=== PATIENT | female | born 1995 | race Caucasian/White ===

== ENCOUNTER 2016-12-03 14:02 | Outpatient (CLI) | payer OTHER, MEDICAID ==
[2016-12-03 15:20] LABS: APPEARANCE,URINE CLEAR; BILIRUBIN,URINE NEGATIVE (NEGATIVE); GLUCOSE, URINE NEGATIVE (NEGATIVE); KETONES,URINE NEGATIVE (NEGATIVE); LEUKOCYTE ESTERASE,URINE NEGATIVE (NEGATIVE); NITRITE,URINE NEGATIVE (NEGATIVE); PROTEIN,URINE NEGATIVE (NEGATIVE); URINE SPECIFIC GRAVITY 1.001; UROBILINOGEN,URINE NEGATIVE mg/dL (<2.0)
[2016-12-03 15:35] LABS: URINE BARBITURATES SCREEN NEGATIVE; URINE METHADONE SCREEN NEGATIVE; URINE PHENCYCLIDINE SCREEN NEGATIVE
--- NOTE | 2016-12-03 16:01 | L&D Flow Sheet ---
LD Flowsheet Datetime Report Generated by CPN: 12/03/2016 16:00 Datetime: 12/03/2016 15:00 Uterine Activity Frequency (min): Irritability (Kendy Cordero, RNC) Quality: Mild (Kendy Cordero, RNC) Resting Tone (Palpate): Relaxed (Kendy Cordero, RNC) Assessment A Monitor Mode: External US (Kendy Gil, RNC) FHR Baseline Rate : 140 (Kendy Gil, RNC) Variability: Moderate 6-25 bpm (Kendy Gil, RNC) Accelerations: 15X15 (Kendy Gil, RNC) Decelerations: None (Kendy Gil, RNC) Datetime: 12/03/2016 14:55 Vital Signs NBP Sys/Jimena/Mean (mmHg): 108 (QS system process) : 61 (QS system process) : 79 (QS system process) Pulse: 94 (QS system process) Communication LaborFlag: Antepartum (QS system process) Datetime: 12/03/2016 14:30 Uterine Activity Frequency (min): Irritability (Kendyjoe Cordero, RNC) Duration (sec): 20-40 (Kendyjoe Cordero, RNC) Assessment A Monitor Mode: External US (Kendy Gil, RNC) FHR Baseline Rate : 145 (Kendy Gil, RNC) Variability: Moderate 6-25 bpm (Kendy Gil, RNC) Accelerations: None (Kendy Gil, RNC) Decelerations: None (Kendy Gil, RNC) Datetime: 12/03/2016 14:24 Pulse: 147 (QS system process) SpO2 (%): 100 (QS system process) Communication LaborFlag: Antepartum (QS system process) Datetime: 12/03/2016 14:21 Vital Signs NBP Sys/Jimena/Mean (mmHg): 103 (QS system process) : 59 (QS system process) : 76 (QS system process) Pulse: 126 (QS system process) Communication LaborFlag: Antepartum (QS system process)
--- NOTE | 2016-12-08 10:02 | L&D Current Admission ---
Current Admit Datetime Report Generated by CPN: 12/08/2016 10:02 ADMISSION INFORMATION Chief Complaint: Pt arrived to L_D with complaints of SOB for weeks, vaginal pressure, her hips hurting, and cramping. (12/03/2016 14:55:ANGELES Mcnamara)
--- NOTE | 2016-12-08 10:02 | Antepartum Discharge Summary ---
Antepartum DC Datetime Report Generated by CPN: 12/08/2016 10:02 DIET/ACTIVITY/RESTRICTIONS Diet: Regular (12/03/2016 16:29:ANGELES Mcnamara) Activity: Normal Activity (12/03/2016 16:29:Kendy Cordero RNC) TEACHING/INSTRUCTIONS/REFERRALS Instructions Given To: patient (12/03/2016 16:29:ANGELES Mcnamara) Instructions Understood: Patient Verbalized Understanding; Support Person Verbalized Understanding (12/03/2016 16:29:ANGELES Mcnamara) Referrals: None (12/03/2016 16:29:ANGELES Mcnamara) Educational Materials- Other: Term (12/03/2016 16:29:ANGELES Mcnamara) DISCHARGE INFORMATION Discharged AMA: No (12/03/2016 16:29:ANGELES Mcnamara) Discharge Date/Time: 12/03/2016 15:45 (12/03/2016 16:29:ANGELES Mcnamara) Discharged To: Home (12/03/2016 16:29:ANGELES Mcnamara) Discharge Provider Name: Dr. Bella (12/03/2016 16:29:ANGELES Mcnamara) Accompanied By: (12/03/2016 16:29:ANGELES Mcnamara) Discharge Method: Ambulatory (12/03/2016 16:29:ANGELES Mcnamara) Condition: Stable (12/03/2016 16:29:ANGELES Mcnamara) FOLLOW UP INFORMATION Follow Up With: [facility] (12/03/2016 16:29:ANGELES Mcnamara) Follow Up On: As Scheduled (12/03/2016 16:29:ANGELES Mcnamara) Follow Up Phone Number: [facility] - (12/03/2016 16:29:ANGELES Mcnamara) Comments: Pt physically left L_D ambulatory in stable condition with at side. (12/03/2016 16:29:ANGELES Mcnamara)
--- NOTE | 2016-12-08 10:03 | L&D Flow Sheet ---
LD Flowsheet Datetime Report Generated by CPN: 12/08/2016 10:03 Datetime: 12/03/2016 15:39 Comments: Monitors removed from abdomen for d/c home. (Kendy Gil, RNC) Datetime: 12/03/2016 15:00 Uterine Activity Frequency (min): Irritability (Kendy Gil, RNC) Quality: Mild (Kendy Gil, RNC) Resting Tone (Palpate): Relaxed (Kendy Gil, RNC) Assessment A Monitor Mode: External US (Kendy Gil, RNC) FHR Baseline Rate : 140 (Kendy Gil, RNC) Variability: Moderate 6-25 bpm (Kendy Gil, RNC) Accelerations: 15X15 (Kendy Gil, RNC) Decelerations: None (Kendy Gil, RNC) Datetime: 12/03/2016 14:55 Vital Signs NBP Sys/Jimena/Mean (mmHg): 108 (QS system process) : 61 (QS system process) : 79 (QS system process) Pulse: 94 (QS system process) Pain Pain Scale: 1 (Kendy Cordero [facility]) Maternal Assessment Level of Consciousness: Fully Conscious (Kendy Cordero [facility]) DTR's/Clonus: DTRs 2+; No Clonus (Kendy Cordero [facility]) Headache: Denies (Kendy Cordero [facility]) Breath Sounds, Left: Clear and Equal (Kendy Cordero [facility]) Breath Sounds, Right: Clear and Equal (ANGELES Mcnamara) Nausea/Vomiting: Denies (ANGELES Mcnamara) RUQ Epigastric Pain: Denies (ANGELES Mcnamara) Teaching Instructional Method: Verbal; Patient Instructed; Family/Support Person Instructed (ANGELES Mcnamara) Plan of Care: Plan of Care Discussed; Vaginal Delivery; Labor (ANGELES Mcnamara) Unit Routine: [place] to Room; Call Porter; Bed; Monitoring; Bathroom Privileges; Routine Time Outs (ANGELES Mcnamara) Labor/Induction: Labor Stages (ANGELES Mcnamara) Related: Common Discomforts of ; Maternal Physical Changes; Hydration; Activity and Rest (ANGELES Mcnamara) Communication LaborFlag: Antepartum (QS system process) Datetime: 12/03/2016 14:30 Uterine Activity Frequency (min): Irritability (Kendy Gil, RNC) Duration (sec): 20-40 (Kendy Gil, RNC) Assessment A Monitor Mode: External US (Kendy Gil, RNC) FHR Baseline Rate : 145 (Kendy Gil, RNC) Variability: Moderate 6-25 bpm (Kendy Gil, RNC) Accelerations: None (Kendy Gil, RNC) Decelerations: None (Kendy Gil, RNC) Datetime: 12/03/2016 14:24 Pulse: 147 (QS system process) SpO2 (%): 100 (QS system process) Communication LaborFlag: Antepartum (QS system process) Datetime: 12/03/2016 14:21 Vital Signs NBP Sys/Jimena/Mean (mmHg): 103 (QS system process) : 59 (QS system process) : 76 (QS system process) Pulse: 126 (QS system process) Communication LaborFlag: Antepartum (QS system process) Datetime: 11/08/2016 09:30 Communication LaborFlag: Antepartum (QS system process) Datetime: 11/08/2016 09:14 Temperature (C): 37.0 (QS system process) Communication LaborFlag: Antepartum (QS system process) Datetime: 11/08/2016 08:51 Communication LaborFlag: Antepartum (QS system process) Datetime: 11/08/2016 08:43 Temperature (C): 37.1 (QS system process) Communication LaborFlag: Antepartum (QS system process)
--- NOTE | 2016-12-08 10:03 | L&D General Admission ---
General Admit Datetime Report Generated by CPN: 12/08/2016 10:03 INFORMATION Patient Age: 21 (11/08/2016 08:25:QS system process) EDC: 01/05/2017 00:00 (11/08/2016 08:28:Mallory Grimaldo RN) : 2 (11/08/2016 08:28:Mallory Grimaldo RN) Para: 0 (12/03/2016 16:29:ANGELES Mcnamara) Para: 0 (11/08/2016 08:28:Mallory Grimaldo RN) Term: 0 (11/08/2016 08:28:Mallory Grimaldo RN) : 0 (11/08/2016 08:28:Mallory Grimaldo RN) Spontaneous Abortions: 1 (11/08/2016 08:28:Mallory Grimaldo RN) Induced Abortions: 0 (11/08/2016 08:28:Mallory Grimaldo RN) Livin (11/08/2016 08:28:Mallory Grimaldo RN) Cesareans: 0 (11/08/2016 08:28:Mallory Grimaldo RN) VBACs: 0 (11/08/2016 08:28:Mallory Grimaldo RN) Ectopic: 0 (11/08/2016 08:28:Mallory Grimaldo RN) Multiple Births: 0 (11/08/2016 08:28:Mallory Grimaldo RN) Baby, Number in Womb: 1 (12/03/2016 16:29:ANGELES Mcnamara) Baby, Number in Womb: 1 (11/08/2016 08:28:Mallory Grimaldo RN) CARE Primary Machinist Mate: [facility] (11/08/2016 08:28:Mallory Grimaldo RN) Month of 1st Visit: April (11/08/2016 08:28:Mallory Grimaldo RN) Adequate Care: Yes (11/08/2016 08:28:Mallory Grimaldo RN) Height (in): 67 (12/03/2016 14:33:QS system process) Height (in): 67 (11/08/2016 09:13:QS system process) Height (in): 67 (11/08/2016 08:44:QS system process) Height (in): 67 (11/08/2016 08:39:QS system process) Height (in): 67 (11/08/2016 08:38:QS system process) ALLERGIES Medication Allergy: No (11/08/2016 08:28:Mallory Grimaldo RN) Medication Allergies: No Known Allergies (12/03/2016) (12/03/2016 14:33:QS system process) Medication Allergies: None (11/08/2016 08:28:Mallory Grimaldo RN) Latex Allergy: No Latex Allergies (11/08/2016 08:28:Mallory Grimaldo RN) Food Allergies: None (11/08/2016 08:28:Mallory Grimaldo RN) Environmental Allergies: None (11/08/2016 08:28:Mallory Grimaldo RN) COMMUNICATION Primary Language: Yakut (11/08/2016 08:28:Mallory Grimaldo RN) Communication Barrier(s): None (11/08/2016 08:28:Mallory Grimaldo RN) DEMOGRAPHICS Address: [address] [place] [address], [place] [address] (11/08/2016 08:25:QS system process) Zipcode: [address] (11/08/2016 08:25:QS system process) Home (11/08/2016 08:25:QS system process) SSN: [id number] (11/08/2016 08:25:QS system process) Next of Kin Name: MANUEL OLIVAREZ (11/08/2016 08:25:QS system process) Next of Kin (11/08/2016 08:25:QS system process) Next of Kin Relationship: OR (11/08/2016 08:25:QS system process) Date of : 1995 (11/08/2016 08:25:QS system process) Marital Status: Single (11/08/2016 08:25:QS system process) Sex: Female (11/08/2016 08:25:QS system process) Race: (11/08/2016 08:25:QS system process) Ethnicity: Non- or (11/08/2016 08:25:QS system process) Amish: None (11/08/2016 08:25:QS system process) DRUG AND ALCOHOL USE Alcohol: No (11/08/2016 08:28:Mallory Grimaldo RN) Cigarettes: Never Smoker. [id number] (11/08/2016 08:28:Mallory Grimaldo RN) Marijuana: No (11/08/2016 08:28:Mallory Grimaldo RN) Cocaine: No (11/08/2016 08:28:Mallory Grimaldo RN) Other Illicit Drugs: Yes (11/08/2016 08:28:Mallory Grimaldo RN) VACCINE HISTORY Influenza Vaccine: No (11/08/2016 08:28:Mallory Grimaldo RN) Pneumococcal Vaccine: No (11/08/2016 08:28:Mallory Grimaldo RN) Tetanus Vaccine: Yes (11/08/2016 08:28:Mallory Grimaldo RN) Tetanus Date: 11/02/2016 (11/08/2016 08:28:Mallory Grimaldo RN) Tdap Vaccine: Yes (11/08/2016 08:28:Mallory Grimaldo RN) Tdap Date: 11/02/2016 (11/08/2016 08:28:Mallory Grimaldo RN) Hepatitis B Vaccine: No (11/08/2016 08:28:Mallory Grimaldo RN) Computer Numerical Control Grinder: [facility] (11/08/2016 08:28:Mallory Grimaldo RN) Feeding Preference: Breast (11/08/2016 08:28:Mallory Grimaldo RN) Benefit of Breast Feed Discussed: Yes (11/08/2016 08:28:Mallory Grimaldo RN) Circumcision: N/A (11/08/2016 08:28:Mallory Grimaldo RN) Classes Attended: Mariya (11/08/2016 08:28:Mallory Grimaldo RN) Tubal Ligation: No (11/08/2016 08:28:Mallory Grimaldo RN) Tubal Authorization Signed: N/A (11/08/2016 08:28:Mallory Grimaldo RN) Consent: N/A (11/08/2016 08:28:Mallory Grimaldo RN) Consent Signed: N/A (11/08/2016 08:28:Mallory Grimaldo RN) Pain Management Plans: Natural; Medications (11/08/2016 08:28:Mallory Grimaldo RN) Plans for Labor and Delivery: None (11/08/2016 08:28:Mallory Grimaldo RN) Support Person: Manuel Olivarez (11/08/2016 08:28:Mallory Grimaldo RN) Support Person Relationship: (11/08/2016 08:28:Mallory Grimaldo RN) Cultural/Spritual Practice: Mariya (11/08/2016 08:28:Mallory Grimaldo RN) Spir/Cult Dietary Needs: No (11/08/2016 08:28:Mallory Grimaldo RN) LIVING SITUATION/DISCHARGE PLAN Living Arrangements: House (11/08/2016 08:28:Mallory Grimaldo RN) Adequate Access to:: Electric; Heat; Refrigeration; Plumbing/Running water; Phone; Transportation (11/08/2016 08:28:Mallory Grimaldo RN) WIC Program: Mariya (11/08/2016 08:28:Mallory Grimaldo RN) Discharge Outpatient Program Coordinator Person: Manuel Olivarez (11/08/2016 08:28:Mallory Grimaldo RN) Person to Help after Discharge: Manuel Olivarez (11/08/2016 08:28:Mallory Grimaldo RN) Currently Using Commun Resources: No (11/08/2016 08:28:Mallory Grimaldo RN) Outside Agency/Project Associate: No (11/08/2016 08:28:Mallory Grimaldo RN) Car Seat for Discharge: Yes (11/08/2016 08:28:Mallory Grimaldo RN) Adoption Requested: No (11/08/2016 08:28:Mallory Grimaldo RN) Pt Contact w/ Post : N/A (11/08/2016 08:28:Mallory Grimaldo RN) LABS Blood Type: O Positive (11/08/2016 08:28:Mallory Grimaldo RN) RPR/VDRL: Nonreactive (11/08/2016 08:28:Mallory Grimaldo RN) HIV Exposure Test: Negative (11/08/2016 08:28:Mallory Grimaldo RN) OB/PREVIOUS HISTORY Previous Procedures: None (11/08/2016 08:28:Mallory Grimaldo RN) Current Procedures: Ultrasound; NST (11/08/2016 08:28:Mallory Grimaldo RN) History of Previous : No (11/08/2016 08:28:Mallory Grimaldo RN) History of Gestational Diabetes: No (11/08/2016 08:28:Mallory Grimaldo RN) History of PIH: No (11/08/2016 08:28:Mallory Grimaldo RN) History of Incompetent Cervix: No (11/08/2016 08:28:Mallory Grimaldo RN) History of Placenta Previa/Abrup: No (11/08/2016 08:28:Mallory Grimaldo RN) History of Macrosomia: No (11/08/2016 08:28:Mallory Grimaldo RN) History of IUGR: No (11/08/2016 08:28:Mallory Grimaldo RN) History of Hemorrhage: No (11/08/2016 08:28:Mallory Grimaldo RN) History of Loss/Stillborn: No (11/08/2016 08:28:Mallory Grimaldo RN) History of : No (11/08/2016 08:28:Mallory Grimaldo RN) History of D (Rh) Sensitization: No (11/08/2016 08:28:Mallory Grimaldo RN) History Recurrent Loss/Stillborn: No (11/08/2016 08:28:Mallory Grimaldo RN) History Depression/PP Depression: No (11/08/2016 08:28:Mallory Grimaldo RN) History of Uterine Anomaly/VALENTIN: No (11/08/2016 08:28:Mallory Grimaldo RN) History of Infertility: No (11/08/2016 08:28:Mallory Grimaldo RN) History of ART Treatment: No (11/08/2016 08:28:Mallory Grimaldo RN) History of VALENTIN: No (11/08/2016 08:28:Mallory Grimaldo RN) Comments Obstetrical History: G1 - SAB with D_C in 2013 (8 weeks) (11/08/2016 08:28:Mallory Grimaldo RN) MEDICAL HISTORY Med Hx Diabetes: No (11/08/2016 08:28:Mallory Grimaldo RN) Med Hx Hypertension: No (11/08/2016 08:28:Mallory Grimaldo RN) Med Hx Heart Disease: No (11/08/2016 08:28:Mallory Grimaldo RN) Med Hx Autoimmune Disorder: No (11/08/2016 08:28:Mallory Grimaldo RN) Med Hx Kidney Disease/UTI: No (11/08/2016 08:28:Mallory Grimaldo RN) Med Hx Neurologic/Epilepsy: No (11/08/2016 08:28:Mallory Grimaldo RN) Med Hx Psychiatric Disorders: No (11/08/2016 08:28:Mallory Grimaldo RN) Med Hx Hepatitis/Liver Disease: No (11/08/2016 08:28:Mallory Grimaldo RN) Med Hx Varicosities/Phlebitis: No (11/08/2016 08:28:Mallory Grimaldo RN) Med Hx Thyroid Dysfunction: No (11/08/2016 08:28:Mallory Grimaldo RN) Med Hx Trauma/Violence: No (11/08/2016 08:28:Mallory Grimaldo RN) Med Hx Blood Transfusion: No (11/08/2016 08:28:Mallory Grimaldo RN) Med Hx Pulmonary (Asthma,TB): No (11/08/2016 08:28:Mallory Grimaldo RN) Med Hx Breast: No (11/08/2016 08:28:Mallory Grimaldo RN) Med Hx MOLD PULLER Surgery: No (11/08/2016 08:28:Mallory Grimaldo RN) Med Hx Hospitalization/Surgery: No (11/08/2016 08:28:Mallory Grimaldo RN) Med Hx Anesthetic Complications: No (11/08/2016 08:28:Mallory Grimaldo RN) Med Hx Abnormal Pap Smear: Yes (11/08/2016 08:28:Mallory Grimaldo RN) Other Medical Diseases: No (11/08/2016 08:28:Mallory Grimaldo RN) Med Hx Significant Family Hx: No (11/08/2016 08:28:Mallory Grimaldo RN) Details of Med/Surg Hx: LGSIL - colpo 6 weeks pp (11/08/2016 08:28:Mallory Grimaldo RN) INFECTIOUS HISTORY Inf Hx Gonorrhea: No (11/08/2016 08:28:Mallory Grimaldo RN) Inf Hx Chlamydia: Yes (11/08/2016 08:28:Mallory Grimaldo RN) Inf Hx Syphilis: No (11/08/2016 08:28:Mallory Grimaldo RN) Inf Hx HIV/AIDS: No (11/08/2016 08:28:Mallory Grimaldo RN) Inf Hx Human Papilloma Virus: Yes (11/08/2016 08:28:Mallory Grimaldo RN) Inf Hx Pt/Partner Genital Herpes: No (11/08/2016 08:28:Mallory Grimaldo RN) Inf Hx Tuberculosis/Exposure: No (11/08/2016 08:28:Mallory Grimaldo RN) Inf Hx Hepatitis B,C: No (11/08/2016 08:28:Mallory Grimaldo RN) Inf Hx Rash or Viral Illness: No (11/08/2016 08:28:Mallory Grimaldo RN) Details of Infectious Hx: Hx of Chlamydia. MEHDI on 07/13/2016 (11/08/2016 08:28:Mallory Grimaldo RN) GENETIC HISTORY Gen Hx Age >=35 at SHAMIR: No (11/08/2016 08:28:Mallory Grimaldo RN) Gen Hx Thalassemia: No (11/08/2016 08:28:Mallory Grimaldo RN) Gen Hx Congenital Heart Defect: No (11/08/2016 08:28:Mallory Grimaldo RN) Gen Hx Neural Tube Defect: No (11/08/2016 08:28:Mallory Grimaldo RN) Gen Hx Down's Syndrome: No (11/08/2016 08:28:Mallory Grimaldo RN) Gen Hx Chinmay-Sachs: No (11/08/2016 08:28:Mallory Grimaldo RN) Gen Hx Jalil: No (11/08/2016 08:28:Mallory Grimaldo RN) Gen Hx Familial Dysautonomia: No (11/08/2016 08:28:Mallory Grimaldo RN) Gen Hx Sickle Cell Disease/Trait: No (11/08/2016 08:28:Mallory Grimaldo RN) Gen Hx Hemophilia/Blood Disorder: No (11/08/2016 08:28:Mallory Grimaldo RN) Gen Hx Muscular Dystrophy: No (11/08/2016 08:28:Mallory Grimaldo RN) Gen Hx Cystic Fibrosis: No (11/08/2016 08:28:Mallory Grimaldo RN) Gen Hx Huntingtons Chorea: No (11/08/2016 08:28:Mallory Grimaldo RN) Gen Hx Mental Retardation/Autism: No (11/08/2016 08:28:Mallory Grimaldo RN) Gen Hx Tested for Fragile X: No (11/08/2016 08:28:Mallory Grimaldo RN) Gen Hx Other Inher/Chromosomal: No (11/08/2016 08:28:Mallory Grimaldo RN) Gen Hx Maternal Metabolic DO: No (11/08/2016 08:28:Mallory Grimaldo RN) Gen Hx Pt Father or FOB Defect: No (11/08/2016 08:28:Mallory Grimaldo RN) Gen Hx Other Genetic History: No (11/08/2016 08:28:Mallory Grimaldo RN) Gen Hx Drugs/Meds since LMP: No (11/08/2016 08:28:Mallory Grimaldo RN)
--- NOTE | 2016-12-08 10:04 | L&D Discharge Summary ---
OB Discharge Summary Datetime Report Generated by CPN: 12/08/2016 10:04 DISCHARGE DIAGNOSIS Diagnosis/Symptoms: Round Ligament Syndrome Diagnoses/Symptoms Other: IUP at 35.2 weeks with common discomforts of Gestation: 35.2 Number of Babies in Womb: 1 Parity: 0 DIET/ACTIVITY/RESTRICTIONS Diet: Regular Activity: Normal Activity TEACHING/INSTRUCTIONS/REFERRALS Instructions Given To: patient Instructions Understood: Patient Verbalized Understanding; Support Person Verbalized Understanding Referrals: None Educational Materials- Other: Term DISCHARGE INFORMATION Discharged AMA: No Physician Notified of Disch AMA: DrSteffanie Menesess Discharge Date/Time: 12/03/2016 15:45 Discharged To: Home Discharge Provider Name: Bella Accompanied By: Discharge Method: Ambulatory Condition: Stable FOLLOW UP INFORMATION Follow Up With: [facility] Follow Up On: As Scheduled Follow Up Phone Number: [facility] - Comments: Pt physically left L_D ambulatory in stable condition with at side.
--- NOTE | 2016-12-08 10:04 | Non Stress Test Report ---
Non Stress Test Datetime Report Generated by CPN: 12/08/2016 10:03 DEMOGRAPHIC EGA NST: 35.2 INDICATION Indication for Study: Other Indication for Study (NST) Other: LC MONITORING Monitor Explained: Monitor Explained; Test Explained; Patient Verbalized Understanding Time on Monitor: 12/03/2016 14:55 Time off Monitor: 12/03/2016 15:39 NST Duration: 44 NST INTERVENTIONS NST Interventions: PO Hydration; Reposition Patient Physician Notified NST: Dr. Bella BABY A: [id number] Movement : Present Contraction Frequency : Irr FHR Baseline : 135 Accelerations : 15X15 Decelerations : None Variability : Moderate 6-25bpm NST Review: Meets Criteria for Reactive NST NST Results: Reactive
== END 2016-12-03 15:45 | disposition home or self-care (01) ==
LOC: LC 14:02
PROVIDERS: ATTEND Specialist
PROC: 4A1HXCZ Monitoring of Products of Conception, Cardiac Rate, External Approach (ICD-10-PCS; principal; 2016-12-03)
DX: Z34.93 Encounter for supervision of normal pregnancy, unspecified, third trimester (principal); Z3A.35 35 weeks gestation of pregnancy
CPT/HCPCS: 59025; 80307; 81001

== ENCOUNTER 2016-12-19 21:37 | Outpatient (CLI) | payer OTHER, MEDICAID ==
--- NOTE | 2016-12-19 22:01 | L&D Flow Sheet ---
LD Flowsheet Datetime Report Generated by CPN: 12/19/2016 22:00 Datetime: 12/19/2016 21:53 Vital Signs NBP Sys/Jimena/Mean (mmHg): 129 (QS system process) : 82 (QS system process) : 100 (QS system process) Pulse: 104 (QS system process) Communication LaborFlag: Antepartum (QS system process) Datetime: 12/19/2016 21:50 Uterine Activity Frequency (min): every 2 minutes per pt (Yessi Ring, RN) Vaginal Exam Membrane Status: Intact (Yessi Ring, RN) Vaginal Bleeding: None (Yessi Ring, RN) Maternal Assessment Level of Consciousness: Fully Conscious (Yessi Ring, RN) DTR's/Clonus: DTRs 2+; No Clonus (Yessi Ring, RN) Headache: Denies (Yessi Ring, RN) Breath Sounds, Left: Clear and Equal (Yessi Ring, RN) Breath Sounds, Right: Clear and Equal (Yessi Ring, RN) Nausea/Vomiting: Present (Annotations: Nauseated) (Yessi Ring, RN) RUQ Epigastric Pain: Denies (Yessi Ring, RN)
[2016-12-19 22:07] LABS: APPEARANCE,URINE CLEAR; BILIRUBIN,URINE NEGATIVE (NEGATIVE); GLUCOSE, URINE NEGATIVE (NEGATIVE); KETONES,URINE NEGATIVE (NEGATIVE); LEUKOCYTE ESTERASE,URINE NEGATIVE (NEGATIVE); NITRITE,URINE NEGATIVE (NEGATIVE); PROTEIN,URINE NEGATIVE (NEGATIVE); URINE SPECIFIC GRAVITY 1.006; UROBILINOGEN,URINE NEGATIVE mg/dL (<2.0)
[2016-12-19 22:22] LABS: URINE BARBITURATES SCREEN NEGATIVE; URINE METHADONE SCREEN NEGATIVE; URINE OPIATES LOW NEGATIVE; URINE PHENCYCLIDINE SCREEN NEGATIVE
[2016-12-19] MEDS ORDERED: ZOLPIDEM TARTRATE 5 MG TABLET PO ONE (23:13)
[2016-12-19] MEDS ORDERED: ZOLPIDEM TARTRATE 5 MG TABLET ONE (23:25)
--- NOTE | 2017-01-03 23:50 | Non Stress Test Report ---
Non Stress Test Datetime Report Generated by CPN: 01/03/2017 23:49 DEMOGRAPHIC EGA NST: 37.4 EGA NST: 35.2 INDICATION Indication for Study: Ordered by Provider Indication for Study: Other Indication for Study (NST) Other: labor check Indication for Study (NST) Other: LC URINE RESULTS Urine Protein, NST: Negative Urine Ketones - NST: Negative Urine Glucose - NST: Negative Urine Blood - NST: Negative MONITORING Monitor Explained: Monitor Explained; Test Explained; Patient Verbalized Understanding Monitor Explained: Monitor Explained; Test Explained; Patient Verbalized Understanding Time on Monitor: 12/19/2016 21:55 Time on Monitor: 12/03/2016 14:55 Time off Monitor: 12/19/2016 23:19 Time off Monitor: 12/03/2016 15:39 NST Duration: 84 NST Duration: 44 NST INTERVENTIONS NST Interventions: PO Hydration NST Interventions: PO Hydration; Reposition Patient Physician Notified NST: Dr. Gauthier Physician Notified NST: Dr. Bella BABY A: [id number] BABY A Movement : Present Movement : Present Contraction Frequency : 1-2.5 Contraction Frequency : Irr FHR Baseline : 145 FHR Baseline : 135 Accelerations : 15X15 Accelerations : 15X15 Decelerations : None Decelerations : None Variability : Moderate 6-25bpm Variability : Moderate 6-25bpm NST Review: Meets Criteria for Reactive NST NST Review: Meets Criteria for Reactive NST NST Review and Verified By : Steph Hargrove RN NST Results: Reactive NST Results: Reactive NST REPORT Report Trigger: Send Report
== END 2016-12-19 23:27 | disposition home or self-care (01) ==
LOC: LC 21:37
PROVIDERS: ATTEND Specialist
PROC: 4A1HXCZ Monitoring of Products of Conception, Cardiac Rate, External Approach (ICD-10-PCS; principal; 2016-12-19)
DX: O47.1 False labor at or after 37 completed weeks of gestation (principal); Z3A.37 37 weeks gestation of pregnancy
CPT/HCPCS: 59025; 80307; 81005

== ENCOUNTER 2017-01-03 23:51 | Outpatient (CLI) | payer OTHER, MEDICAID ==
[2017-01-04 00:44] LABS: BILIRUBIN,URINE NEGATIVE (NEGATIVE); GLUCOSE, URINE NEGATIVE (NEGATIVE); KETONES,URINE NEGATIVE (NEGATIVE); LEUKOCYTE ESTERASE,URINE NEGATIVE (NEGATIVE); NITRITE,URINE NEGATIVE (NEGATIVE); PROTEIN,URINE NEGATIVE (NEGATIVE); UROBILINOGEN,URINE NEGATIVE mg/dL (<2.0)
[2017-01-04 00:45] LABS: APPEARANCE,URINE CLEAR; URINE SPECIFIC GRAVITY 1.005
[2017-01-04 00:46] LABS: URINE BARBITURATES SCREEN NEGATIVE; URINE METHADONE SCREEN NEGATIVE; URINE OPIATES LOW NEGATIVE; URINE PHENCYCLIDINE SCREEN NEGATIVE
[2017-01-04] MEDS ORDERED: HYDROXYZINE PAMOATE 50 MG CAPSULE PO ONE (02:07)
[2017-01-04] MEDS ORDERED: HYDROXYZINE PAMOATE 50 MG CAPSULE ONE (02:16)
--- NOTE | 2017-01-04 04:45 | L&D Discharge Summary ---
OB Discharge Summary Datetime Report Generated by CPN: 01/04/2017 04:45 DISCHARGE DIAGNOSIS Diagnosis/Symptoms: False Labor Diagnoses/Symptoms Other: IUP at 35.2 weeks with common discomforts of Treatment/Procedures Other: PO Hydration Gestation: 39.5 Number of Babies in Womb: 1 Parity: 0 DIET/ACTIVITY/RESTRICTIONS Diet: Regular Activity: Normal Activity TEACHING/INSTRUCTIONS/REFERRALS Instructions Given To: pt, Instructions Understood: Patient Verbalized Understanding; Support Person Verbalized Understanding Referrals: None Educational Materials- Other: Term DISCHARGE INFORMATION Discharged AMA: No Physician Notified of Disch AMA: Dr. Bella Discharge Date/Time: 01/04/2017 02:21 Discharged To: Home Discharge Provider Name: Morris Accompanied By: Discharge Method: Ambulatory Condition: Stable FOLLOW UP INFORMATION Follow Up With: [facility] Follow Up On: As Scheduled Follow Up Phone Number: [facility] - Comments: Pt to LD c/o UC's q5 min. Pt placed on monitor, SVE 1.5/60/-2. Pt ambulated around unit x1 hour, SVE recheck unchanged. Vistiril 50mg PO administered. Pt educated on term and when to return to hospital. Pt/ verbalized understanding and demonstrated understanding. Pt to f/u with [facility] as scheduled. Pt d/c to home in stable condition.
--- NOTE | 2017-01-04 04:45 | L&D Current Admission ---
Current Admit Datetime Report Generated by CPN: 01/04/2017 04:45 ADMISSION INFORMATION Chief Complaint: Contractions (Annotations: Pt c/o contractions starting at 1900, approx every 5 min apart rating a 3 out of 5 in pain. ) (01/04/2017 00:15:Shweta Rogers RN) Chief Complaint: Contractions (12/19/2016 21:50:Yessi Hargrove RN) Chief Complaint: Pt arrived to L_D with complaints of SOB for weeks, vaginal pressure, her hips hurting, and cramping. (12/03/2016 14:55:ANGELES Mcnamara) Chief Complaint: Uterine Cramping; Back Pain (11/08/2016 08:51:Mallory Grimaldo RN)
--- NOTE | 2017-01-04 04:45 | Antepartum Discharge Summary ---
Antepartum DC Datetime Report Generated by CPN: 01/04/2017 04:45 DIET/ACTIVITY/RESTRICTIONS Diet: Regular (01/04/2017 02:21:Shweta Errichiello, RN) Activity: Normal Activity (01/04/2017 02:21:Shweta Errichiello, RN) TEACHING/INSTRUCTIONS/REFERRALS Instructions Given To: pt, (01/04/2017 02:21:Shweta Sheilaichiello, RN) Instructions Understood: Patient Verbalized Understanding; Support Person Verbalized Understanding (01/04/2017 02:21:Shweta Rogers RN) Referrals: None (01/04/2017 02:21:Shweta Rogers RN) Educational Materials- Other: Term (01/04/2017 02:21:Shweta Rogers RN) DISCHARGE INFORMATION Discharged AMA: No (01/04/2017 02:21:Shweta Rogers RN) Discharge Date/Time: 01/04/2017 02:21 (01/04/2017 02:21:Shweta Rogers RN) Discharged To: Home (01/04/2017 02:21:Shweta Rogers RN) Discharge Provider Name: Dr Caceres (01/04/2017 02:21:Shweta Rogers RN) Accompanied By: (01/04/2017 02:21:Shweta Rogers RN) Discharge Method: Ambulatory (01/04/2017 02:21:Shweta Rogers RN) Condition: Stable (01/04/2017 02:21:Shweta Rogers RN) FOLLOW UP INFORMATION Follow Up With: [facility] (01/04/2017 02:21:Shweta Rogers RN) Follow Up On: As Scheduled (01/04/2017 02:21:Shweta Rogers RN) Follow Up Phone Number: [facility] - (01/04/2017 02:21:Shweta Rogers RN) Comments: Pt to LD c/o UC's q5 min. Pt placed on monitor, SVE 1.5/60/-2. Pt ambulated around unit x1 hour, SVE recheck unchanged. Vistiril 50mg PO administered. Pt educated on term and when to return to hospital. Pt/ verbalized understanding and demonstrated understanding. Pt to f/u with [facility] as scheduled. Pt d/c to home in stable condition. (01/04/2017 02:21:Shweta Rogers RN)
--- NOTE | 2017-01-04 04:45 | L&D Flow Sheet ---
LD Flowsheet Datetime Report Generated by CPN: 01/04/2017 04:45 Datetime: 01/04/2017 02:21 Communication Comments: Pt d/c off unit via ambulation in stable condition. (Shweta Errichiello, RN) Datetime: 01/04/2017 02:20 Medications Medication Comments: Visitiril 50mg PO (Shweta Errichiello, RN) Datetime: 01/04/2017 02:09 Maternal Comments: Monitors removed and turned off to prepare for pt discharge. (Shweta Errichiello, RN) Datetime: 01/04/2017 02:06 Communication Comments: Call placed to Dr Morris MD made aware of pt condition, complaints and SVE. Orders received for Visitiril 50mg PO NOW, d/c to home and f/u with [facility] as scheduled. Orders carried out. (Shweta Errichiello, RN) Datetime: 01/04/2017 02:04 Vaginal Exam Dilatation (cm): 1.5 (Shweta Errichiello, RN) Effacement (%): 60 (Shweta Errichiello, RN) Station: -2 (Shweta Errichiello, RN) Exam by: C Fore RN (Shweta Errichiello, RN) Datetime: 01/04/2017 00:59 Vital Signs Stage of : Antepartum (Shweta Sheilaichiello, RN) Uterine Activity Monitor Mode: External (Shweta Sheilaichiello, RN) Frequency (min): 1.5-3 (Shweta Ken, RN) Quality: Mild/Moderate (Shweta Sheilaichiello, RN) Duration (sec): 50-90 (Shweta Ken, RN) Resting Tone (Palpate): Relaxed (Shweta Sheilaichiello, RN) Assessment A Monitor Mode: External US (Shweta Rogers, RN) FHR Baseline Rate : 135 (Shweta Rogers, RN) FHR Baseline Changes: No Baseline Change (Shweta Ken, RN) Variability: Moderate 6-25 bpm (Shweta Errichiello, RN) Accelerations: 15X15 (Shweta Errichiello, RN) Decelerations: None (Shweta Sheilaichibryant, RN) Maternal Comments: Monitors removed and turned off for pt to ambulate around 2nd floor. (Shweta Errichiello, RN) Patient Care Patient Position/Activity: Left Tilt; Semi-Fowlers (Shweta Errichiello, RN) Communication Communication: RN at Bedside; RN Reviewed Strip (Shweta Errichiello, RN) Datetime: 01/04/2017 00:40 NBP Sys/Jimena/Mean (mmHg): 123 (QS system process) : 74 (QS system process) : 91 (QS system process) Pulse: 88 (QS system process) LaborFlag: Antepartum (QS system process) Datetime: 01/04/2017 00:30 Vital Signs Stage of : Antepartum (Shweta Errichiello, RN) Uterine Activity Monitor Mode: External (Shweta Errichiello, RN) Frequency (min): 2-3 (Shweta Rogers, RN) Quality: Mild/Moderate (Shweta Ken, RN) Duration (sec): 60-120 (Shweta Rogers, RN) Resting Tone (Palpate): Relaxed (Shweta Ken, RN) Assessment A Monitor Mode: External US (Shweta Rogers, RN) FHR Baseline Rate : 135 (Shweta Rogers, RN) FHR Baseline Changes: No Baseline Change (Shweta Melaniaello, RN) Variability: Moderate 6-25 bpm (Shweta Melaniaello, RN) Accelerations: 15X15 (Shweta Ken, RN) Decelerations: None (Shweta Melaniaello, RN) Communication Communication: RN at Bedside; RN Reviewed Strip (Shweta Rogers, RN) Datetime: 01/04/2017 00:27 I/O Interventions: Popsicle (Shweta Errichiello, RN) Datetime: 01/04/2017 00:15 Vital Signs Stage of : Antepartum (Shweta Errichiello, RN) Uterine Activity Monitor Mode: External (Shweta Errichiello, RN) Frequency (min): 2.5-3 (Shweta Errichiello, RN) Quality: Mild/Moderate (Shweta Errichiello, RN) Duration (sec): 70-80 (Shweta Errichiello, RN) Resting Tone (Palpate): Relaxed (Shweta Errichiello, RN) Assessment A Monitor Mode: External US (Shweta Errichiello, RN) FHR Baseline Rate : 145 (Shweta Errichiello, RN) FHR Baseline Changes: No Baseline Change (Shweta Errichiello, RN) Variability: Moderate 6-25 bpm (Shweta Errichiello, RN) Accelerations: 10X10 (Shweta Errichiello, RN) Decelerations: None (Shweta Errichiello, RN) Pain Pain Scale: 3 (Shweta Errichiello, RN) Pain Presence: None/Denies (Shweta Errichiello, RN) Pain Presence: Intermittent (Shweta Rogers RN) Pain Type: Contraction (Shweta Rogers RN) Pain Location: Abdomen (Shweta Rogers RN) Pain Goal: 1 (Shweta Rogers RN) Pain Relief Measures: Comfort Measures (Shweta Rogers RN) Pain Coping: Talking Through Contractions (Shweta Rogers RN) Maternal Assessment Level of Consciousness: Fully Conscious (Shweta Rogers RN) Maternal Assessment Level of Consciousness: Fully Conscious (Shweta Rogers RN) DTR's/Clonus: DTRs 2+; No Clonus (Shweta Rogers RN) DTR's/Clonus: DTRs 2+; No Clonus (Shweta Rogers RN) Headache: Denies (Shweta Rogers RN) Headache: Denies (Shweta Rogers RN) Breath Sounds, Left: Clear and Equal (Shweta Rogers RN) Breath Sounds, Left: Clear and Equal (Shweta Rogers RN) Breath Sounds, Right: Clear and Equal (Shweta Rogers RN) Breath Sounds, Right: Clear and Equal (Shweta Rogers RN) Nausea/Vomiting: Denies (Shweta Rogers RN) Nausea/Vomiting: Denies (Shweta Rogers RN) RUQ Epigastric Pain: Denies (Shweta Rogers RN) RUQ Epigastric Pain: Denies (Shweta Rogers RN) Patient Care Patient Position/Activity: Left Tilt; Semi-Fowlers (Shweta Rogers RN) Comfort Measures: Breathing/Relaxation; Coaching; Family Support (Shweta Rogers RN) I/O Interventions: Clear Liquids Given (Shweta Rogers RN) Communication Communication: RN at Bedside; RN Reviewed Strip (Shweta Rogers RN) LaborFlag: Antepartum (QS system process) Datetime: 01/04/2017 00:13 NBP Sys/Jimena/Mean (mmHg): 134 (QS system process) : 77 (QS system process) : 99 (QS system process) Pulse: 83 (QS system process) LaborFlag: Antepartum (QS system process) Datetime: 01/04/2017 00:10 NBP Sys/Jimena/Mean (mmHg): 116 (QS system process) : 65 (QS system process) : 84 (QS system process) Pulse: 88 (QS system process) LaborFlag: Antepartum (QS system process) Datetime: 01/04/2017 00:07 Vaginal Exam Dilatation (cm): 1.5 (Shweta Rogers RN) Effacement (%): 60 (Shweta Rogers RN) Station: -2 (Shweta Rogers RN) Exam by: Nico Hallman RN (Shweta Rogers RN) Vaginal Bleeding: None (Shweta Rogers RN) Cervix, Consistency: Moderate (Shweta Rogers RN)
--- NOTE | 2017-01-04 04:45 | L&D General Admission ---
General Admit Datetime Report Generated by CPN: 01/04/2017 04:45 INFORMATION Patient Age: 21 (11/08/2016 08:25:QS system process) EDC: 01/05/2017 00:00 (11/08/2016 08:28:Mallory Grimaldo RN) : 2 (11/08/2016 08:28:Mallory Grimaldo RN) Para: 0 (12/19/2016 23:14:Yessi Hargrove RN) Para: 0 (12/03/2016 16:29:ANGELES Mcnamara) Para: 0 (11/08/2016 08:28:Mallory Grimaldo RN) Term: 0 (11/08/2016 08:28:Mallory Grimaldo RN) : 0 (11/08/2016 08:28:Mallory Grimaldo RN) Spontaneous Abortions: 1 (11/08/2016 08:28:Mallory Grimaldo RN) Induced Abortions: 0 (11/08/2016 08:28:Mallory Grimaldo RN) Livin (11/08/2016 08:28:Mallory Grimaldo RN) Cesareans: 0 (11/08/2016 08:28:Mallory Grimaldo RN) VBACs: 0 (11/08/2016 08:28:Mallory Grimaldo RN) Ectopic: 0 (11/08/2016 08:28:Mallory Grimaldo RN) Multiple Births: 0 (11/08/2016 08:28:Mallory Grimaldo RN) Baby, Number in Womb: 1 (12/19/2016 23:14:Yessi Hargrove RN) Baby, Number in Womb: 1 (12/03/2016 16:29:ANGELES Mcnamara) Baby, Number in Womb: 1 (11/08/2016 08:28:Mallory Grimaldo RN) CARE Primary Wildlife Protector: [facility] (11/08/2016 08:28:Mallory Grimaldo RN) Month of 1st Visit: April (11/08/2016 08:28:Mallory Grimaldo RN) Adequate Care: Yes (11/08/2016 08:28:Mallory Grimaldo RN) Height (in): 67 (01/04/2017 01:31:QS system process) Height (in): 67 (12/19/2016 21:52:QS system process) Height (in): 67 (12/03/2016 14:33:QS system process) Height (in): 67 (11/08/2016 09:13:QS system process) Height (in): 67 (11/08/2016 08:44:QS system process) Height (in): 67 (11/08/2016 08:39:QS system process) Height (in): 67 (11/08/2016 08:38:QS system process) ALLERGIES Medication Allergy: No (11/08/2016 08:28:Mallory Grimaldo RN) Medication Allergies: No Known Allergies (01/04/2017) (01/04/2017 01:30:QS system process) Medication Allergies: No Known Allergies (12/19/2016) (12/19/2016 21:51:QS system process) Medication Allergies: No Known Allergies (12/03/2016) (12/03/2016 14:33:QS system process) Medication Allergies: None (11/08/2016 08:28:Mallory Grimaldo RN) Latex Allergy: No Latex Allergies (11/08/2016 08:28:Mallory Grimaldo RN) Food Allergies: None (11/08/2016 08:28:Mallory Grimaldo RN) Environmental Allergies: None (11/08/2016 08:28:Mallory Grimaldo RN) COMMUNICATION Primary Language: Bahraini (11/08/2016 08:28:Mallory Grimaldo RN) Medical Tx Preferred Language: Bahraini (Annotations: Data stored by N on behalf of user) (11/08/2016 08:28:Rosemarie Vega RN) Communication Barrier(s): None (11/08/2016 08:28:Mallory Grimaldo RN) DEMOGRAPHICS Address: [address] [place] [id number] (11/08/2016 08:25:QS system process) Zipcode: [address] (11/08/2016 08:25:QS system process) Home (11/08/2016 08:25:QS system process) SSN: [id number] (11/08/2016 08:25:QS system process) Next of Kin Name: MANUEL OLIVAREZ (11/08/2016 08:25:QS system process) Next of Kin (11/08/2016 08:25:QS system process) Next of Kin Relationship: OR (11/08/2016 08:25:QS system process) Date of : 1995 (11/08/2016 08:25:QS system process) Marital Status: Single (11/08/2016 08:25:QS system process) Sex: Female (11/08/2016 08:25:QS system process) Race: (11/08/2016 08:25:QS system process) Ethnicity: Non- or (11/08/2016 08:25:QS system process) Restorationist: None (11/08/2016 08:25:QS system process) DRUG AND ALCOHOL USE Alcohol: No (11/08/2016 08:28:Mallory Grimaldo RN) Cigarettes: Never Smoker. [id number] (11/08/2016 08:28:Mallory Grimaldo RN) Marijuana: No (11/08/2016 08:28:Mallory Grimaldo RN) Cocaine: No (11/08/2016 08:28:Mallory Grimaldo RN) Other Illicit Drugs: No (11/08/2016 08:28:Shweta Rogers RN) VACCINE HISTORY Influenza Vaccine: No (11/08/2016 08:28:Mallory Grimaldo RN) Pneumococcal Vaccine: No (11/08/2016 08:28:Mallory Grimaldo RN) Tetanus Vaccine: Yes (11/08/2016 08:28:Mallory Grimaldo RN) Tetanus Date: 11/02/2016 (11/08/2016 08:28:Mallory Grimaldo RN) Tdap Vaccine: Yes (11/08/2016 08:28:Mallory Grimaldo RN) Tdap Date: 11/02/2016 (11/08/2016 08:28:Mallory Grimaldo RN) Hepatitis B Vaccine: No (11/08/2016 08:28:Mallory Grimaldo RN) Brine Tank Separator Operator: [facility] (11/08/2016 08:28:Mallory Grimaldo RN) Feeding Preference: Breast (11/08/2016 08:28:Mallory Grimaldo RN) Benefit of Breast Feed Discussed: Yes (11/08/2016 08:28:Mallory Grimaldo RN) Circumcision: N/A (11/08/2016 08:28:Mallory Grimaldo RN) Classes Attended: No (11/08/2016 08:28:Mallory Grimaldo RN) Tubal Ligation: No (11/08/2016 08:28:Mallory Grimaldo RN) Tubal Authorization Signed: N/A (11/08/2016 08:28:Mallory Grimaldo RN) Consent: N/A (11/08/2016 08:28:Mallory Grimaldo RN) Consent Signed: N/A (11/08/2016 08:28:Mallory Grimaldo RN) Pain Management Plans: Natural; Medications (11/08/2016 08:28:Mallory Grimaldo RN) Plans for Labor and Delivery: None (11/08/2016 08:28:Mallory Grimaldo RN) Support Person: Manuel Olivarez (11/08/2016 08:28:Mallory Grimaldo RN) Support Person Relationship: (11/08/2016 08:28:Mallory Grimaldo RN) Cultural/Spritual Practice: No (11/08/2016 08:28:Mallory Grimaldo RN) Spir/Cult Dietary Needs: No (11/08/2016 08:28:Mallory Grimaldo RN) LIVING SITUATION/DISCHARGE PLAN Living Arrangements: House (11/08/2016 08:28:Mallory Grimaldo RN) Adequate Access to:: Electric; Heat; Refrigeration; Plumbing/Running water; Phone; Transportation (11/08/2016 08:28:Mallory Grimaldo RN) WIC Program: No (11/08/2016 08:28:Mallory Grimaldo RN) Discharge Family Services Worker Person: Manuel Olivarez (11/08/2016 08:28:Mallory Grimaldo RN) Person to Help after Discharge: Manuel Olivarez (11/08/2016 08:28:Mallory Grimaldo RN) Currently Using Commun Resources: No (11/08/2016 08:28:Mallory Grimaldo RN) Outside Agency/Utility Bill Collector: No (11/08/2016 08:28:Mallory Grimaldo RN) Car Seat for Discharge: Yes (11/08/2016 08:28:Mallory Grimaldo RN) Adoption Requested: No (11/08/2016 08:28:Mallory Grimaldo RN) Pt Contact w/ Post : N/A (11/08/2016 08:28:Mallory Grimaldo RN) LABS Blood Type: O Positive (11/08/2016 08:28:Mallory Grimaldo RN) Antibody Screen: negative (11/08/2016 08:28:Radha Resendiz RN) Group Beta Strep: negative (11/08/2016 08:28:Radha Resendiz RN) Gonorrhea: Negative (11/08/2016 08:28:Radha Resendiz RN) Chlamydia: Negative (11/08/2016 08:28:Radha Resendiz RN) RPR/VDRL: Nonreactive (11/08/2016 08:28:Mallory Grimaldo RN) HIV Exposure Test: Negative (11/08/2016 08:28:Mallory Grimaldo RN) Hepatitis B: Negative (11/08/2016 08:28:Radha Resendiz RN) Rubella: Immune (11/08/2016 08:28:Radha Resendiz RN) Varicella: Susceptible (11/08/2016 08:28:Radha Resendiz RN) OB/PREVIOUS HISTORY Previous Procedures: None (11/08/2016 08:28:Mallory Grimaldo RN) Current Procedures: Ultrasound; NST (11/08/2016 08:28:Mallory Grimaldo RN) History of Previous : No (11/08/2016 08:28:Mallory Grimaldo RN) History of Gestational Diabetes: No (11/08/2016 08:28:Mallory Grimaldo RN) History of PIH: No (11/08/2016 08:28:Mallory Grimaldo RN) History of Incompetent Cervix: No (11/08/2016 08:28:Mallory Grimaldo RN) History of Placenta Previa/Abrup: No (11/08/2016 08:28:Mallory Grimaldo RN) History of Macrosomia: No (11/08/2016 08:28:Mallory Grimaldo RN) History of IUGR: No (11/08/2016 08:28:Mallory Grimaldo RN) History of Hemorrhage: No (11/08/2016 08:28:Mallory Grimaldo RN) History of Loss/Stillborn: No (11/08/2016 08:28:Mallory Grimaldo RN) History of : No (11/08/2016 08:28:Mallory Girmaldo RN) History of D (Rh) Sensitization: No (11/08/2016 08:28:Mallory Grimaldo RN) History Recurrent Loss/Stillborn: No (11/08/2016 08:28:Mallory Grimaldo RN) History Depression/PP Depression: No (11/08/2016 08:28:Mallory Grimaldo RN) History of Uterine Anomaly/VALENTIN: No (11/08/2016 08:28:Mallory Grimaldo RN) History of Infertility: No (11/08/2016 08:28:Mallory Grimaldo RN) History of ART Treatment: No (11/08/2016 08:28:Mallory Grimaldo RN) History of VALENTIN: No (11/08/2016 08:28:Mallory Grimaldo RN) Comments Obstetrical History: G1 - SAB with D_C in 2013 (8 weeks) G2: current (11/08/2016 08:28:Yessi Hargrove RN) MEDICAL HISTORY Med Hx Diabetes: No (11/08/2016 08:28:Mallory Grimaldo RN) Med Hx Hypertension: No (11/08/2016 08:28:Mallory Grimaldo RN) Med Hx Heart Disease: No (11/08/2016 08:28:Mallory Grimaldo RN) Med Hx Autoimmune Disorder: No (11/08/2016 08:28:Mallory Grimaldo RN) Med Hx Kidney Disease/UTI: No (11/08/2016 08:28:Mallory Grimaldo RN) Med Hx Neurologic/Epilepsy: No (11/08/2016 08:28:Mallory Grimaldo RN) Med Hx Psychiatric Disorders: No (11/08/2016 08:28:Mallory Grimaldo RN) Med Hx Hepatitis/Liver Disease: No (11/08/2016 08:28:Mallory Grimaldo RN) Med Hx Varicosities/Phlebitis: No (11/08/2016 08:28:Mallory Grimaldo RN) Med Hx Thyroid Dysfunction: No (11/08/2016 08:28:Mallory Grimaldo RN) Med Hx Trauma/Violence: No (11/08/2016 08:28:Mallory Grimaldo RN) Med Hx Blood Transfusion: No (11/08/2016 08:28:Mallory Grimaldo RN) Med Hx Pulmonary (Asthma,TB): No (11/08/2016 08:28:Mallory Grimaldo RN) Med Hx Breast: No (11/08/2016 08:28:Mallory rGimaldo RN) Med Hx ASSEMBLY MACHINE OFFBEARER Surgery: No (11/08/2016 08:28:Mallory Grimaldo RN) Med Hx Hospitalization/Surgery: No (11/08/2016 08:28:Mallory Grimaldo RN) Med Hx Anesthetic Complications: No (11/08/2016 08:28:Mallory Grimaldo RN) Med Hx Abnormal Pap Smear: Yes (11/08/2016 08:28:Mallory Grimaldo RN) Other Medical Diseases: No (11/08/2016 08:28:Mallory Grimaldo RN) Med Hx Significant Family Hx: No (11/08/2016 08:28:Mallory Grimaldo RN) Details of Med/Surg Hx: LGSIL - colpo 6 weeks pp (11/08/2016 08:28:Mallory Grimaldo RN) INFECTIOUS HISTORY Inf Hx Gonorrhea: No (11/08/2016 08:28:Mallory Grimaldo RN) Inf Hx Chlamydia: Yes (11/08/2016 08:28:Mallory Grimaldo RN) Inf Hx Syphilis: No (11/08/2016 08:28:Mallory Grimaldo RN) Inf Hx HIV/AIDS: No (11/08/2016 08:28:Mallory Grimaldo RN) Inf Hx Human Papilloma Virus: Yes (11/08/2016 08:28:Mallory Grimaldo RN) Inf Hx Pt/Partner Genital Herpes: No (11/08/2016 08:28:Mallory Grimaldo RN) Inf Hx Tuberculosis/Exposure: No (11/08/2016 08:28:Mallory Grimaldo RN) Inf Hx Hepatitis B,C: No (11/08/2016 08:28:Mallory Grimaldo RN) Inf Hx Rash or Viral Illness: No (11/08/2016 08:28:Mallory Grimaldo RN) Details of Infectious Hx: Hx of Chlamydia. MEHDI on 07/13/2016 (11/08/2016 08:28:Mallory Grimaldo RN) GENETIC HISTORY Gen Hx Age >=35 at SHAMIR: No (11/08/2016 08:28:Mallory Grimaldo RN) Gen Hx Thalassemia: No (11/08/2016 08:28:Mallory Grimaldo RN) Gen Hx Congenital Heart Defect: No (11/08/2016 08:28:Mallory Grimaldo RN) Gen Hx Neural Tube Defect: No (11/08/2016 08:28:Mallory Grimaldo RN) Gen Hx Down's Syndrome: No (11/08/2016 08:28:Mallory Grimaldo RN) Gen Hx Chinmay-Sachs: No (11/08/2016 08:28:Mallory Grimaldo RN) Gen Hx Jalil: No (11/08/2016 08:28:Mallory Grimaldo RN) Gen Hx Familial Dysautonomia: No (11/08/2016 08:28:Mallory Grimaldo RN) Gen Hx Sickle Cell Disease/Trait: No (11/08/2016 08:28:Mallory Grimaldo RN) Gen Hx Hemophilia/Blood Disorder: No (11/08/2016 08:28:Mallory Grimaldo RN) Gen Hx Muscular Dystrophy: No (11/08/2016 08:28:Mallory Grimaldo RN) Gen Hx Cystic Fibrosis: No (11/08/2016 08:28:Mallory Grimaldo RN) Gen Hx Huntingtons Chorea: No (11/08/2016 08:28:Mallory Grimaldo RN) Gen Hx Mental Retardation/Autism: No (11/08/2016 08:28:Mallory Grimaldo RN) Gen Hx Tested for Fragile X: No (11/08/2016 08:28:Mallory Grimaldo RN) Gen Hx Other Inher/Chromosomal: No (11/08/2016 08:28:Mallory Grimaldo RN) Gen Hx Maternal Metabolic DO: No (11/08/2016 08:28:Mallory Grimaldo RN) Gen Hx Pt Father or FOB Defect: No (11/08/2016 08:28:Mallory Grimaldo RN) Gen Hx Other Genetic History: No (11/08/2016 08:28:Mallory Grimaldo RN) Gen Hx Drugs/Meds since LMP: Yes (11/08/2016 08:28:Yessi Hargrove RN) Gen Hx Medications: PNV, tylenol (11/08/2016 08:28:Yessi Hargrove RN)
--- NOTE | 2017-01-04 04:45 | L&D Admission Assessment ---
LD ADM ASMT Datetime Report Generated by CPN: 01/04/2017 04:45 PATIENT ASSESSMENT Assessment Type: Admission Assessment (01/04/2017 00:15:Shweta Errichiello, RN) WEIGHT Weight (lb): 167 (01/04/2017 01:31:QS system process) Weight (kg): 75.9 (01/04/2017 01:31:QS system process) BMI: 26.2 (01/04/2017 01:31:QS system process) PAIN Pain Scale: 3 (01/04/2017 00:15:Shweta Rogers RN) Pain Presence: None/Denies (01/04/2017 00:15:Shweta Rogers RN) Pain Presence: Intermittent (01/04/2017 00:15:Shweta Rogers RN) Pain Type: Contraction (01/04/2017 00:15:Shweta Rogers RN) Pain Location: Abdomen (01/04/2017 00:15:Shweta Rogers RN) Pain Goal: 1 (01/04/2017 00:15:Shwtea Rogers RN) Pain Related to Contraction: Yes (01/04/2017 00:15:Shweta Rogers RN) CONTRACTIONS Frequency (min): 1.5-3 (01/04/2017 00:59:Shweta Rogers RN) Frequency (min): 2-3 (01/04/2017 00:30:Shweta Rogers RN) Frequency (min): 2.5-3 (01/04/2017 00:15:Shweta Rogers RN) Duration (sec): 50-90 (01/04/2017 00:59:Shweta Rogers RN) Duration (sec): 60-120 (01/04/2017 00:30:Shweta Rogers RN) Duration (sec): 70-80 (01/04/2017 00:15:Shweta Rogers RN) Quality: Mild/Moderate (01/04/2017 00:59:Shweta Rogers RN) Quality: Mild/Moderate (01/04/2017 00:30:Shweta Rogers RN) Quality: Mild/Moderate (01/04/2017 00:15:Shweta Rogers RN) Resting Tone [place]: Relaxed (01/04/2017 00:59:Shweta Rogers RN) Resting Tone [place]: Relaxed (01/04/2017 00:30:Shweta Rogers RN) Resting Tone [place]: Relaxed (01/04/2017 00:15:Shweta Rogers RN) VAGINAL EXAM Dilatation (cm): 1.5 (01/04/2017 02:04:Shweta Rogers RN) Dilatation (cm): 1.5 (01/04/2017 00:07:Shweta Rogers RN) Effacement (%): 60 (01/04/2017 02:04:Shweta Rogers RN) Effacement (%): 60 (01/04/2017 00:07:Shweta Rogers RN) Station: -2 (01/04/2017 02:04:Shweta Rogers RN) Station: -2 (01/04/2017 00:07:Shweta Rogers RN) NEURO Level of Consciousness: Fully Conscious (01/04/2017 00:15:Shweta Rogers RN) Level of Consciousness: Fully Conscious (01/04/2017 00:15:Shweta Rogers RN) DTR's/Clonus: DTRs 2+; No Clonus (01/04/2017 00:15:Shweta Rogers RN) DTR's/Clonus: DTRs 2+; No Clonus (01/04/2017 00:15:Shweta Rogers RN) Headache: Denies (01/04/2017 00:15:Shweta Rogers RN) Headache: Denies (01/04/2017 00:15:Shweta Rogers RN) Dizziness: No (01/04/2017 00:15:Shweta Rogers RN) Blurred Vision: No (01/04/2017 00:15:Shweta Rogers RN) Extremity Numbness/Tingling : None (01/04/2017 00:15:Shweta Rogers RN) Extremity Movement: Full Range of Motion (01/04/2017 00:15:Shweta Rogers RN) CARDIOVASCULAR Nailbeds: [place] (01/04/2017 00:15:Shweta Rogers RN) Capillary Refill: Less than 3 Seconds (01/04/2017 00:15:Shweta Rogers RN) Facial Edema: None (01/04/2017 00:15:Shweta Rogers RN) Rosa's Sign Left Leg: Negative (01/04/2017 00:15:Shweta Rogers RN) Rosa's Sign Right Leg: Negative (01/04/2017 00:15:Shweta Rogers RN) RESPIRATORY Respiratory Effort: Unlabored; Regular Rhythm; Equal Expansion (01/04/2017 00:15:Shweta Rogers, RN) Breath Sounds, Left: Clear and Equal (01/04/2017 00:15:Shweta Rogers, RN) Breath Sounds, Left: Clear and Equal (01/04/2017 00:15:Shweta Ken, RN) Breath Sounds, Right: Clear and Equal (01/04/2017 00:15:Shweta Rogers, RN) Breath Sounds, Right: Clear and Equal (01/04/2017 00:15:Shweta Rogers, RN) Cough Productivity: None (01/04/2017 00:15:Shweta Rogers, RN) GASTROINTESTINAL Nausea/Vomiting: Denies (01/04/2017 00:15:Shweta Rogers RN) Nausea/Vomiting: Denies (01/04/2017 00:15:Shweta Rogers RN) Bowel Sounds: Normoactive; All Quadrants (01/04/2017 00:15:Shweta Rogers RN) RUQ Epigastric Pain: Denies (01/04/2017 00:15:Shweta Rogers RN) RUQ Epigastric Pain: Denies (01/04/2017 00:15:Shweta Rogers RN) GENITOURINARY Bladder: Nondistended (01/04/2017 00:15:Shweta Rogers RN) Frequency of Urination: No (01/04/2017 00:15:Shweta Rogers RN) Urination Burning: No (01/04/2017 00:15:Shweta Rogers RN) CVA Tenderness: No (01/04/2017 00:15:Shweta Rogers RN) Vaginal Bleeding: None (01/04/2017 00:15:Shweta Rogers RN) Vaginal Discharge Color: N/A (01/04/2017 00:15:Shweta Rogers RN) INTEGUMENTARY Skin Color: Normal for Race (01/04/2017 00:15:Shweta Rogers RN) Skin Temperature: Warm (01/04/2017 00:15:Shweta Rogers RN) Skin Moisture: Dry (01/04/2017 00:15:Shweta Rogers RN) JAYSHREE SKIN ASSESSMENT Jayshree Scale Sensory Perception: No Impairment- Responds to verbal commands. Has no sensory deficit which would limit ability to feel or voice pain or discomfort (01/04/2017 00:15:Shweta Rogers RN) Jayshree Scale Moisture: Rarely Moist- Skin is usually dry. Linen only requires changing at routine intervals (01/04/2017 00:15:Shweta Rogers RN) Jayshree Scale Activity: Walks Frequently- Walks outside the room at least twice a day and inside room at least every 2 hours during the day. (01/04/2017 00:15:Shwtea Rogers RN) Jayshree Scale Mobility: No Limitations- Makes major and frequent changes in position without assistance (01/04/2017 00:15:Shweta Rogers RN) Jayshree Scale Nutrition: Excellent- Eats most of every meal. Never refuses a meal. Usually eats a total of 4 or more servings of meat and dairy products. Occasionally eats between meals. Does not require supplementation (01/04/2017 00:15:Shweta Rogers RN) Jayshree Scale Friction and Shear: No Apparent Problem- Moves in bed and in chair independently and has sufficient muscle strength to lift up completely during move. Maintains good position in bed or chair at all times (01/04/2017 00:15:Shweta Rogers RN) Jayshree Scale Total: 23 (01/04/2017 00:15:QS system process) Jayshree Scale Risk: No Risk of Pressure Ulcer Noted at this Time (01/04/2017 00:15:QS system process) SUPPORT Family Support: Significant Other supportive, at bedside frequently (01/04/2017 00:15:Shweta Rogers RN) SAFETY Call Porter Within Reach: Yes (01/04/2017 00:15:Shweta Rogers RN) Side Rails Up: Yes (01/04/2017 00:15:Shweta Rogers RN) Bed Wheels Locked: Yes (01/04/2017 00:15:Shweta Rogers RN) Arm Bands Present: Yes (01/04/2017 00:15:Shweta Rogers RN) FALL SCREEN Fall Risk History of Falling: (0) No (01/04/2017 00:15:Shweta Rogers RN) Fall Risk Secondary Diagnosis: (0) No (01/04/2017 00:15:Shweta Rogers RN) Fall Risk Ambulatory Aid: (0) None/Bedrest/Wheelchair/Nurse Assist (01/04/2017 00:15:Shweta Rogers RN) Fall Risk IV Therapy: (0) No (01/04/2017 00:15:Shweta Rogers RN) Fall Risk Gait: (0) Normal/Bedrest/Immobile (01/04/2017 00:15:Shweta Rogers RN) Fall Risk Mental Status: (0) Oriented to Own Ability (01/04/2017 00:15:Shweta Rogers RN) Fall Risk Score: 0 (01/04/2017 00:15:QS system process) Fall Risk Score Definition: No Risk: No action required (01/04/2017 00:15:QS system process) BABY A FHR Baseline Rate (bpm) Baby A: 135 (01/04/2017 00:59:Shweta Rogers RN) FHR Baseline Rate (bpm) Baby A: 135 (01/04/2017 00:30:Shweta Rogers RN) FHR Baseline Rate (bpm) Baby A: 145 (01/04/2017 00:15:Shweta Rogers RN) Variability Baby A: Moderate 6-25 bpm (01/04/2017 00:59:Shweta Rogers RN) Variability Baby A: Moderate 6-25 bpm (01/04/2017 00:30:Shweta Rogers RN) Variability Baby A: Moderate 6-25 bpm (01/04/2017 00:15:Shweta Rogers RN) Accelerations Baby A: 15X15 (01/04/2017 00:59:Shweta Rogers RN) Accelerations Baby A: 15X15 (01/04/2017 00:30:Shweta Rogers RN) Accelerations Baby A: 10X10 (01/04/2017 00:15:hSweta Rogers RN) Decelerations Baby A: None (01/04/2017 00:59:Shweta Rogers RN) Decelerations Baby A: None (01/04/2017 00:30:Shweta Rogers RN) Decelerations Baby A: None (01/04/2017 00:15:Shweta Rogers RN) ADDITIONAL COMMENTS Assessment Flag: Admission Assessment (01/04/2017 00:15:QS system process)
--- NOTE | 2017-01-07 10:22 | Non Stress Test Report ---
Non Stress Test Datetime Report Generated by CPN: 01/07/2017 10:22 DEMOGRAPHIC Test Number: 3 EGA NST: 39.6 INDICATION Indication for Study: Ordered by Provider URINE RESULTS Urine Protein, NST: Negative Urine Ketones - NST: Negative Urine Glucose - NST: Negative Urine Blood - NST: Negative MONITORING Monitor Explained: Monitor Explained; Test Explained; Patient Verbalized Understanding Time on Monitor: 01/04/2017 00:06 Time off Monitor: 01/04/2017 00:59 NST Duration: 53 NST INTERVENTIONS NST Interventions: PO Hydration; Other NST Interventions Other: Visitril 50mg PO Physician Notified NST: Dr Morris BABY A Movement : Present Contraction Frequency : 1.5-3 FHR Baseline : 135 Accelerations : 15X15 Decelerations : None Variability : Moderate 6-25bpm NST Review: Meets Criteria for Reactive NST NST Review and Verified By : Zeyad Vega RN NST Results: Reactive NST REPORT Report Trigger: Send Report
== END 2017-01-04 02:21 | disposition home or self-care (01) ==
LOC: LC 23:51
PROVIDERS: ATTEND Obstetrics & Gynecology
PROC: 4A1HXCZ Monitoring of Products of Conception, Cardiac Rate, External Approach (ICD-10-PCS; principal; 2017-01-03)
DX: O47.1 False labor at or after 37 completed weeks of gestation (principal); Z3A.39 39 weeks gestation of pregnancy
CPT/HCPCS: 80307; 81005

== ENCOUNTER 2017-01-07 10:21 | Outpatient (CLI) | payer OTHER, MEDICAID | END 2017-01-07 11:00 | disposition home or self-care (01) | LOC: LC 10:21 | PROVIDERS: ATTEND Obstetrics & Gynecology | PROC: 4A1HXCZ Monitoring of Products of Conception, Cardiac Rate, External Approach (ICD-10-PCS; principal; 2017-01-07) | DX: Z34.93 Encounter for supervision of normal pregnancy, unspecified, third trimester (principal); Z3A.40 40 weeks gestation of pregnancy | CPT/HCPCS: 59025 ==

== ENCOUNTER 2017-01-07 17:00 | Outpatient (CLI) | payer OTHER, MEDICAID ==
--- NOTE | 2017-01-07 18:01 | L&D Flow Sheet ---
LD Flowsheet Datetime Report Generated by CPN: 01/07/2017 18:00 Datetime: 01/07/2017 17:48 NBP Sys/Jimena/Mean (mmHg): 123 (QS system process) : 80 (QS system process) : 98 (QS system process) Pulse: 106 (QS system process) LaborFlag: Antepartum (QS system process) Datetime: 01/07/2017 17:30 Monitor Mode: External; Palpation (Carmina Omer RN) Frequency (min): 1.5-2.5 (Carmina Omer RN) Quality: Moderate (Carmina Omer RN) Duration (sec): 50-110 (Carmina Omer RN) Resting Tone (Palpate): Relaxed (Carmina Omer RN) Monitor Mode: External US (Carmina Omer RN) FHR Baseline Rate : 140 (Carmina Omer RN) Variability: Moderate 6-25 bpm (Carmina Omer RN) Accelerations: 15X15 (Carmina Omer RN) Decelerations: None (Carmina Omer RN) Datetime: 01/07/2017 17:26 Provider Reviewed Strip: Yes (Carmina Omer RN) Communication: Provider Orders Received; Call/Page Placed to Provider (Carmina Omer RN) Provider Notified (Name): Dr. Bella (Carmina Omer RN) Notification Reason: Status Update; Status; Membrane Status; Uterine Activity; Pain; Maternal Vital Sign Change (Carmina Omer RN) Communication Comments: Notified provider of FHTs, CTXs, SVE, pain, and Vs. received order to observe her for an hour and recheck her cervix (Carmina Omer RN) Datetime: 01/07/2017 17:16 NBP Sys/[place]/Mean (mmHg): 129 (QS system process) : 71 (QS system process) : 94 (QS system process) Pulse: 100 (QS system process) LaborFlag: Antepartum (QS system process) Datetime: 01/07/2017 17:15 Frequency (min): patient isn't sure (Carmina Omer RN) Pain Scale: 4 (Carmina Omer RN) Pain Presence: Intermittent (Carmina Omer RN) Pain Type: Cramping; Contraction (Carmina Omer RN) Pain Location: Abdomen (Carmina Omer RN) Pain Goal: 2 (Carmina Omer RN) Pain Coping: Breathing Through Contractions (Carmina Omer RN) Membrane Status: Intact (Carmina Omer RN) Vaginal Bleeding: None (Carmina Omer RN) Level of Consciousness: Fully Conscious (Carmina Omer RN) DTR's/Clonus: DTRs 2+; No Clonus (Carmina Omer RN) Headache: Denies (Carmina Omer RN) Breath Sounds, Left: Clear and Equal (Carmina Omer RN) Breath Sounds, Right: Clear and Equal (Carmina Omer RN) Nausea/Vomiting: Denies (Carmina Omer RN) RUQ Epigastric Pain: Denies (Carmina Omer RN) Instructional Method: Demo; Verbal; Patient Instructed; Family/Support Person Instructed; Verbalized Understanding (Carmina Omer RN) Plan of Care: Plan of Care Discussed (Carmina Omer RN) Unit Routine: [place] to Room; Call Porter; Bed; Monitoring (Carmina Omer RN) Labor/Induction: Labor Stages (Carmina Omer RN) Pain Management: Pain Scale/Goals; Comfort Measures (Carmina Omer RN) LaborFlag: Antepartum (QS system process) Datetime: 01/07/2017 17:14 Dilatation (cm): 2.5 (Carmina Oemr RN) Effacement (%): 90 (Carmina Omer RN) Station: -2 (Carmina Omer RN) Exam by: Erika Omer RN (Carmina Omer RN) Vaginal Bleeding: None (Carmina Omer RN) Cervix, Position: Anterior (Carmina Omer RN) Vaginal Exam Comments: head is blottable (Carmina Omer RN) Datetime: 01/07/2017 10:53 Comments: EFM off for discharge to home. See Discharge summary ([facility], [facility]) Instructional Method: Written; Patient Instructed; Family/Support Person Instructed; Verbalized Understanding ([facility]) Related: Common Discomforts of ; Nutrition; Hydration; Activity and Rest (Renee Edgeley [facility]) Teaching Comments: Reviewed kick counts from previous labor checks and term precautions. See discharge summary ([facility], [facility]) Datetime: 01/07/2017 10:45 Provider Reviewed Strip: Yes ([facility]) Communication: Provider Orders Received ([facility]) Communication Comments: Dr Bella on unit strip reviewed and noted as reactive. Discharge orders received ([facility]) Datetime: 01/07/2017 10:32 NBP Sys/[place]/Mean (mmHg): 126 (QS system process) : 78 (QS system process) : 97 (QS system process) Pulse: 93 (QS system process) LaborFlag: Antepartum (QS system process) Datetime: 01/07/2017 10:31 Instructional Method: Demo; Verbal; Patient Instructed; Family/Support Person Instructed; Verbalized Understanding (ANGELES Palacios) Plan of Care: Plan of Care Discussed (ANGELES Palacios) Unit Routine: [place] to Room; Call Porter; Monitoring (ANGELES Palacios) Teaching Comments: POC for labor check process , NST and expected outcomes (ANGELES Palacios)
[2017-01-07] MEDS ORDERED: MORPHINE SULFATE 10 MG/ML INJ ONE (18:18)
[2017-01-07 19:21] LABS: APPEARANCE,URINE CLEAR; BILIRUBIN,URINE NEGATIVE (NEGATIVE); GLUCOSE, URINE NEGATIVE (NEGATIVE); KETONES,URINE NEGATIVE (NEGATIVE); LEUKOCYTE ESTERASE,URINE NEGATIVE (NEGATIVE); NITRITE,URINE NEGATIVE (NEGATIVE); PROTEIN,URINE NEGATIVE (NEGATIVE); URINE SPECIFIC GRAVITY 1.003; UROBILINOGEN,URINE NEGATIVE mg/dL (<2.0)
[2017-01-07 19:36] LABS: URINE BARBITURATES SCREEN NEGATIVE; URINE METHADONE SCREEN NEGATIVE; URINE PHENCYCLIDINE SCREEN NEGATIVE
--- NOTE | 2017-01-07 19:40 | Non Stress Test Report ---
Non Stress Test Datetime Report Generated by CPN: 01/07/2017 19:39 DEMOGRAPHIC EGA NST: 40.2 INDICATION Indication for Study: Other Indication for Study (NST) Other: LC MONITORING Monitor Explained: Monitor Explained; Test Explained; Patient Verbalized Understanding Time on Monitor: 01/07/2017 17:15 Time off Monitor: 01/07/2017 19:22 NST Duration: 127 NST INTERVENTIONS NST Interventions: None Physician Notified NST: Dr. Bella BABY A Movement : Present Contraction Frequency : 1.5-3 FHR Baseline : 130 Accelerations : 15X15 Decelerations : None Variability : Moderate 6-25bpm NST Review: Meets Criteria for Reactive NST NST Review and Verified By : Valentino Medina RN NST REPORT Report Trigger: Send Report
[2017-01-07 19:41] LABS: URINE OPIATES LOW UNCONFIRMED POSITIVE
== END 2017-01-07 19:30 | disposition home or self-care (01) ==
LOC: LC 17:00
PROVIDERS: ATTEND Obstetrics & Gynecology
PROC: 4A1HXCZ Monitoring of Products of Conception, Cardiac Rate, External Approach (ICD-10-PCS; principal; 2017-01-07)
DX: Z34.93 Encounter for supervision of normal pregnancy, unspecified, third trimester (principal); Z3A.40 40 weeks gestation of pregnancy
CPT/HCPCS: 59025; 81005; 80307; J2270

== ENCOUNTER 2017-01-07 22:49 | Inpatient (IN) | payer OTHER, MEDICAID ==
[2017-01-07] MEDS ORDERED: OXYTOCIN/NORMAL SALINE 20 UNIT/1,000 ML RTUINJ ONE (23:09)
[2017-01-07] MEDS ORDERED: MISOPROSTOL 0.2 MG TABLET ONE (23:09)
[2017-01-07] MEDS ORDERED: LIDOCAINE 1% INJ-PF (10 MG/ML) 30 ML SDV ONE (23:09)
[2017-01-07 23:35] LABS: ABSOLUTE LYMPHOCYTES (AUTO) 0.9 10^3/uL (0.5-4.7); ABSOLUTE MONOCYTES (AUTO) 0.8 10^3/uL (0.1-1.4); ABSOLUTE NEUT (AUTO) 11.7 10^3/uL (1.7-8.2); BASOPHILS % (AUTO) 0.3 % (0-2); EOSINOPHILS % (AUTO) 0.3 % (0-6); HEMATOCRIT 29.6 % (36.0-47.0); HEMOGLOBIN 9.4 g/dL (12.0-15.5); HGB HCT DIFFERENCE -1.4; LYMPHOCYTES % (AUTO) 6.4 % (13-45); MEAN CORPUSCULAR HEMOGLOBIN 22.3 pg (27.0-33.4); MEAN CORPUSCULAR HGB CONC 31.7 g/dL (32.0-36.0); MEAN CORPUSCULAR VOLUME 70 fl (80-97); MONOCYTES % (AUTO) 5.6 % (3-13); RED BLOOD COUNT 4.21 10^6/uL (3.72-5.28); RED CELL DISTRIBUTION WIDTH 17.5 % (11.5-14.0); SEGMENTED NEUTROPHILS % (AUTO) 87.4 % (42-78); WHITE BLOOD COUNT 13.4 10^3/uL (4.0-10.5)
[2017-01-08] MEDS ORDERED: BUPIVACAINE HCL 0.25 % INJ/PF (2.5 MG/1 ML) 30 ML VIAL ONE (03:25)
[2017-01-08] MEDS ORDERED: EPHEDRINE SULFATE INJ 50 MG/1 ML AMPULE ONE (03:25)
[2017-01-08] MEDS ORDERED: FENTANYL/BUPIVACAINE/NS/PF 200 MCG/100 ML RTUINJ EPI ONE (03:25)
[2017-01-08] MEDS ORDERED: OXYTOCIN/NORMAL SALINE 20 UNIT/1,000 ML RTUINJ ONE (04:42)
[2017-01-08] MEDS ORDERED: BENZOIN/ALOE VERA/STORAX/TOLU TINCTURE 60 ML TP PRN (04:45)
[2017-01-08] MEDS ORDERED: BUPIVACAINE HCL 0.25 % INJ/PF (2.5 MG/1 ML) 30 ML VIAL INFIL ONE (04:45)
[2017-01-08] MEDS: RINGERS SOLUTION,LACTATED 1,000 ML IV PRN ×2 (04:55→11:49)
[2017-01-08] MEDS: FENTANYL/BUPIVACAINE/NS/PF 100 ML EPI PRN ×2 (05:07→13:52)
--- NOTE | 2017-01-08 08:02 | L&D Flow Sheet ---
LD Flowsheet Datetime Report Generated by CPN: 01/08/2017 08:00 Datetime: 01/08/2017 07:33 NBP Sys/Jimena/Mean (mmHg): 111 (QS system process) : 64 (QS system process) : 82 (QS system process) Pulse: 104 (QS system process) Respirations: 14 (Danica Brown RN) Temperature (F): 99.2 (Danica Brown RN) Temperature (C): 37.3 (QS system process) Temperature Route: Oral (Danica Brown RN) Pain Scale: 0 (Danica Brown RN) Pain Presence: None/Denies (Danica Brown RN) Pain Type: N/A (Danica Brown RN) Pain Goal: 0 (Danica Brown RN) LaborFlag: Antepartum (QS system process) Datetime: 01/08/2017 07:21 Communication: Report Given to [facility] RN (Caty Law RN) Datetime: 01/08/2017 07:03 NBP Sys/Jimena/Mean (mmHg): 110 (QS system process) : 66 (QS system process) : 82 (QS system process) Pulse: 105 (QS system process) LaborFlag: Antepartum (QS system process) Datetime: 01/08/2017 07:00 Monitor Mode: External; Palpation (Caty Law, RN) Frequency (min): 1.5-3.5 (Caty Law RN) Quality: Strong (Caty Ledgerwood, RN) Duration (sec): 60-100 (Caty Ledgerwood, RN) Duration Criteria: Less than Two 120 Second Contractions (Caty Ledgerwood, RN) Pattern: Normal: <= 5 Contractions in 10 Minutes (Caty Ledgerwood, RN) Resting Tone (Palpate): Relaxed (Caty Ledgerwood, RN) Monitor Mode: External US (Caty Ledgerwood, RN) FHR Baseline Rate : 130 (Caty Ledgerwood, RN) FHR Baseline Changes: No Baseline Change (Caty Ledgerwood, RN) Variability: Minimal - Undetectable to <=5 bpm (Caty Ledgerwood, RN) Accelerations: None (Caty Ledgerwood, RN) Decelerations: None (Caty Ledgerwood, RN) Pitocin (milliunit): Pitocin Remains (milliunits) @ (Annotations: 2) (Caty Ledgerwood, RN) Datetime: 01/08/2017 06:34 NBP Sys/Jimena/Mean (mmHg): 110 (QS system process) : 62 (QS system process) : 82 (QS system process) Pulse: 90 (QS system process) Respirations: 15 (Caty Ledgerwood, RN) LaborFlag: Antepartum (QS system process) Datetime: 01/08/2017 06:30 Monitor Mode: External; Palpation (Caty Ledgerwood, RN) Frequency (min): 1.5-2.5 (Caty Ledgerwood, RN) Quality: Strong (Caty Ledgerwood, RN) Duration (sec): 60-80 (Caty Ledgerwood, RN) Duration Criteria: Less than Two 120 Second Contractions (Caty Ledgerwood, RN) Pattern: Normal: <= 5 Contractions in 10 Minutes (Caty Ledgerwood, RN) Resting Tone (Palpate): Relaxed (Caty Ledgerwood, RN) Monitor Mode: External US (Caty Ledgerwood, RN) FHR Baseline Rate : 130 (Caty Ledgerwood, RN) FHR Baseline Changes: No Baseline Change (Caty Ledgerwood, RN) Variability: Moderate 6-25 bpm (Caty Ledgerwood, RN) Accelerations: 10X10 (Caty Ledgerwood, RN) Decelerations: None (Caty Ledgerwood, RN) Pitocin (milliunit): Pitocin Remains (milliunits) @ (Annotations: 2) (Caty Ledgerwood, RN) Datetime: 01/08/2017 06:15 Monitor Mode: External; Palpation (Caty Ledgerwood, RN) Frequency (min): 1.5-2.5 (Caty Ledgerwood, RN) Quality: Strong (Caty Ledgerwood, RN) Duration (sec): 70-80 (Caty Ledgerwood, RN) Duration Criteria: Less than Two 120 Second Contractions (Caty Ledgerwood, RN) Pattern: Normal: <= 5 Contractions in 10 Minutes (Caty Ledgerwood, RN) Resting Tone (Palpate): Relaxed (Caty Ledgerwood, RN) Monitor Mode: External US (Caty Ledgerwood, RN) FHR Baseline Rate : 135 (Caty Ledgerwood, RN) FHR Baseline Changes: No Baseline Change (Caty Ledgerwood, RN) Variability: Moderate 6-25 bpm (Caty Ledgerwood, RN) Accelerations: 15X15 (Caty Ledgerwood, RN) Decelerations: None (Caty Ledgerwood, RN) Pitocin (milliunit): Pitocin Remains (milliunits) @ 2 (Caty Ledgerwood, RN) Datetime: 01/08/2017 06:04 NBP Sys/Jimena/Mean (mmHg): 109 (QS system process) : 65 (QS system process) : 83 (QS system process) Pulse: 99 (QS system process) LaborFlag: Antepartum (QS system process) Datetime: 01/08/2017 06:00 Monitor Mode: External; Palpation (Caty Ledgerwood, RN) Frequency (min): 1.5-2.5 (Caty Ledgerwood, RN) Quality: Strong (Caty Ledgerwood, RN) Duration (sec): 60-80 (Caty Ledgerwood, RN) Duration Criteria: Less than Two 120 Second Contractions (Caty Ledgerwood, RN) Pattern: Normal: <= 5 Contractions in 10 Minutes (Caty Ledgerwood, RN) Resting Tone (Palpate): Relaxed (Caty Ledgerwood, RN) Monitor Mode: External US (Caty Ledgerwood, RN) FHR Baseline Rate : 130 (Caty Ledgerwood, RN) FHR Baseline Changes: No Baseline Change (Caty Ledgerwood, RN) Variability: Moderate 6-25 bpm (Caty Ledgerwood, RN) Accelerations: 15X15 (Caty Ledgerwood, RN) Decelerations: None (Caty Ledgerwood, RN) Pitocin (milliunit): Pitocin Remains (milliunits) @ 2 (Caty Ledgerwood, RN) Datetime: 01/08/2017 05:59 Pitocin (milliunit): Pitocin Decreased to (milliunits) @ 2 (Caty Ledgerwood, RN) Medication Comments: per Dr Bella order (Caty Ledgerwood, RN) Datetime: 01/08/2017 05:45 Monitor Mode: External; Palpation (Caty Ledgerwood, RN) Frequency (min): 1.5-3 (Caty Ledgerwood, RN) Quality: Strong (Caty Ledgerwood, RN) Duration (sec): 50-90 (Caty Ledgerwood, RN) Duration Criteria: Less than Two 120 Second Contractions (Caty Ledgerwood, RN) Pattern: Normal: <= 5 Contractions in 10 Minutes (Caty Ledgerwood, RN) Resting Tone (Palpate): Relaxed (Caty Ledgerwood, RN) Monitor Mode: External US (Caty Ledgerwood, RN) FHR Baseline Rate : 125 (Caty Ledgerwood, RN) FHR Baseline Changes: No Baseline Change (Caty Ledgerwood, RN) Variability: Minimal - Undetectable to <=5 bpm (Caty Ledgerwood, RN) Accelerations: None (Caty Ledgerwood, RN) Decelerations: None (Caty Ledgerwood, RN) Pitocin (milliunit): Pitocin Remains (milliunits) @ 4 (Caty Ledgerwood, RN) Datetime: 01/08/2017 05:35 NBP Sys/Jimena/Mean (mmHg): 127 (QS system process) : 58 (QS system process) : 82 (QS system process) Pulse: 134 (QS system process) Respirations: 16 (Caty Ledgerwood, RN) LaborFlag: Antepartum (QS system process) Datetime: 01/08/2017 05:33 Dilatation (cm): 8.0 (Caty Ledgerwood, RN) Effacement (%): 90 (Caty Ledgerwood, RN) Station: 0 (Caty Ledgerwood, RN) Exam by: Dr Bella (Caty Ledgerwood, RN) Datetime: 01/08/2017 05:30 Monitor Mode: External; Palpation (Caty Ledgerwood, RN) Frequency (min): 1.5-3.5 (Caty Ledgerwood, RN) Quality: Strong (Caty Ledgerwood, RN) Duration (sec): 60-90 (Caty Ledgerwood, RN) Duration Criteria: Less than Two 120 Second Contractions (Caty Ledgerwood, RN) Pattern: Normal: <= 5 Contractions in 10 Minutes (Caty Ledgerwood, RN) Resting Tone (Palpate): Relaxed (Caty Ledgerwood, RN) Monitor Mode: External US (Caty Shanthigerhung, RN) FHR Baseline Rate : 125 (Caty Shanthigerwood, RN) FHR Baseline Changes: No Baseline Change (Caty Ledgerwood, RN) Variability: Moderate 6-25 bpm (Caty Ledgerwood, RN) Accelerations: 10X10 (Caty Ledgerwood, RN) Decelerations: None (Caty Ledgerwood, RN) Pitocin (milliunit): Pitocin Increased to (milliunits) @ 4 (Caty Ledgerwood, RN) Datetime: 01/08/2017 05:16 Dilatation (cm): 8.0 (Caty Ledgerwood, RN) Effacement (%): 90 (Caty Ledgerwood, RN) Station: 0 (Caty Ledgerwood, RN) Exam by: Adrianne Law RN (Caty Ledgerwood, RN) Datetime: 01/08/2017 05:15 Monitor Mode: External; Palpation (Caty Ledgerwood, RN) Frequency (min): 1.5-2.5 (Caty Ledgerwood, RN) Quality: Strong (Caty Ledgerwood, RN) Duration (sec): 70-90 (Caty Ledgerwood, RN) Duration Criteria: Less than Two 120 Second Contractions (Caty Ledgerwood, RN) Pattern: Normal: <= 5 Contractions in 10 Minutes (Caty Ledgerwood, RN) Resting Tone (Palpate): Relaxed (Caty Ledgerwood, RN) Monitor Mode: External US (Caty Ledgerwood, RN) FHR Baseline Rate : 135 (Caty Ledgerwood, RN) FHR Baseline Changes: No Baseline Change (Caty Ledgerwood, RN) Variability: Moderate 6-25 bpm (Caty Ledgerwood, RN) Accelerations: 15X15 (Caty Ledgerwood, RN) Decelerations: None (Caty Ledgerwood, RN) Datetime: 01/08/2017 05:03 NBP Sys/Jimena/Mean (mmHg): 114 (QS system process) : 67 (QS system process) : 84 (QS system process) Pulse: 102 (QS system process) LaborFlag: Antepartum (QS system process) Datetime: 01/08/2017 05:00 Monitor Mode: External; Palpation (Caty Ledgerwood, RN) Frequency (min): 1.5-4 (Caty Ledgerwood, RN) Quality: Strong (Caty Ledgerwood, RN) Duration (sec): 60-80 (Caty Ledgerwood, RN) Duration Criteria: Less than Two 120 Second Contractions (Caty Ledgerwood, RN) Pattern: Normal: <= 5 Contractions in 10 Minutes (Caty Ledgerwood, RN) Resting Tone (Palpate): Relaxed (Caty Ledgerwood, RN) Monitor Mode: External US (Caty Ledgerwood, RN) FHR Baseline Rate : 125 (Caty Ledgerwood, RN) FHR Baseline Changes: No Baseline Change (Caty Ledgerwood, RN) Variability: Moderate 6-25 bpm (Caty Ledgerwood, RN) Accelerations: 10X10 (Caty Ledgerwood, RN) Decelerations: None (Caty Ledgerwood, RN) Pitocin (milliunit): Pitocin Started (milliunits) @ 2 (Caty Ledgerwood, RN) Datetime: 01/08/2017 04:45 Monitor Mode: External; Palpation (Caty Ledgerwood, RN) Frequency (min): 1.5-3 (Caty Ledgerwood, RN) Quality: Strong (Caty Ledgerwood, RN) Duration (sec): 60-70 (Caty Ledgerwood, RN) Duration Criteria: Less than Two 120 Second Contractions (Caty Ledgerwood, RN) Pattern: Normal: <= 5 Contractions in 10 Minutes (Caty Ledgerwood, RN) Resting Tone (Palpate): Relaxed (Caty Ledgerwood, RN) Monitor Mode: External US (Caty Ledgerwood, RN) FHR Baseline Rate : 120 (Caty Ledgerwood, RN) FHR Baseline Changes: No Baseline Change (Cayt Ledgerwood, RN) Variability: Marked >25 bpm (Caty Ledgerwood, RN) Accelerations: None (Caty Ledgerwood, RN) Decelerations: None (Caty Ledgerwood, RN) Datetime: 01/08/2017 04:34 NBP Sys/Jimena/Mean (mmHg): 117 (QS system process) : 68 (QS system process) : 86 (QS system process) Pulse: 94 (QS system process) Respirations: 15 (Caty Ledgerwood, RN) LaborFlag: Antepartum (QS system process) Datetime: 01/08/2017 04:30 Monitor Mode: External; Palpation (Caty Ledgerwood, RN) Frequency (min): 2.5-4 (Caty Ledgerwood, RN) Quality: Strong (Caty Ledgerwood, RN) Duration Criteria: Less than Two 120 Second Contractions (Caty Ledgerwood, RN) Pattern: Normal: <= 5 Contractions in 10 Minutes (Caty Ledgerwood, RN) Resting Tone (Palpate): Relaxed (Caty Ledgerwood, RN) Monitor Mode: External US (Caty Ledgerwood, RN) Monitor Interventions for FHR: Ultrasound Adjusted (Caty Ledgerwood, RN) FHR Baseline Rate : 135 (Caty Ledgerwood, RN) FHR Baseline Changes: No Baseline Change (Caty Ledgerwood, RN) Variability: Moderate 6-25 bpm (Caty Ledgerwood, RN) Accelerations: 15X15 (Caty Ledgerwood, RN) Decelerations: None (Caty Ledgerwood, RN) Datetime: 01/08/2017 04:15 Monitor Mode: External; Palpation (Caty Ledgerwood, RN) Frequency (min): 2.5-3.5 (Caty Ledgerwood, RN) Quality: Strong (Caty Ledgerwood, RN) Duration (sec): 80-90 (Caty Ledgerwood, RN) Duration Criteria: Less than Two 120 Second Contractions (Caty Ledgerwood, RN) Pattern: Normal: <= 5 Contractions in 10 Minutes (Caty Ledgerwood, RN) Resting Tone (Palpate): Relaxed (Caty Ledgerwood, RN) Monitor Mode: External US (Caty Ledgerwood, RN) FHR Baseline Rate : 125 (Caty Ledgerwood, RN) FHR Baseline Changes: No Baseline Change (Caty Ledgerwood, RN) Variability: Moderate 6-25 bpm (Caty Ledgerwood, RN) Accelerations: 15X15 (Caty Ledgerwood, RN) Decelerations: None (Caty Ledgerwood, RN) Datetime: 01/08/2017 04:03 NBP Sys/Jimena/Mean (mmHg): 113 (QS system process) : 59 (QS system process) : 79 (QS system process) Pulse: 91 (QS system process) LaborFlag: Antepartum (QS system process) Datetime: 01/08/2017 04:00 NBP Sys/Jimena/Mean (mmHg): 105 (QS system process) : 56 (QS system process) : 76 (QS system process) Pulse: 86 (QS system process) Monitor Mode: External; Palpation (Caty Law, RN) Frequency (min): 2.5 (Caty Law, RN) Quality: Strong (Caty Law, RN) Duration (sec): 60-70 (Caty Law, RN) Duration Criteria: Less than Two 120 Second Contractions (Caty Law, RN) Pattern: Normal: <= 5 Contractions in 10 Minutes (Caty Law, RN) Resting Tone (Palpate): Relaxed (Caty Law, RN) Monitor Mode: External US (Caty Law, RN) FHR Baseline Rate : 135 (Caty Law, RN) FHR Baseline Changes: No Baseline Change (Caty Law, RN) Variability: Moderate 6-25 bpm (Caty Makigerhung, RN) Accelerations: None (Caty Makigerhung, RN) Decelerations: None (Caty Makigerhung, RN) LaborFlag: Antepartum (QS system process) Datetime: 01/08/2017 03:58 Dilatation (cm): 8.0 (Caty Law, RN) Effacement (%): 90 (Caty Law, RN) Station: 0 (Caty Law, RN) Exam by: Adrianne law RN (Caty Law, RN) Vaginal Exam Comments: forebag (Caty Law, RN) Datetime: 01/08/2017 03:55 NBP Sys/Jimena/Mean (mmHg): 102 (QS system process) : 55 (QS system process) : 70 (QS system process) Pulse: 94 (QS system process) LaborFlag: Antepartum (QS system process) Datetime: 01/08/2017 03:54 NBP Sys/Jimena/Mean (mmHg): 99 (QS system process) : 51 (QS system process) : 72 (QS system process) Pulse: 104 (QS system process) LaborFlag: Antepartum (QS system process) Datetime: 01/08/2017 03:53 NBP Sys/Jimena/Mean (mmHg): 120 (QS system process) : 58 (QS system process) : 83 (QS system process) Pulse: 96 (QS system process) LaborFlag: Antepartum (QS system process) Datetime: 01/08/2017 03:52 NBP Sys/Jimena/Mean (mmHg): 99 (QS system process) : 51 (QS system process) : 71 (QS system process) Pulse: 97 (QS system process) LaborFlag: Antepartum (QS system process) Datetime: 01/08/2017 03:51 NBP Sys/Jimena/Mean (mmHg): 103 (QS system process) NBP Sys/Jimena/Mean (mmHg): 92 (QS system process) : 58 (QS system process) : 50 (QS system process) : 77 (QS system process) : 68 (QS system process) Pulse: 93 (QS system process) Pulse: 101 (QS system process) LaborFlag: Antepartum (QS system process) Datetime: 01/08/2017 03:50 NBP Sys/Jimena/Mean (mmHg): 87 (QS system process) : 43 (QS system process) : 62 (QS system process) Pulse: 116 (QS system process) LaborFlag: Antepartum (QS system process) Datetime: 01/08/2017 03:49 NBP Sys/Jimena/Mean (mmHg): 114 (QS system process) : 55 (QS system process) : 78 (QS system process) Pulse: 93 (QS system process) LaborFlag: Antepartum (QS system process) Datetime: 01/08/2017 03:48 NBP Sys/Jimena/Mean (mmHg): 108 (QS system process) : 52 (QS system process) : 75 (QS system process) Pulse: 108 (QS system process) LaborFlag: Antepartum (QS system process) Datetime: 01/08/2017 03:47 NBP Sys/Jimena/Mean (mmHg): 107 (QS system process) : 51 (QS system process) : 73 (QS system process) Pulse: 112 (QS system process) I/O Interventions: Piper Cath Inserted (Caty Law RN) Patient Care Comments: 14 F by O ani RN (Caty Law RN) LaborFlag: Antepartum (QS system process) Datetime: 01/08/2017 03:46 NBP Sys/Jimena/Mean (mmHg): 113 (QS system process) : 55 (QS system process) : 79 (QS system process) Pulse: 96 (QS system process) LaborFlag: Antepartum (QS system process) Datetime: 01/08/2017 03:45 NBP Sys/Jimena/Mean (mmHg): 106 (QS system process) : 55 (QS system process) : 79 (QS system process) Pulse: 115 (QS system process) LaborFlag: Antepartum (QS system process) Datetime: 01/08/2017 03:44 NBP Sys/Jimena/Mean (mmHg): 106 (QS system process) : 53 (QS system process) : 76 (QS system process) Pulse: 111 (QS system process) LaborFlag: Antepartum (QS system process) Datetime: 01/08/2017 03:43 NBP Sys/Jimena/Mean (mmHg): 104 (QS system process) : 51 (QS system process) : 73 (QS system process) Pulse: 115 (QS system process) LaborFlag: Antepartum (QS system process) Datetime: 01/08/2017 03:42 NBP Sys/Jimena/Mean (mmHg): 112 (QS system process) : 55 (QS system process) : 79 (QS system process) Pulse: 121 (QS system process) LaborFlag: Antepartum (QS system process) Datetime: 01/08/2017 03:40 NBP Sys/Jimena/Mean (mmHg): 119 (QS system process) : 56 (QS system process) : 80 (QS system process) Pulse: 115 (QS system process) LaborFlag: Antepartum (QS system process) Datetime: 01/08/2017 03:39 Epidural Procedure Other: Pump Started (Caty Ledgerwood, RN) Datetime: 01/08/2017 03:38 NBP Sys/Jimena/Mean (mmHg): 121 (QS system process) : 56 (QS system process) : 80 (QS system process) Pulse: 110 (QS system process) LaborFlag: Antepartum (QS system process) Datetime: 01/08/2017 03:37 NBP Sys/Jimena/Mean (mmHg): 119 (QS system process) : 66 (QS system process) : 87 (QS system process) Pulse: 103 (QS system process) LaborFlag: Antepartum (QS system process) Datetime: 01/08/2017 03:36 NBP Sys/Jimena/Mean (mmHg): 121 (QS system process) : 70 (QS system process) : 90 (QS system process) Pulse: 102 (QS system process) LaborFlag: Antepartum (QS system process) Datetime: 01/08/2017 03:35 NBP Sys/Jimena/Mean (mmHg): 123 (QS system process) : 70 (QS system process) : 90 (QS system process) Pulse: 95 (QS system process) LaborFlag: Antepartum (QS system process) Datetime: 01/08/2017 03:34 Epidural Procedure: Cath Placed (Caty Law RN) Epidural Procedure: Test Dose (Caty Law, JOSE) Datetime: 01/08/2017 03:30 Monitor Mode: External; Palpation (Caty Law RN) Monitor Interventions for UA: [place] Adjusted (Caty Law RN) Frequency (min): UTD (Caty Ledgerwood, RN) Quality: Strong (Caty Ledgerwood, RN) Duration Criteria: Less than Two 120 Second Contractions (Caty Ledgerwood, RN) Pattern: Normal: <= 5 Contractions in 10 Minutes (Caty Ledgerwood, RN) Resting Tone (Palpate): Relaxed (Caty Ledgerwood, RN) Contraction Comments: due to pt's position (Caty Makigerhung, RN) Monitor Mode: External US (Caty Law, RN) FHR Baseline Rate : 135 (Caty Shanthigerwood, RN) FHR Baseline Changes: No Baseline Change (Caty Ledgerwood, RN) Variability: Moderate 6-25 bpm (Caty Ledgerwood, RN) Accelerations: 10X10 (Caty Ledgerwood, RN) Decelerations: None (Caty Ledgerwood, RN) Datetime: 01/08/2017 03:28 Communication: Provider at Bedside (Caty Law, RN) Communication Comments: Dr Morton at bedside (Caty Law, RN) Datetime: 01/08/2017 03:27 Procedure Verify: Correct Patient Identity; Correct Side and Site are Marked; Accurate Procedure Consent Form; Correct Patient Position (Caty Perdomowood, RN) Datetime: 01/08/2017 03:26 NBP Sys/Jimena/Mean (mmHg): 143 (QS system process) : 67 (QS system process) : 97 (QS system process) Pulse: 111 (QS system process) LaborFlag: Antepartum (QS system process) Datetime: 01/08/2017 03:25 Procedure Verify: Correct Patient Identity; Correct Side and Site are Marked; Accurate Procedure Consent Form; Correct Patient Position (Caty Perdomowood, RN) Datetime: 01/08/2017 03:23 Procedure Verify: Correct Patient Identity; Correct Side and Site are Marked; Accurate Procedure Consent Form; Correct Patient Position (Caty Ledgerwood, RN) Datetime: 01/08/2017 03:21 Patient Care Comments: pt requests an Epidural (Caty Ledgerwood, RN) Datetime: 01/08/2017 03:15 Monitor Mode: External; Palpation (Caty Law, RN) Frequency (min): 1.5-3 (Caty Shanthigerhung, RN) Quality: Strong (Caty Ledgerwood, RN) Duration (sec): 60-80 (Caty Ledgerwood, RN) Duration Criteria: Less than Two 120 Second Contractions (Caty Ledgerwood, RN) Pattern: Normal: <= 5 Contractions in 10 Minutes (Caty Ledgerwood, RN) Resting Tone (Palpate): Relaxed (Caty Shanthigerhung, RN) Monitor Mode: External US (Caty Law, RN) FHR Baseline Rate : 140 (Caty Law, RN) FHR Baseline Changes: No Baseline Change (Caty Ledgerwood, RN) Variability: Moderate 6-25 bpm (Caty Ledgerwood, RN) Accelerations: 10X10 (Caty Ledgerwood, RN) Decelerations: None (Caty Ledgerwood, RN) Datetime: 01/08/2017 03:00 Monitor Mode: External; Palpation (Caty Ledgerwood, RN) Frequency (min): 1.5-2.5 (Caty Ledgerwood, RN) Quality: Strong (Caty Ledgerwood, RN) Duration (sec): 50-70 (Caty Ledgerwood, RN) Duration Criteria: Less than Two 120 Second Contractions (Caty Ledgerwood, RN) Pattern: Normal: <= 5 Contractions in 10 Minutes (Caty Ledgerwood, RN) Resting Tone (Palpate): Relaxed (Caty Ledgerwood, RN) Monitor Mode: External US (Caty Ledgerwood, RN) FHR Baseline Rate : 130 (Caty Ledgerwood, RN) FHR Baseline Changes: No Baseline Change (Caty Ledgerwood, RN) Variability: Moderate 6-25 bpm (Caty Ledgerwood, RN) Accelerations: None (Caty Ledgerwood, RN) Decelerations: None (Caty Ledgerwood, RN) Datetime: 01/08/2017 02:57 NBP Sys/Jimena/Mean (mmHg): 96 (QS system process) : 55 (QS system process) : 73 (QS system process) Pulse: 76 (QS system process) LaborFlag: Antepartum (QS system process) Datetime: 01/08/2017 02:49 Patient Position/Activity: Trendelenburg (Caty Ledgerwood, RN) Datetime: 01/08/2017 02:45 Monitor Mode: External; Palpation (Caty Ledgerwood, RN) Frequency (min): 1.5-2.5 (Caty Ledgerwood, RN) Quality: Moderate to Strong (Caty Ledgerwood, RN) Duration (sec): 60-80 (Caty Ledgerwood, RN) Duration Criteria: Less than Two 120 Second Contractions (Caty Ledgerwood, RN) Pattern: Normal: <= 5 Contractions in 10 Minutes (Caty Ledgerwood, RN) Resting Tone (Palpate): Relaxed (Caty Ledgerwood, RN) Monitor Mode: External US (Caty Ledgerwood, RN) FHR Baseline Rate : 135 (Caty Ledgerwood, RN) FHR Baseline Changes: No Baseline Change (Caty Ledgerwood, RN) Variability: Moderate 6-25 bpm (Caty Ledgerwood, RN) Accelerations: 15X15 (Caty Ledgerwood, RN) Decelerations: None (Caty Ledgerwood, RN) Datetime: 01/08/2017 02:43 Dilatation (cm): 8.0 (Caty Ledgerwood, RN) Effacement (%): 90 (Caty Ledgerwood, RN) Station: 0 (Caty Ledgerwood, RN) Exam by: Adrianne Law RN (Caty Ledgerwood, RN) Datetime: 01/08/2017 02:42 Patient Position/Activity: Right Lateral (Caty Ledgerwood, RN) Datetime: 01/08/2017 02:30 Monitor Mode: External; Palpation (Caty Ledgerwood, RN) Frequency (min): 1.5-3 (Caty Ledgerwood, RN) Quality: Strong (Caty Ledgerwood, RN) Duration (sec): 60-90 (Caty Ledgerwood, RN) Duration Criteria: Less than Two 120 Second Contractions (Caty Ledgerwood, RN) Pattern: Normal: <= 5 Contractions in 10 Minutes (Caty Ledgerwood, RN) Resting Tone (Palpate): Relaxed (Caty Ledgerwood, RN) Monitor Mode: External US (Caty Ledgerwood, RN) FHR Baseline Rate : 145 (Caty Ledgerwood, RN) FHR Baseline Changes: No Baseline Change (Caty Ledgerwood, RN) Variability: Moderate 6-25 bpm (Caty Ledgerwood, RN) Accelerations: None (Caty Ledgerwood, RN) Decelerations: None (Caty Ledgerwood, RN) Datetime: 01/08/2017 02:27 NBP Sys/Jimena/Mean (mmHg): 117 (QS system process) : 71 (QS system process) : 87 (QS system process) Pulse: 109 (QS system process) LaborFlag: Antepartum (QS system process) Datetime: 01/08/2017 02:15 Monitor Mode: External; Palpation (Caty Ledgerwood, RN) Frequency (min): 1.5-2.5 (Caty Ledgerwood, RN) Quality: Strong (Caty Ledgerwood, RN) Duration (sec): 60-80 (Caty Ledgerwood, RN) Duration Criteria: Less than Two 120 Second Contractions (Caty Ledgerwood, RN) Pattern: Normal: <= 5 Contractions in 10 Minutes (Caty Ledgerwood, RN) Resting Tone (Palpate): Relaxed (Caty Ledgerwood, RN) Monitor Mode: External US (Caty Ledgerwood, RN) FHR Baseline Rate : 140 (Caty Ledgerwood, RN) FHR Baseline Changes: No Baseline Change (Caty Ledgerwood, RN) Variability: Moderate 6-25 bpm (Caty Ledgerwood, RN) Accelerations: 10X10 (Caty Ledgerwood, RN) Decelerations: Variable (Caty Ledgerwood, RN) Datetime: 01/08/2017 02:00 Monitor Mode: External; Palpation (Caty Ledgerwood, RN) Frequency (min): 1.5-3.5 (Caty Ledgerwood, RN) Quality: Strong (Caty Ledgerwood, RN) Duration (sec): 60-80 (Caty Ledgerwood, RN) Duration Criteria: Less than Two 120 Second Contractions (Caty Ledgerwood, RN) Pattern: Normal: <= 5 Contractions in 10 Minutes (Caty Ledgerwood, RN) Resting Tone (Palpate): Relaxed (Caty Ledgerwood, RN) Monitor Mode: External US (Caty Ledgerwood, RN) FHR Baseline Rate : 135 (Caty Ledgerwood, RN) FHR Baseline Changes: No Baseline Change (Caty Ledgerwood, RN) Variability: Moderate 6-25 bpm (Caty Ledgerwood, RN) Accelerations: None (Caty Ledgerwood, RN) Decelerations: Early (Caty Ledgerwood, RN) Datetime: 01/08/2017 01:57 NBP Sys/Jimena/Mean (mmHg): 119 (QS system process) : 71 (QS system process) : 90 (QS system process) Pulse: 102 (QS system process) LaborFlag: Antepartum (QS system process) Datetime: 01/08/2017 01:45 Monitor Mode: External; Palpation (Caty Ledgerwood, RN) Frequency (min): 1.5-2.5 (Caty Ledgerwood, RN) Quality: Strong (Caty Ledgerwood, RN) Duration (sec): 60-80 (Caty Ledgerwood, RN) Duration Criteria: Less than Two 120 Second Contractions (Caty Ledgerwood, RN) Pattern: Normal: <= 5 Contractions in 10 Minutes (Caty Ledgerwood, RN) Resting Tone (Palpate): Relaxed (Caty Ledgerwood, RN) Monitor Mode: External US (Caty Ledgerwood, RN) FHR Baseline Rate : 135 (Caty Ledgerwood, RN) FHR Baseline Changes: No Baseline Change (Caty Ledgerwood, RN) Variability: Moderate 6-25 bpm (Caty Ledgerwood, RN) Accelerations: 10X10 (Caty Ledgerwood, RN) Decelerations: None (Caty Ledgerwood, RN) Datetime: 01/08/2017 01:30 Monitor Mode: External; Palpation (Caty Ledgerwood, RN) Frequency (min): 1.5-2.5 (Caty Ledgerwood, RN) Quality: Strong (Caty Ledgerwood, RN) Duration (sec): 70-80 (Caty Ledgerwood, RN) Duration Criteria: Less than Two 120 Second Contractions (Caty Ledgerwood, RN) Pattern: Normal: <= 5 Contractions in 10 Minutes (Caty Ledgerwood, RN) Resting Tone (Palpate): Relaxed (Caty Ledgerwood, RN) Monitor Mode: External US (Caty Ledgerwood, RN) FHR Baseline Rate : 135 (Caty Ledgerwood, RN) FHR Baseline Changes: No Baseline Change (Caty Ledgerwood, RN) Variability: Moderate 6-25 bpm (Caty Ledgerwood, RN) Accelerations: None (Caty Ledgerwood, RN) Decelerations: None (Caty Ledgerwood, RN) Datetime: 01/08/2017 01:27 NBP Sys/Jimena/Mean (mmHg): 124 (QS system process) : 68 (QS system process) : 92 (QS system process) Pulse: 113 (QS system process) LaborFlag: Antepartum (QS system process) Datetime: 01/08/2017 01:26 Comfort Measures: Hot/Cold Pack (Caty Ledgerwood, RN) Datetime: 01/08/2017 01:23 Patient Position/Activity: Birthing Ball (Caty Ledgerwood, RN) Datetime: 01/08/2017 01:15 Monitor Mode: External; Palpation (Caty Ledgerwood, RN) Frequency (min): 1.5-2.5 (Caty Ledgerwood, RN) Quality: Strong (Caty Ledgerwood, RN) Duration (sec): 50-90 (Caty Ledgerwood, RN) Duration Criteria: Less than Two 120 Second Contractions (Caty Ledgerwood, RN) Pattern: Normal: <= 5 Contractions in 10 Minutes (Caty Ledgerwood, RN) Resting Tone (Palpate): Relaxed (Caty Ledgerwood, RN) Monitor Mode: External US (Caty Ledgerwood, RN) FHR Baseline Rate : 135 (Caty Ledgerwood, RN) FHR Baseline Changes: No Baseline Change (Caty Ledgerwood, RN) Variability: Moderate 6-25 bpm (Caty Ledgerwood, RN) Accelerations: 10X10 (Caty Ledgerwood, RN) Decelerations: None (Caty Ledgerwood, RN) Datetime: 01/08/2017 01:00 Monitor Mode: External; Palpation (Caty Ledgerwood, RN) Frequency (min): 1.5-2.5 (Caty Ledgerwood, RN) Quality: Strong (Caty Ledgerwood, RN) Duration (sec): 50-90 (Caty Ledgerwood, RN) Duration Criteria: Less than Two 120 Second Contractions (Cayt Ledgerwood, RN) Pattern: Normal: <= 5 Contractions in 10 Minutes (Caty Ledgerwood, RN) Resting Tone (Palpate): Relaxed (Caty Ledgerwood, RN) Monitor Mode: External US (Caty Ledgerwood, RN) FHR Baseline Rate : 135 (Caty Ledgerwood, RN) FHR Baseline Changes: No Baseline Change (Caty Ledgerwood, RN) Variability: Moderate 6-25 bpm (Caty Ledgerwood, RN) Accelerations: 10X10 (Caty Ledgerwood, RN) Decelerations: Early (Caty Ledgerwood, RN) Datetime: 01/08/2017 00:56 NBP Sys/Jimena/Mean (mmHg): 129 (QS system process) : 75 (QS system process) : 95 (QS system process) Pulse: 113 (QS system process) Respirations: 15 (Caty Ledgerwood, RN) Patient Position/Activity: High Fowlers (Caty Ledgerwood, RN) LaborFlag: Antepartum (QS system process) Datetime: 01/08/2017 00:47 Membrane Status: Ruptured (Caty Makigerwood, RN) Membranes Rupture Method: Spontaneous (Catyroney Makigerwood, RN) Amniotic Fluid Color: Clear (Caty Ledgerwood, RN) Amniotic Fluid Amount: Small (Caty Ledgerwood, RN) Amniotic Fluid Odor: Normal (Caty Ledgerwood, RN) Datetime: 01/08/2017 00:45 Monitor Mode: External; Palpation (Caty Makigerwood, RN) Frequency (min): 1.5-2.5 (Caty Ledgerwood, RN) Quality: Strong (Caty Ledgerwood, RN) Duration (sec): 60-70 (Caty Ledgerwood, RN) Duration Criteria: Less than Two 120 Second Contractions (Caty Ledgerwood, RN) Pattern: Normal: <= 5 Contractions in 10 Minutes (Caty Ledgerwood, RN) Resting Tone (Palpate): Relaxed (Caty Ledgerwood, RN) Monitor Mode: External US (Caty Ledgerwood, RN) FHR Baseline Rate : 135 (Caty Ledgerwood, RN) FHR Baseline Changes: No Baseline Change (Caty Ledgerwood, RN) Variability: Moderate 6-25 bpm (Caty Ledgerwood, RN) Accelerations: 15X15 (Caty Ledgerwood, RN) Decelerations: None (Caty Ledgerwood, RN) Datetime: 01/08/2017 00:30 Monitor Mode: External; Palpation (Caty Ledgerwood, RN) Frequency (min): 1.5-2.5 (Caty Ledgerwood, RN) Quality: Strong (Caty Ledgerwood, RN) Duration (sec): 60-90 (Caty Ledgerwood, RN) Duration Criteria: Less than Two 120 Second Contractions (Caty Ledgerwood, RN) Pattern: Normal: <= 5 Contractions in 10 Minutes (Caty Ledgerwood, RN) Resting Tone (Palpate): Relaxed (Caty Ledgerwood, RN) Monitor Mode: External US (Caty Ledgerwood, RN) FHR Baseline Rate : 125 (Caty Ledgerwood, RN) FHR Baseline Changes: No Baseline Change (Caty Ledgerwood, RN) Variability: Moderate 6-25 bpm (Caty Ledgerwood, RN) Accelerations: 10X10 (Caty Ledgerwood, RN) Decelerations: None (Caty Ledgerwood, RN) Datetime: 01/08/2017 00:27 NBP Sys/Jimena/Mean (mmHg): 118 (QS system process) : 57 (QS system process) : 81 (QS system process) Pulse: 115 (QS system process) LaborFlag: Antepartum (QS system process) Datetime: 01/08/2017 00:25 Pain Location: Back (Caty Law RN) Pain Coping: Crying (Caty Law RN) Comfort Measures: Back Rub Given (Caty Law RN) Communication: RN at Bedside (Caty Law RN) Communication Comments: pt has been asked again if she would like to have an Epidural, pt. denied Epidural. (Caty Law RN) LaborFlag: Antepartum (QS system process) Datetime: 01/08/2017 00:15 Monitor Mode: External; Palpation (Caty Ledgerwood, RN) Frequency (min): 1.5-2 (Caty Ledgerwood, RN) Quality: Strong (Caty Ledgerwood, RN) Duration (sec): 60-80 (Caty Ledgerwood, RN) Duration Criteria: Less than Two 120 Second Contractions (Caty Ledgerwood, RN) Pattern: Normal: <= 5 Contractions in 10 Minutes (Caty Ledgerwood, RN) Resting Tone (Palpate): Relaxed (Caty Ledgerwood, RN) Monitor Mode: External US (Caty Ledgerwood, RN) FHR Baseline Rate : 125 (Caty Ledgerwood, RN) FHR Baseline Changes: No Baseline Change (Caty Ledgerwood, RN) Variability: Moderate 6-25 bpm (Caty Ledgerwood, RN) Accelerations: None (Caty Ledgerwood, RN) Decelerations: None (Caty Ledgerwood, RN) Datetime: 01/08/2017 00:09 Patient Position/Activity: Left Tilt (Caty Ledgerwood, RN) Communication: RN at Bedside (Caty Ledgerwood, RN) Datetime: 01/08/2017 00:00 Monitor Mode: External; Palpation (Caty Ledgerwood, RN) Frequency (min): 1.5-3 (Caty Ledgerwood, RN) Quality: Strong (Caty Ledgerwood, RN) Duration (sec): 60-90 (Caty Ledgerwood, RN) Duration Criteria: Less than Two 120 Second Contractions (Caty Ledgerwood, RN) Pattern: Normal: <= 5 Contractions in 10 Minutes (Caty Ledgerwood, RN) Resting Tone (Palpate): Relaxed (Caty Ledgerwood, RN) Monitor Mode: External US (Caty Ledgerwood, RN) FHR Baseline Rate : 125 (Caty Ledgerwood, RN) FHR Baseline Changes: No Baseline Change (Caty Ledgerwood, RN) Variability: Moderate 6-25 bpm (Caty Ledgerwood, RN) Accelerations: None (Caty Ledgerwood, RN) Decelerations: None (Caty Ledgerwood, RN) Datetime: 01/07/2017 23:59 Dilatation (cm): 9.0 (Caty Ledgerwood, RN) Effacement (%): 90 (Caty Ledgerwood, RN) Station: -1 (Caty Ledgerwood, RN) Exam by: Adrianne law RN (Caty Ledgerwood, RN) Membrane Status: Bulging (Caty Ledgerwood, RN) Datetime: 01/07/2017 23:57 NBP Sys/Jimena/Mean (mmHg): 108 (QS system process) : 69 (QS system process) : 82 (QS system process) Pulse: 88 (QS system process) LaborFlag: Antepartum (QS system process) Datetime: 01/07/2017 23:45 Monitor Mode: External; Palpation (Caty Ledgerwood, RN) Frequency (min): 1.5-2.5 (Caty Ledgerwood, RN) Quality: Strong (Caty Ledgerwood, RN) Duration (sec): 60-90 (Caty Ledgerwood, RN) Duration Criteria: Less than Two 120 Second Contractions (Caty Ledgerwood, RN) Pattern: Normal: <= 5 Contractions in 10 Minutes (Caty Ledgerwood, RN) Resting Tone (Palpate): Relaxed (Caty Ledgerwood, RN) Monitor Mode: External US (Caty Ledgerwood, RN) FHR Baseline Rate : 135 (Caty Ledgerwood, RN) FHR Baseline Changes: No Baseline Change (Caty Ledgerwood, RN) Variability: Moderate 6-25 bpm (Caty Ledgerwood, RN) Accelerations: None (Caty Ledgerwood, RN) Decelerations: None (Caty Ledgerwood, RN) Datetime: 01/07/2017 23:30 Monitor Mode: External; Palpation (Caty Ledgerwood, RN) Frequency (min): 1.5-2 (Caty Ledgerwood, RN) Quality: Strong (Caty Ledgerwood, RN) Duration (sec): 60-70 (Caty Ledgerwood, RN) Duration Criteria: Less than Two 120 Second Contractions (Caty Ledgerwood, RN) Pattern: Normal: <= 5 Contractions in 10 Minutes (Caty Ledgerwood, RN) Resting Tone (Palpate): Relaxed (Caty Ledgerwood, RN) Monitor Mode: External US (Caty Ledgerwood, RN) FHR Baseline Rate : 140 (Caty Ledgerwood, RN) FHR Baseline Changes: No Baseline Change (Caty Ledgerwood, RN) Variability: Moderate 6-25 bpm (Caty Ledgerwood, RN) Accelerations: None (Caty Ledgerwood, RN) Decelerations: None (Caty Ledgerwood, RN) Datetime: 01/07/2017 23:26 NBP Sys/Jimena/Mean (mmHg): 124 (QS system process) : 81 (QS system process) : 97 (QS system process) Pulse: 120 (QS system process) Respirations: 15 (Caty Law, RN) LaborFlag: Antepartum (QS system process) Datetime: 01/07/2017 23:24 Procedures: Consents Signed (Caty Ledgerwood, RN) Datetime: 01/07/2017 23:22 Procedures: Labs Drawn (Caty Ledgerwood, RN) Datetime: 01/07/2017 23:15 Monitor Mode: External; Palpation (Caty Law, JOSE) Frequency (min): 1.5-3 (Caty Law, JOSE) Quality: Strong (Caty Law, RN) Duration (sec): 60-80 (Caty Law, RN) Duration Criteria: Less than Two 120 Second Contractions (Caty Law, RN) Pattern: Normal: <= 5 Contractions in 10 Minutes (Caty Law RN) Resting Tone (Palpate): Relaxed (Caty Law, RN) Monitor Mode: External US (Caty Law, RN) FHR Baseline Rate : 145 (Caty Law, RN) FHR Baseline Changes: No Baseline Change (Caty Law, JOSE) Variability: Moderate 6-25 bpm (Caty Law, RN) Accelerations: None (Caty Law, RN) Decelerations: None (Caty Law, RN) IV/Blood Work: IV Started; IV Bolus Started (Elli Medina RN) IV/Blood Work: IV Started; New IV Bag Hung (Caty Law, JOSE) Patient Care Comments: 18 G Left Hand (Caty Law, JOSE) Datetime: 01/07/2017 23:11 Pain Scale: 5 (Annotations: 5 out 5 during contractions) (Caty Law, JOSE) Pain Presence: Intermittent (Caty Law, JOSE) Pain Type: Contraction (Caty Law, JOSE) Pain Location: Abdomen (Caty Law, RN) Pain Coping: Breathing Through Contractions (Caty Law RN) Vaginal Bleeding: None (Caty Law, JOSE) Level of Consciousness: Fully Conscious (Caty Law RN) DTR's/Clonus: DTRs 2+; No Clonus (Caty Law RN) Headache: Denies (Caty Law RN) Breath Sounds, Left: Clear and Equal (Caty Law RN) Breath Sounds, Right: Clear and Equal (Caty Law RN) RUQ Epigastric Pain: Denies (Caty Law RN) Instructional Method: Demo; Verbal; Patient Instructed (Caty Law RN) Plan of Care: Plan of Care Discussed (Caty Law RN) Unit Routine: [place] to Room; Call Porter; Bed; Visiting Policy; Handwashing; Monitoring; Safety/Fall Risk Prevention (Caty Law RN) LaborFlag: Antepartum (QS system process) Datetime: 01/07/2017 23:04 Dilatation (cm): 8.0 (Caty Law RN) Effacement (%): 90 (Caty Law RN) Station: -1 (Caty Law RN) Exam by: Adrianne Law RN (Caty Law, JOSE) Membrane Status: Bulging (Caty Law RN) Patient Position/Activity: Right Tilt (Caty Law RN)
--- NOTE | 2017-01-08 08:31 | L&D Progress Notes ---
PROGRESS NOTES Datetime Report Generated by CPN: 01/08/2017 08:31 PROGRESS NOTE Impression: Normal Progression of Labor; Reassuring Heart Rate Plan: Continue Present Management; Augmentation Vital Signs : Reviewed; Within Normal Limits Comment: pt in knee chest, comfortable, not feeling uc's. UC's q 2-3, Cat 1 strip will continue to monitor, anticipate VAGINAL EXAM Dilatation: 8 Effacement: 90 Station: -1 MEMBRANES Membranes: Intact FETUS A : 40.2 SIGNATURE SIGNATURE: [id number] SIGNATURE: [id number] SIGNATURE: [id number] SIGNATURE: [id number] Assignment: Magalie Hector MD Signature: with User ID: [email or web address] : with User ID: [email or web address]
--- NOTE | 2017-01-08 10:01 | L&D Flow Sheet ---
LD Flowsheet Datetime Report Generated by CPN: 01/08/2017 10:00 Datetime: 01/08/2017 09:45 Monitor Mode: External (Danica Brown RN) Frequency (min): 1-3 (Danica Brown, RN) Quality: Moderate to Strong (Danica Brown, RN) Duration (sec): 60-100 (Danica Brown RN) Resting Tone (Palpate): Relaxed (Danica Brown, RN) Monitor Mode: External US (Danica Brown, RN) FHR Baseline Rate : 135 (Danica Brown, RN) FHR Baseline Changes: No Baseline Change (Danica Brown, RN) Variability: Moderate 6-25 bpm (Danica Brown, RN) Accelerations: 15X15 (Danica Dalalka, RN) Decelerations: None (Danica Brown, RN) Pitocin (milliunit): Pitocin Increased to (milliunits) @ (Annotations: 6) (Danica Marhefka, RN) Datetime: 01/08/2017 09:36 Patient Position/Activity: Right Lateral; Peanut Ball (Danica Marhefka, RN) Datetime: 01/08/2017 09:35 NBP Sys/Jimena/Mean (mmHg): 138 (QS system process) : 63 (QS system process) : 91 (QS system process) Pulse: 118 (QS system process) LaborFlag: Antepartum (QS system process) Datetime: 01/08/2017 09:30 Monitor Mode: External (Danica Marhefka, RN) Frequency (min): 1-4 (Danica Marhefka, RN) Quality: Moderate to Strong (Danica Marhefka, RN) Duration (sec): 60-100 (Danica Marhefka, RN) Resting Tone (Palpate): Relaxed (Danica Marhefka, RN) Monitor Mode: External US (Danica Marhefka, RN) FHR Baseline Rate : 145 (Danica Marhefka, RN) FHR Baseline Changes: No Baseline Change (Danica Marhefka, RN) Variability: Moderate 6-25 bpm (Danica Marhefka, RN) Accelerations: 15X15 (Danica Marhefka, RN) Decelerations: Early (Danica Marhefka, RN) Pitocin (milliunit): Pitocin Increased to (milliunits) @ (Annotations: 4) (Danica Marhefka, RN) Datetime: 01/08/2017 09:15 Monitor Mode: External; Palpation (Danica Marhefka, RN) Frequency (min): 1-4 (Danica Marhefka, RN) Quality: Moderate to Strong (Danica Marhefka, RN) Duration (sec): 60-100 (Danica Marhefka, RN) Resting Tone (Palpate): Relaxed (Danica Marhefka, RN) Monitor Mode: External US (Danica Marhefka, RN) FHR Baseline Rate : 150 (Danica Marhefka, RN) FHR Baseline Changes: No Baseline Change (Danica Marhefka, RN) Variability: Moderate 6-25 bpm (Danica Marhefka, RN) Accelerations: None (Danica Brown RN) Decelerations: Early (Danica Brown RN) Pitocin (milliunit): Pitocin Remains (milliunits) @ (Annotations: 2) (Danica Brown, JOSE) Datetime: 01/08/2017 09:03 NBP Sys/Jimena/Mean (mmHg): 130 (QS system process) : 75 (QS system process) : 96 (QS system process) Pulse: 115 (QS system process) LaborFlag: Antepartum (QS system process) Datetime: 01/08/2017 09:00 Monitor Mode: External (Danica Brown RN) Frequency (min): 2-3 (Danica Brown RN) Quality: Moderate to Strong (Danica Brown RN) Duration (sec): 60-90 (Danica Brown RN) Resting Tone (Palpate): Relaxed (Danica Brown RN) Monitor Mode: External US (Danica Brown RN) FHR Baseline Rate : 130 (Danica Brown RN) FHR Baseline Changes: No Baseline Change (Danica Brown RN) Variability: Moderate 6-25 bpm (Danica Brown RN) Accelerations: 15X15 (Danica Brown RN) Decelerations: None (Danica Brown RN) Pitocin (milliunit): Pitocin Remains (milliunits) @ (Annotations: 2) (Danica Brown RN) Patient Position/Activity: High Fowlers (Danica Brown RN) Patient Care Comments: Pt sitting in chair position in bed (Danica Brown RN) Datetime: 01/08/2017 08:58 Comments: RN @ bedside adjusting ultrasound (Danica Brown RN) Datetime: 01/08/2017 08:48 Dilatation (cm): 9.0 (Danica Brown RN) Effacement (%): 100 (Danica Brown RN) Station: 0 (Danica Brown RN) Exam by: Hilaria Brown RN (Danica Brown RN) Membrane Status: Ruptured (Danica Brown RN) Membranes Rupture Method: Spontaneous (Danica Brown RN) Amniotic Fluid Color: Light Meconium (Danica Brown RN) Amniotic Fluid Amount: Large (Danica Brown RN) Datetime: 01/08/2017 08:45 Monitor Mode: External (Danica Brown RN) Frequency (min): 2-4 (Danica Brown RN) Quality: Moderate to Strong (Danica Brown RN) Duration (sec): 60-90 (Danica Brown RN) Resting Tone (Palpate): Relaxed (Danica Brown RN) Monitor Mode: External US (Danica Brown RN) FHR Baseline Rate : 130 (Danica Brown RN) FHR Baseline Changes: No Baseline Change (Danica Brown RN) Variability: Moderate 6-25 bpm (Danica Brown RN) Accelerations: None (Danica Brown RN) Decelerations: Early (Danica Brown RN) Pitocin (milliunit): Pitocin Remains (milliunits) @ (Annotations: 2) (Danica Brown RN) Datetime: 01/08/2017 08:34 NBP Sys/Jimena/Mean (mmHg): 120 (QS system process) : 68 (QS system process) : 87 (QS system process) Pulse: 116 (QS system process) LaborFlag: Antepartum (QS system process) Datetime: 01/08/2017 08:30 Monitor Mode: External (Danica Brown, RN) Frequency (min): 2-3 (Danica Brown, RN) Quality: Moderate to Strong (Danica Brown, RN) Duration (sec): 60-100 (Danica Brown, RN) Resting Tone (Palpate): Relaxed (Danica Brown, RN) Monitor Mode: External US (Danica Brown, RN) FHR Baseline Rate : 130 (Danica Mulugetaka, RN) FHR Baseline Changes: No Baseline Change (Danica Nigelfka, RN) Variability: Moderate 6-25 bpm (Danica Nigelfka, RN) Accelerations: 15X15 (Danica Nigelfka, RN) Decelerations: None (Danica Brown, RN) Pitocin (milliunit): Pitocin Remains (milliunits) @ (Annotations: 2) (Danica Mulugetaka, RN) Datetime: 01/08/2017 08:15 Monitor Mode: External (Danica Marhefka, RN) Frequency (min): 1-3 (Danica Marhefka, RN) Quality: Moderate to Strong (Danica Marhefka, RN) Duration (sec): 60-100 (Danica Marhefka, RN) Resting Tone (Palpate): Relaxed (Danica Marhefka, RN) Monitor Mode: External US (Danica Marhefka, RN) FHR Baseline Rate : 145 (Danica Marhefka, RN) FHR Baseline Changes: No Baseline Change (Danica Marhefka, RN) Variability: Moderate 6-25 bpm (Danica Marhefka, RN) Accelerations: None (Danica Marhefka, RN) Decelerations: None (Danica Marhefka, RN) Pitocin (milliunit): Pitocin Remains (milliunits) @ (Annotations: 2) (Danica Marhefka, RN) Datetime: 01/08/2017 08:03 NBP Sys/Jimena/Mean (mmHg): 131 (QS system process) : 77 (QS system process) : 95 (QS system process) Pulse: 118 (QS system process) Respirations: 15 (Danica Marhefka, RN) LaborFlag: Antepartum (QS system process) Datetime: 01/08/2017 08:02 Level of Consciousness: Fully Conscious (Danica Marhefka, RN) DTR's/Clonus: DTRs 2+; No Clonus (Danica Marhefka, RN) Headache: Denies (Danica Marhefka, RN) Breath Sounds, Left: Clear and Equal (Danica Marhefka, RN) Breath Sounds, Right: Clear and Equal (Danica Marhefka, RN) Nausea/Vomiting: Present (Annotations: Pt states she has been nauseous ) (Danica Marhefka, RN) RUQ Epigastric Pain: Denies (Danica Marhefka, RN) Datetime: 01/08/2017 08:00 Monitor Mode: External (Danica Marhefka, RN) Frequency (min): 1-2 (Danica Marhefka, RN) Quality: Moderate to Strong (Danica Marhefka, RN) Duration (sec): 60-90 (Danica Brown RN) Resting Tone (Palpate): Relaxed (Danica Brown RN) Monitor Mode: External US (Danica Brown RN) FHR Baseline Rate : 145 (Danica Brown RN) FHR Baseline Changes: No Baseline Change (Danica Brown RN) Variability: Moderate 6-25 bpm (Danica Brown RN) Accelerations: None (Danica Brown RN) Decelerations: None (Danica Brown RN) Pitocin (milliunit): Pitocin Remains (milliunits) @ (Annotations: 2) (Danica Brown RN)
[2017-01-08 11:39] LABS: ARTERIAL BLOOD BASE EXCESS -6.4 mmol/L; ARTERIAL BLOOD O2 SATURATION 25.5 % (94-98)
[2017-01-08] MEDS ORDERED: METHYLERGONOVINE MALEATE INJ/PF 0.2 MG/1 ML AMPULE ONE (11:42)
--- NOTE | 2017-01-08 12:00 | L&D Flow Sheet ---
LD Flowsheet Datetime Report Generated by CPN: 01/08/2017 12:00 Datetime: 01/08/2017 11:50 Stage of : Recovery (Danica Brown RN) Pain Scale: 2 (Danica Brown RN) Pain Presence: Constant (Danica Brown RN) Pain Type: Burning (Danica Brown RN) Pain Location: Perineum (Danica Brown RN) Pain Goal: 0 (Danica Brown RN) Pain Relief Measures: Comfort Measures (Danica Brown RN) Datetime: 01/08/2017 11:45 NBP Sys/Jimena/Mean (mmHg): 118 (QS system process) : 53 (QS system process) : 77 (QS system process) Pulse: 139 (QS system process) Datetime: 01/08/2017 11:44 NBP Sys/Jimena/Mean (mmHg): 143 (QS system process) : 73 (QS system process) : 100 (QS system process) Pulse: 137 (QS system process) Datetime: 01/08/2017 11:35 Stage of : Recovery (Danica Marhefka, RN) Datetime: 01/08/2017 11:17 Comments: viable baby girl (Danica Marhefka, RN) Datetime: 01/08/2017 11:16 Pulse: 170 (QS system process) SpO2 (%): 94 (QS system process) LaborFlag: Antepartum (QS system process) Datetime: 01/08/2017 11:13 Pulse: 133 (QS system process) SpO2 (%): 97 (QS system process) LaborFlag: Antepartum (QS system process) Datetime: 01/08/2017 11:12 Pitocin (milliunit): Pitocin Decreased to (milliunits) @ 3 (Danica Brown, RN) Patient Position/Activity: Left Tilt (Danica Brown, RN) Datetime: 01/08/2017 11:09 Pulse: 147 (QS system process) SpO2 (%): 93 (QS system process) LaborFlag: Antepartum (QS system process) Datetime: 01/08/2017 11:08 Pulse: 139 (QS system process) SpO2 (%): 96 (QS system process) LaborFlag: Antepartum (QS system process) Datetime: 01/08/2017 11:03 Pulse: 137 (QS system process) SpO2 (%): 98 (QS system process) LaborFlag: Antepartum (QS system process) Datetime: 01/08/2017 10:59 Pulse: 158 (QS system process) SpO2 (%): 94 (QS system process) LaborFlag: Antepartum (QS system process) Datetime: 01/08/2017 10:58 Pulse: 164 (QS system process) SpO2 (%): 94 (QS system process) LaborFlag: Antepartum (QS system process) Datetime: 01/08/2017 10:53 Pulse: 169 (QS system process) SpO2 (%): 95 (QS system process) LaborFlag: Antepartum (QS system process) Datetime: 01/08/2017 10:48 Pulse: 121 (QS system process) SpO2 (%): 98 (QS system process) Comments: RN and provider @ bedside continuously monitoring FHTs while pt pushing. (Danica Brown RN) LaborFlag: Antepartum (QS system process) Datetime: 01/08/2017 10:43 Pulse: 161 (QS system process) SpO2 (%): 97 (QS system process) LaborFlag: Antepartum (QS system process) Datetime: 01/08/2017 10:40 Pushing Position: Pushing with Contractions (Danica Marhefka, RN) Pushing Progress: Presenting Part Visible (Danica Marhefka, RN) Datetime: 01/08/2017 10:28 Stage 2 Comments: tug a war (Danica Marhefka, RN) Datetime: 01/08/2017 10:23 Pushing: Coached on Pushing; Urge to Push (Danica Marhefka, RN) Pushing Position: Pushing with Contractions (Danica Marhefka, RN) Datetime: 01/08/2017 10:15 Pitocin (milliunit): Pitocin Remains (milliunits) @ (Annotations: 6) (Danica Brown RN) I/O Interventions: Piper Discontinued (Danica Brown, JOSE) Datetime: 01/08/2017 10:10 Dilatation (cm): 10.0 (Danica Brown RN) Effacement (%): 100 (Danica Brown RN) Station: 2 (Danica Brown RN) Exam by: Hilaria Brown RN (Danica Brown, JOSE) Datetime: 01/08/2017 10:04 NBP Sys/Jimena/Mean (mmHg): 122 (QS system process) : 73 (QS system process) : 93 (QS system process) Pulse: 108 (QS system process) LaborFlag: Antepartum (QS system process) Datetime: 01/08/2017 10:00 Pitocin (milliunit): Pitocin Remains (milliunits) @ (Annotations: 6) (Danica Brown RN)
[2017-01-08] MEDS ORDERED: MAGNESIUM HYDROXIDE SUSP 30 ML UDCUP PO PRN (12:51)
[2017-01-08] MEDS ORDERED: OXYTOCIN/NORMAL SALINE 1,000 ML IV PRN (12:51)
[2017-01-08] MEDS ORDERED: PROMETHAZINE HCL 25 MG TABLET PO PRN (12:51)
[2017-01-08] MEDS ORDERED: DIPHENHYDRAMINE HCL 25 MG CAPSULE PO PRN (12:51)
[2017-01-08] MEDS ORDERED: PSEUDOEPHEDRINE HCL 30 MG TABLET PO PRN (12:51)
[2017-01-08] MEDS ORDERED: ACETAMINOPHEN WITH CODEINE #3 TABLET PO PRN ×2 (12:51)
[2017-01-08] MEDS ORDERED: GLYCERIN/WITCH HAZEL LEAF 1 EACH MED..PAD TP PRN (12:51)
[2017-01-08] MEDS ORDERED: NA PHOS,M-B/NA PHOS,DI-BA (ADULT) 133 ML ENEMA PR PRN (12:51)
[2017-01-08] MEDS ORDERED: PROMETHAZINE HCL 25 MG SUPP.RECT PR PRN (12:51)
[2017-01-08] MEDS ORDERED: ACETAMINOPHEN 650 MG SUPP.RECT PR PRN (12:51)
[2017-01-08] MEDS ORDERED: MEASLES,MUMPS&RUBELLA VACC/PF 0.5 ML VIAL SUBCUT PRN (12:51)
[2017-01-08] MEDS ORDERED: PROMETHAZINE HCL INJ 25 MG/1 ML VIAL IV PRN (12:51)
[2017-01-08] MEDS ORDERED: DIBUCAINE 1% OINTMENT 28 GM TP PRN (12:51)
[2017-01-08] MEDS ORDERED: DIPH/PERTUSS(ACELL)/TETANUS VAC/PF 0.5 ML SYR (>=10YO) IM PRN (12:51)
[2017-01-08] MEDS ORDERED: BENZOCAINE/MENTHOL AEROSOL SPRAY 56 ML TOP PRN (12:51)
[2017-01-08] MEDS ORDERED: ZOLPIDEM TARTRATE 5 MG TABLET PO PRN (12:51)
[2017-01-08] MEDS ORDERED: METHYLERGONOVINE MALEATE INJ/PF 0.2 MG/1 ML AMPULE IM ONE (12:52)
[2017-01-08] MEDS ORDERED: MISOPROSTOL 0.2 MG TABLET PR ONE (12:53)
--- NOTE | 2017-01-08 13:03 | Delivery Summary ---
Del Sum A-C Datetime Report Generated by CPN: 01/08/2017 13:02 ADMISSION DATA Chief Complaint: Uterine Contractions Indication for Induction: Not Applicable Admission Impression: Term, Intrauterine ; Active Labor; Intact Membranes DELIVERY PERSONNEL Delivery Doctor:: Kimmy Sanon CNM Labor and Delivery Nurse:: Danica Brown RN Nursery Nurse:: Aylin Curiel RN Nursery Nurse:: JOSE Barlow/YESI: Christi Zhu CNA II MATERNAL INFORMATION Delivery Anesthesia: Epidural Medications After Delivery: Pitocin Bolus-Please Comment; Methergine 0.2mg IM; Cytotec 800mcg Per Rectum/Vagina Meds After Delivery Comment: 20 Units Pitocin/1000ml NS Estimated Blood Loss (ml): 400 Maternal Complications: None; Chorioamnionitis Provider Comments: viable female over intact perineum and left and right periurethral and vaginal lac, OA to CANDICE, no traction, pt pushing baby out, left arm delivered spontaneously, no SD just large baby all over, spont delivery of large placenta, 3 vc, EBL = 400cc, poor tissue in vagina, lacerations repaired without difficulty, cytotec 800 mcg, massage, Pitocin, Methergine 0.2 mg IM, baby placed on mothers abd, cord clamped and cut after 2 minutes, FFFM, baby and mom remain in recovery in stable condition LABOR SUMMARY EDC: 01/05/2017 00:00 No. Babies in Womb: 1 Attempted: No Labor Anesthesia: Epidural LABOR INFORMATION Reason for Induction: Not Applicable Onset of Labor: 01/07/2017 23:04 Complete Dilatation: 01/08/2017 10:10 Oxytocin: Augmentation Group B Beta Strep: negative Antibiotics # of Doses: 0 Antibiotics Time of Last Dose: N/A Name of Antibiotic Given: N/A Steroids Given: None Reason Steroids Not Administered: Not Applicable MEMBRANES Membranes Rupture Method: Spontaneous Rupture of Membranes: 01/08/2017 00:47 Length of Rupture (hr): 10.50 Amniotic Fluid Color: Light Meconium Amniotic Fluid Amount: Large Amniotic Fluid Odor: Normal STAGES OF LABOR Stage 1 hr: 11 Stage 1 min: 6 Stage 2 hr: 1 Stage 2 min: 7 Stage 3 hr: 0 Stage 3 min: 5 Total Time in Labor hr: 12 Total Time in Labor min: 18 VAGINAL DELIVERY Episiotomy: None Laceration Extension: First Degree Laceration Type: Vaginal; Periurethral Laceration Repair: Yes Laceration Repair Note: repaired with 2-0 chromic without difficulty Sponge Count Correct: N/A Sharps Count Correct: N/A BABY A INFORMATION Infant Delivery Date/Time: 01/08/2017 11:17 Method of Delivery: Vaginal Born in Route : No : N/A Forceps: N/A Vacuum Extraction: N/A Shoulder Dystocia : No PRESENTATION/POSITION BABY A Presentation: Cephalic Cephalic Presentation: Vertex Vertex Position: Right Occipital Anterior Breech Presentation: N/A PLACENTA INFORMATION BABY A Placenta Delivery Time : 01/08/2017 11:22 Placenta Method of Delivery: Spontaneous Placenta Status: Delivered SCORES BABY A Heart Rate 1 min: >100 bpm Resp Effort 1 min: Good Cry Reflex Irritability 1 min: Cough or Sneeze or Pulls Away Muscle Tone 1 min: Active Motion Color 1 min: Blue/Pale Resuscitation Effort 1 min: Tactile Stimulation SCORE 1 MIN: 8 Heart Rate 5 min: >100 bpm Resp Effort 5 min: Good Cry Reflex Irritability 5 min: Cough or Sneeze or Pulls Away Muscle Tone 5 min: Active Motion Color 5 min: Body [place], Extremities Blue Resuscitation Effort 5 min: Tactile Stimulation SCORE 5 MIN: 9 INFORMATION BABY A Gestational Age at Delivery: 40.3 Gestational Status: Full Term- 39- 40.6 Weeks Infant Outcome : Liveborn Infant Condition : Stable Sex: Female IDENTIFICATION BABY A Infant Verification Date/Time: 01/08/2017 11:27 ID Band Number: [id number] Mother's Name Verified: Yes Infant RN Verifying Infant: Jason, RN/D.Sadie, RN WEIGHT/LENGTH BABY A Infant Birthweight (gm): 4210 Weight (lb): 9 Weight (oz): 5 Length (in): 21.50 Infant Length (cm): 54.61 CORD INFORMATION BABY A No. Cord Vessels: 3 Nuchal Cord : N/A Cord Blood Taken: Yes-For Eval (Mom's Blood Type - or O+) Suction: None ASSESSMENT BABY A Complications: Meconium Physical Findings at Delivery: Within Normal Limits Respirations: Appears Normal Skin to Skin: Yes Skin to Skin Time (min): 50 Gluer And Slicer Hand/ALS Called : No Infant Care By: Aylin Curiel RN Transferred To: Remains with Mother BABY B INFORMATION : N/A
[2017-01-08] MEDS ORDERED: MISOPROSTOL 0.2 MG TABLET ONE (13:34)
[2017-01-08] MEDS ORDERED: IBUPROFEN 800 MG TABLET ONE (13:34)
[2017-01-08] MEDS: IBUPROFEN 800 MG TABLET PO SCH ×2 (14:38→21:30)
--- NOTE | 2017-01-08 15:52 | Admission Physical ---
Datetime Report Generated by CPN: 01/08/2017 15:52 CURRENT ADMISSION Chief Complaint: Uterine Contractions Indication for Induction: Not Applicable Admit Plan: Admit to Unit; Initiate Labor Protocol ALLERGIES Medication Allergies: No Medication Allergies: No Known Allergies (01/07/2017) Latex: No Latex Allergies Food Allergies: None Environmental Allergies: None OBSTETRICAL HISTORY EDC: 01/05/2017 00:00 : 2 Para: 0 Term: 0 : 0 SAB: 1 IAB: 0 Ectopic: 0 Livin Cesareans: 0 VBACs: 0 Multiple Births: 0 Gestational Diabetes: No Rh Sensitization: No Incompetent Cervix: No VALENTIN: No Infertility: No ART Treatment: No Uterine Anomaly: No IUGR: No Hx Previous C/S: No Macrosomia: No Hx Loss/Stillborn: No PIH: No Hx : No Placenta Previa/Abruption: No Depression/PP Depression: No PTL/PROM: No Post Hemorrhage: No Current Procedures: Ultrasound; NST Obstetrical History Comments: G1 - SAB with D_C in 2013 (8 weeks) G2: current SEE RECORDS Alcohol: No Marijuana : No Cocaine: No Other Illicit Drugs: No Cigarettes: Never Smoker. [id number] MEDICAL HISTORY Diabetes: No Blood Transfusion: No Pulmonary Disease (Asthma, TB): No Breast Disease: No Hypertension: No Spudder Surgery: No Heart Disease: No Hosp/Surgery: No Autoimmune Disorder: No Anesthetic Complications: No Kidney Disease: No Abnormal Pap Smear: Yes Neuro/Epilepsy: No Psychiatric Disorders: No Other Medical Diseases: No Hepatitis/Liver Disease: No Significant Family History: No Varicosities/Phlebitis: No Trauma/Violence : No Thyroid Dysfunction: No Medical History Comments: LGSIL - colpo 6 weeks pp INFECTIOUS HISTORY Gonorrhea: No Genital Herpes: No Chlamydia: Yes Tuberculosis: No Syphilis: No Hepatitis: No HIV/AIDS Exposure: No Rash or Viral Illness: No HPV: Yes Infectious History Comments: Hx of Chlamydia. [facility] on 07/13/2016 PHYSICAL EXAM General: Normal HEENT: Normal Neurologic: Normal Thyroid: Deferred Heart: Normal Lungs: Normal Breast: Deferred Back: Normal Abdomen: Normal Genitourinary Exam: Normal Extremities: Normal DTRs: Normal Pelvic Type: Adequate Vital Signs: Reviewed; Within Normal Limits VAGINAL EXAM Dilatation: 8 Effacement: 90 Station: -1 MEMBRANES Membranes: Intact FETUS A EGA: 40.2 Monitoring: External US FHR- Baseline: 140 Variability: Moderate 6-25bpm Accelerations: 15X15 Decelerations: None FHR Category: Category I PLANS FOR LABOR AND DELIVERY Labor and Delivery: None Pain Management: Natural; Medications Feeding Preference: Breast Benefit of Breast Feed Discussed: Yes Circumcision: N/A INFORMED CONSENT Signature: with User ID: [email or web address]
[2017-01-08] MEDS: FERROUS SULFATE 325 MG TABLET PO SCH (17:51)
[2017-01-08] MEDS: DOCUSATE SODIUM 100 MG CAPSULE PO SCH (17:51)
--- NOTE | 2017-01-08 19:01 | L&D Flow Sheet ---
LD Flowsheet Datetime Report Generated by CPN: 01/08/2017 19:00 Datetime: 01/08/2017 15:36 Stage of : Recovery (Danica Brown RN) NBP Sys/Jimena/Mean (mmHg): 119 (QS system process) : 69 (QS system process) : 88 (QS system process) Pulse: 101 (QS system process) Temperature (F): 99.4 (Danica Brown RN) Temperature (C): 37.4 (QS system process) Temperature Route: Oral (Danica Brown RN) Pain Scale: 0 (Danica Brown RN) Pain Presence: None/Denies (Danica Brown RN) Pain Type: N/A (Danica Brown RN) Pain Goal: 0 (Danica Brown RN) Datetime: 01/08/2017 13:35 Stage of : Recovery (Danica Marhefka, RN) Datetime: 01/08/2017 13:20 Stage of : Recovery (Danica Marhefka, RN) Datetime: 01/08/2017 13:05 Stage of : Recovery (Danica Marhefka, RN) Datetime: 01/08/2017 13:03 NBP Sys/Jimena/Mean (mmHg): 126 (QS system process) : 76 (QS system process) : 95 (QS system process) Pulse: 105 (QS system process) Datetime: 01/08/2017 12:50 Stage of : Recovery (Danica Marhefka, RN) Datetime: 01/08/2017 12:35 Stage of : Recovery (Danica Marhefka, RN) Datetime: 01/08/2017 12:33 NBP Sys/Jimena/Mean (mmHg): 137 (QS system process) : 72 (QS system process) : 97 (QS system process) Pulse: 107 (QS system process) Datetime: 01/08/2017 12:20 Stage of : Recovery (Danica Marhefka, RN) Datetime: 01/08/2017 12:05 Stage of : Recovery (Danica Marhefka, RN) Datetime: 01/08/2017 12:04 NBP Sys/Jimena/Mean (mmHg): 131 (QS system process) : 60 (QS system process) : 87 (QS system process) Pulse: 110 (QS system process) Datetime: 01/08/2017 11:50 Stage of : Recovery (Danica Brown RN) Pain Scale: 2 (Danica Brown RN) Pain Presence: Constant (Danica Brown, RN) Pain Type: Burning (Danica Brown RN) Pain Location: Perineum (Danica Brown RN) Pain Goal: 0 (Danica Brown RN) Pain Relief Measures: Comfort Measures (Danica Brown RN) Datetime: 01/08/2017 11:45 NBP Sys/Jimena/Mean (mmHg): 118 (QS system process) : 53 (QS system process) : 77 (QS system process) Pulse: 139 (QS system process) Datetime: 01/08/2017 11:44 NBP Sys/Jimena/Mean (mmHg): 143 (QS system process) : 73 (QS system process) : 100 (QS system process) Pulse: 137 (QS system process) Datetime: 01/08/2017 11:35 Stage of : Recovery (Dancia Marhefka, RN) Datetime: 01/08/2017 11:17 Comments: viable baby girl (Danica Marhefka, RN) Datetime: 01/08/2017 11:16 Pulse: 170 (QS system process) SpO2 (%): 94 (QS system process) LaborFlag: Antepartum (QS system process) Datetime: 01/08/2017 11:15 Monitor Mode: External (Danica Marhefka, RN) Frequency (min): 1-3 (Danica Marhefka, RN) Quality: Moderate to Strong (Danica Marhefka, RN) Duration (sec): 80-130 (Danica Marhefka, RN) Resting Tone (Palpate): Relaxed (Danica Marhefka, RN) Monitor Mode: External US (Danica Marhefka, RN) FHR Baseline Rate : 135 (Danica Marhefka, RN) FHR Baseline Changes: No Baseline Change (Danica Marhefka, RN) Variability: Moderate 6-25 bpm (Danica Marhefka, RN) Accelerations: 15X15 (Danica Marhefka, RN) Decelerations: Late; Variable (Danica Marhefka, RN) Datetime: 01/08/2017 11:13 Pulse: 133 (QS system process) SpO2 (%): 97 (QS system process) LaborFlag: Antepartum (QS system process) Datetime: 01/08/2017 11:12 Pitocin (milliunit): Pitocin Decreased to (milliunits) @ 3 (Danica Brown, RN) Patient Position/Activity: Left Tilt (Danica Nigelfka, RN) Datetime: 01/08/2017 11:09 Pulse: 147 (QS system process) SpO2 (%): 93 (QS system process) LaborFlag: Antepartum (QS system process) Datetime: 01/08/2017 11:08 Pulse: 139 (QS system process) SpO2 (%): 96 (QS system process) LaborFlag: Antepartum (QS system process) Datetime: 01/08/2017 11:03 Pulse: 137 (QS system process) SpO2 (%): 98 (QS system process) LaborFlag: Antepartum (QS system process) Datetime: 01/08/2017 11:00 Monitor Mode: External (Danica Marhefka, RN) Frequency (min): 1.5-3 (Danica Marhefka, RN) Quality: Moderate to Strong (Danica Marhefka, RN) Duration (sec): 60-80 (Danica Marhefka, RN) Resting Tone (Palpate): Relaxed (Danica Marhefka, RN) Monitor Mode: External US (Danica Marhefka, RN) FHR Baseline Rate : 135 (Danica Marhefka, RN) FHR Baseline Changes: No Baseline Change (Danica Marhefka, RN) Variability: Moderate 6-25 bpm (Danica Marhefka, RN) Accelerations: 15X15 (Danica Marhefka, RN) Decelerations: Variable (Danica Marhefka, RN) Pitocin (milliunit): Pitocin Remains (milliunits) @ (Annotations: 6) (Danica Marhefka, RN) Datetime: 01/08/2017 10:59 Pulse: 158 (QS system process) SpO2 (%): 94 (QS system process) LaborFlag: Antepartum (QS system process) Datetime: 01/08/2017 10:58 Pulse: 164 (QS system process) SpO2 (%): 94 (QS system process) LaborFlag: Antepartum (QS system process) Datetime: 01/08/2017 10:53 Pulse: 169 (QS system process) SpO2 (%): 95 (QS system process) LaborFlag: Antepartum (QS system process) Datetime: 01/08/2017 10:48 Pulse: 121 (QS system process) SpO2 (%): 98 (QS system process) Comments: RN and provider @ bedside continuously monitoring FHTs while pt pushing. (Danica Brown RN) LaborFlag: Antepartum (QS system process) Datetime: 01/08/2017 10:45 Monitor Mode: External; Palpation (Danica Marhefka, RN) Frequency (min): 1-3 (Danica Marhefka, RN) Quality: Moderate to Strong (Danica Marhefka, RN) Duration (sec): 70-100 (Danica Marhefka, RN) Resting Tone (Palpate): Relaxed (Danica Marhefka, RN) Monitor Mode: External US (Danica Marhefka, RN) FHR Baseline Rate : 135 (Danica Marhefka, RN) FHR Baseline Changes: No Baseline Change (Danica Marhefka, RN) Variability: Moderate 6-25 bpm (Danica Marhefka, RN) Accelerations: 15X15 (Danica Marhefka, RN) Pitocin (milliunit): Pitocin Remains (milliunits) @ (Annotations: 6) (Danica Marhefka, RN) Datetime: 01/08/2017 10:43 Pulse: 161 (QS system process) SpO2 (%): 97 (QS system process) LaborFlag: Antepartum (QS system process) Datetime: 01/08/2017 10:40 Pushing Position: Pushing with Contractions (Danica Marhefka, RN) Pushing Progress: Presenting Part Visible (Danica Marhefka, RN) Datetime: 01/08/2017 10:30 Monitor Mode: External (Danica Nigelfka, RN) Frequency (min): 1.5-2 (Danica Marhefka, RN) Quality: Moderate to Strong (Danica Marhefka, RN) Duration (sec): 60-120 (Danica Marhefka, RN) Resting Tone (Palpate): Relaxed (Danica Marhefka, RN) Monitor Mode: External US (Danica Markashiffka, RN) FHR Baseline Rate : 120 (Danica Marhefka, RN) FHR Baseline Changes: No Baseline Change (Danica Marhefka, RN) Variability: Moderate 6-25 bpm (Danica Marhefka, RN) Accelerations: 15X15 (Danica Marhefka, RN) Decelerations: None (Danica Marhefka, RN) Pitocin (milliunit): Pitocin Remains (milliunits) @ (Annotations: 6) (Danica Marhefka, RN) Datetime: 01/08/2017 10:28 Stage 2 Comments: tug a war (Danica Marhefka, RN) Datetime: 01/08/2017 10:23 Pushing: Coached on Pushing; Urge to Push (Danica Marhefka, RN) Pushing Position: Pushing with Contractions (Danica Marhefka, RN) Datetime: 01/08/2017 10:15 Monitor Mode: External (Danica Marhefka, RN) Frequency (min): 2-4 (Danica Marhefka, RN) Quality: Moderate to Strong (Danica Marhefka, RN) Duration (sec): 50-80 (Danica Brown RN) Resting Tone (Palpate): Relaxed (Danica Brown RN) Monitor Mode: External US (Danica Brown RN) FHR Baseline Rate : 135 (Danica Brown RN) FHR Baseline Changes: No Baseline Change (Danica Brown RN) Variability: Moderate 6-25 bpm (Danica Brown RN) Accelerations: None (Danica Brown RN) Decelerations: Early (Danica Brown RN) Pitocin (milliunit): Pitocin Remains (milliunits) @ (Annotations: 6) (Danica Brown RN) I/O Interventions: Piper Discontinued (Danica Brown RN) Datetime: 01/08/2017 10:10 Dilatation (cm): 10.0 (Danica Brown RN) Effacement (%): 100 (Danica Brown RN) Station: 2 (Danica Brown RN) Exam by: Hilaria Brown RN (Danica Brown, JOSE) Datetime: 01/08/2017 10:04 NBP Sys/Jimena/Mean (mmHg): 122 (QS system process) : 73 (QS system process) : 93 (QS system process) Pulse: 108 (QS system process) LaborFlag: Antepartum (QS system process) Datetime: 01/08/2017 10:00 Monitor Mode: External (Danica Brown, RN) Frequency (min): 1-4 (Danica Stephanie, RN) Quality: Moderate to Strong (Danica Marhefka, RN) Duration (sec): 50-100 (Danica Nigelfveronica, RN) Resting Tone (Palpate): Relaxed (Danica Brown, RN) Monitor Mode: External US (Danica Brown, RN) FHR Baseline Rate : 135 (Danica Marhefka, RN) FHR Baseline Changes: No Baseline Change (Danica Nigelfka, RN) Variability: Moderate 6-25 bpm (Danica Marhefka, RN) Accelerations: None (Danica Marhefka, RN) Decelerations: Early (Danica Marhefka, RN) Pitocin (milliunit): Pitocin Remains (milliunits) @ (Annotations: 6) (Danica Stephanie, RN) Datetime: 01/08/2017 09:45 Monitor Mode: External (Danica Marhefka, RN) Frequency (min): 1-3 (Danica Marhefka, RN) Quality: Moderate to Strong (Danica Marhefka, RN) Duration (sec): 60-100 (Danica Marhefka, RN) Resting Tone (Palpate): Relaxed (Danica Marhefka, RN) Monitor Mode: External US (Danica Marhefka, RN) FHR Baseline Rate : 135 (Danica Marhefka, RN) FHR Baseline Changes: No Baseline Change (Danica Marhefka, RN) Variability: Moderate 6-25 bpm (Danica Marhefka, RN) Accelerations: 15X15 (Danica Marhefka, RN) Decelerations: None (Danica Marhefka, RN) Pitocin (milliunit): Pitocin Increased to (milliunits) @ (Annotations: 6) (Danica Marhefka, RN) Datetime: 01/08/2017 09:36 Patient Position/Activity: Right Lateral; Peanut Ball (Danica Marhefka, RN) Datetime: 01/08/2017 09:35 NBP Sys/Jimena/Mean (mmHg): 138 (QS system process) : 63 (QS system process) : 91 (QS system process) Pulse: 118 (QS system process) LaborFlag: Antepartum (QS system process) Datetime: 01/08/2017 09:30 Monitor Mode: External (Danica Brown RN) Frequency (min): 1-4 (Danica Brown RN) Quality: Moderate to Strong (Danica Brown RN) Duration (sec): 60-100 (Danica Brown RN) Resting Tone (Palpate): Relaxed (Danica Brown RN) Monitor Mode: External US (Danica Brown, RN) FHR Baseline Rate : 145 (Danica Brown, RN) FHR Baseline Changes: No Baseline Change (Danica Brown RN) Variability: Moderate 6-25 bpm (Danica Brown, RN) Accelerations: 15X15 (Danica Brown, RN) Decelerations: Early (Danica Brown RN) Pitocin (milliunit): Pitocin Increased to (milliunits) @ (Annotations: 4) (Danica Marhefka, RN) Datetime: 01/08/2017 09:15 Monitor Mode: External; Palpation (Danica Marhefka, RN) Frequency (min): 1-4 (Danica Marhefka, RN) Quality: Moderate to Strong (Danica Marhefka, RN) Duration (sec): 60-100 (Danica Marhefka, RN) Resting Tone (Palpate): Relaxed (Danica Marhefka, RN) Monitor Mode: External US (Danica Marhefka, RN) FHR Baseline Rate : 150 (Danica Marhefka, RN) FHR Baseline Changes: No Baseline Change (Danica Marhefka, RN) Variability: Moderate 6-25 bpm (Danica Marhefka, RN) Accelerations: None (Danica Marhefka, RN) Decelerations: Early (Danica Marhefka, RN) Pitocin (milliunit): Pitocin Remains (milliunits) @ (Annotations: 2) (Danica Marhefka, RN) Datetime: 01/08/2017 09:03 NBP Sys/Jimena/Mean (mmHg): 130 (QS system process) : 75 (QS system process) : 96 (QS system process) Pulse: 115 (QS system process) LaborFlag: Antepartum (QS system process) Datetime: 01/08/2017 09:00 Monitor Mode: External (Danica Brown RN) Frequency (min): 2-3 (Danica Brown RN) Quality: Moderate to Strong (Danica Brown RN) Duration (sec): 60-90 (Danica Brown RN) Resting Tone (Palpate): Relaxed (Danica Brown RN) Monitor Mode: External US (Danica Brown RN) FHR Baseline Rate : 130 (Danica Brown RN) FHR Baseline Changes: No Baseline Change (Danica Brown RN) Variability: Moderate 6-25 bpm (Danica Brown RN) Accelerations: 15X15 (Danica Brown RN) Decelerations: None (Danica Brown RN) Pitocin (milliunit): Pitocin Remains (milliunits) @ (Annotations: 2) (Danica Brown RN) Patient Position/Activity: High Fowlers (Danica Brown RN) Patient Care Comments: Pt sitting in chair position in bed (Danica Brown RN) Datetime: 01/08/2017 08:58 Comments: RN @ bedside adjusting ultrasound (Danica Brown RN) Datetime: 01/08/2017 08:48 Dilatation (cm): 9.0 (Danica Brown RN) Effacement (%): 100 (Danica Brown RN) Station: 0 (Danica Brown RN) Exam by: Hilaria Brown RN (Danica Brown RN) Membrane Status: Ruptured (Danica Brown RN) Membranes Rupture Method: Spontaneous (Danica Brown RN) Amniotic Fluid Color: Light Meconium (Danica Brown RN) Amniotic Fluid Amount: Large (Danica Brown RN) Datetime: 01/08/2017 08:45 Monitor Mode: External (Danica Marhefka, RN) Frequency (min): 2-4 (Danica Marhefka, RN) Quality: Moderate to Strong (Danica Marhefka, RN) Duration (sec): 60-90 (Danica Marhefka, RN) Resting Tone (Palpate): Relaxed (Danica Marhefka, RN) Monitor Mode: External US (Danica Marhefka, RN) FHR Baseline Rate : 130 (Danica Marhefka, RN) FHR Baseline Changes: No Baseline Change (Danica Marhefka, RN) Variability: Moderate 6-25 bpm (Danica Marhefka, RN) Accelerations: None (Danica Marhefka, RN) Decelerations: Early (Danica Marhefka, RN) Pitocin (milliunit): Pitocin Remains (milliunits) @ (Annotations: 2) (Danica Marhefka, RN) Datetime: 01/08/2017 08:34 NBP Sys/Jimena/Mean (mmHg): 120 (QS system process) : 68 (QS system process) : 87 (QS system process) Pulse: 116 (QS system process) LaborFlag: Antepartum (QS system process) Datetime: 01/08/2017 08:30 Monitor Mode: External (Danica Marhefka, RN) Frequency (min): 2-3 (Danica Marhefka, RN) Quality: Moderate to Strong (Danica Marhefka, RN) Duration (sec): 60-100 (Danica Marhefka, RN) Resting Tone (Palpate): Relaxed (Danica Marhefka, RN) Monitor Mode: External US (Danica Marhefka, RN) FHR Baseline Rate : 130 (Danica Marhefka, RN) FHR Baseline Changes: No Baseline Change (Danica Marhefka, RN) Variability: Moderate 6-25 bpm (Danica Marhefka, RN) Accelerations: 15X15 (Danica Marhefka, RN) Decelerations: None (Danica Marhefka, RN) Pitocin (milliunit): Pitocin Remains (milliunits) @ (Annotations: 2) (Danica Marhefka, RN) Datetime: 01/08/2017 08:15 Monitor Mode: External (Danica Marhefka, RN) Frequency (min): 1-3 (Danica Marhefka, RN) Quality: Moderate to Strong (Danica Marhefka, RN) Duration (sec): 60-100 (Danica Marhefka, RN) Resting Tone (Palpate): Relaxed (Danica Marhefka, RN) Monitor Mode: External US (Danica Marhefka, RN) FHR Baseline Rate : 145 (Danica Marhefka, RN) FHR Baseline Changes: No Baseline Change (Danica Marhefka, RN) Variability: Moderate 6-25 bpm (Daniac Marhefka, RN) Accelerations: None (Danica Marhefka, RN) Decelerations: None (Danica Marhefka, RN) Pitocin (milliunit): Pitocin Remains (milliunits) @ (Annotations: 2) (Danica Marhefka, RN) Datetime: 01/08/2017 08:03 NBP Sys/Jimena/Mean (mmHg): 131 (QS system process) : 77 (QS system process) : 95 (QS system process) Pulse: 118 (QS system process) Respirations: 15 (Danica Marhefka, RN) LaborFlag: Antepartum (QS system process) Datetime: 01/08/2017 08:02 Level of Consciousness: Fully Conscious (Danica Marhefka, RN) DTR's/Clonus: DTRs 2+; No Clonus (Danica Marhefka, RN) Headache: Denies (Danica Marhefka, RN) Breath Sounds, Left: Clear and Equal (Danica Marhefka, RN) Breath Sounds, Right: Clear and Equal (Danica Marhefka, RN) Nausea/Vomiting: Present (Annotations: Pt states she has been nauseous ) (Danica Nieglfka, RN) RUQ Epigastric Pain: Denies (Danica Marhefka, RN) Datetime: 01/08/2017 08:00 Monitor Mode: External (Danica Dalalka, RN) Frequency (min): 1-2 (Danica Nigelfka, RN) Quality: Moderate to Strong (Danica Markashfifka, RN) Duration (sec): 60-90 (Danica Marhefka, RN) Resting Tone (Palpate): Relaxed (Danica Nigelfka, RN) Monitor Mode: External US (Danica Brown, RN) FHR Baseline Rate : 145 (Danica Nigelfka, RN) FHR Baseline Changes: No Baseline Change (Danica Marhefka, RN) Variability: Moderate 6-25 bpm (Danica Marhefka, RN) Accelerations: None (Danica Marhefka, RN) Decelerations: None (Danica Markashiffka, RN) Pitocin (milliunit): Pitocin Remains (milliunits) @ (Annotations: 2) (Danica Marhefka, RN) Datetime: 01/08/2017 07:56 Patient Position/Activity: Hands-Knees (Danica Marhefka, RN) Datetime: 01/08/2017 07:45 Monitor Mode: External (Danica Marhefka, RN) Frequency (min): 2-4 (Danica Marhefka, RN) Quality: Moderate to Strong (Danica Marhefka, RN) Duration (sec): 70-130 (Danica Marhefka, RN) Resting Tone (Palpate): Relaxed (Danica Marhefka, RN) Monitor Mode: External US (Danica Marhefka, RN) FHR Baseline Rate : 135 (Danica Marhefka, RN) FHR Baseline Changes: No Baseline Change (Danica Marhefka, RN) Variability: Moderate 6-25 bpm (Danica Marhefka, RN) Accelerations: None (Danica Marhefka, RN) Decelerations: None (Danica Marhefka, RN) Pitocin (milliunit): Pitocin Remains (milliunits) @ (Annotations: 2) (Danica Marhefka, RN) Datetime: 01/08/2017 07:33 NBP Sys/Jimena/Mean (mmHg): 111 (QS system process) : 64 (QS system process) : 82 (QS system process) Pulse: 104 (QS system process) Respirations: 14 (Danica Brown RN) Temperature (F): 99.2 (Danica Brown RN) Temperature (C): 37.3 (QS system process) Temperature Route: Oral (Danica Brown RN) Pain Scale: 0 (Danica Brown RN) Pain Presence: None/Denies (Danica Brown RN) Pain Type: N/A (Danica Brown RN) Pain Goal: 0 (Danica Brown RN) Pain Relief Measures: Comfort Measures (Danica Brown RN) Pain Coping: Talking Through Contractions; Other (Annotations: Pt watching tv and on her cell phone) (Danica Brown RN) LaborFlag: Antepartum (QS system process) Datetime: 01/08/2017 07:30 Monitor Mode: External; Palpation (Danica Brown RN) Frequency (min): 2-3 (Danica Marhefka, RN) Quality: Moderate to Strong (Danica Marhefka, RN) Duration (sec): 60-100 (Danica Marhefka, RN) Resting Tone (Palpate): Relaxed (Danica Marhefka, RN) Monitor Mode: External US (Danica Marhefka, RN) FHR Baseline Rate : 135 (Danica Marhefka, RN) FHR Baseline Changes: No Baseline Change (Danica Marhefka, RN) Variability: Moderate 6-25 bpm (Danica Marhefka, RN) Accelerations: None (Danica Marhefka, RN) Decelerations: None (Danica Marhefka, RN) Pitocin (milliunit): Pitocin Remains (milliunits) @ (Annotations: 2) (Danica Marhefka, RN) Datetime: 01/08/2017 07:21 Communication: Report Given to @ R Marchristel RN (Caty Zamora RN) Datetime: 01/08/2017 07:15 Monitor Mode: External (Danica Marhefka, RN) Frequency (min): 1-3 (Danica Marhefka, RN) Quality: Moderate to Strong (Danica Marhefka, RN) Duration (sec): 60-120 (Danica Marhefka, RN) Resting Tone (Palpate): Relaxed (Danica Marhefka, RN) Monitor Mode: External US (Danica Nigelfka, RN) FHR Baseline Rate : 130 (Danica Marhefka, RN) FHR Baseline Changes: No Baseline Change (Danica Marhefka, RN) Variability: Moderate 6-25 bpm (Danica Marhefka, RN) Accelerations: 15X15 (Danica Marhefka, RN) Decelerations: None (Danica Marhefka, RN) Pitocin (milliunit): Pitocin Remains (milliunits) @ (Annotations: 2) (Danica Marhefka, RN) Datetime: 01/08/2017 07:03 NBP Sys/Jimena/Mean (mmHg): 110 (QS system process) : 66 (QS system process) : 82 (QS system process) Pulse: 105 (QS system process) LaborFlag: Antepartum (QS system process) Datetime: 01/08/2017 07:00 Monitor Mode: External; Palpation (Caty Zamora RN) Frequency (min): 1.5-3.5 (Caty Zamora, RN) Quality: Strong (Caty Zamora, RN) Duration (sec): 60-100 (Caty Zamora, RN) Duration Criteria: Less than Two 120 Second Contractions (Caty Zamora, RN) Pattern: Normal: <= 5 Contractions in 10 Minutes (Caty Zamora, RN) Resting Tone (Palpate): Relaxed (Caty Zamora, RN) Monitor Mode: External US (Caty Zamora, JOSE) FHR Baseline Rate : 130 (Caty Zamora, JOSE) FHR Baseline Changes: No Baseline Change (Caty Zamora, RN) Variability: Minimal - Undetectable to <=5 bpm (Caty Zamora, RN) Accelerations: None (Caty Zamora, RN) Decelerations: None (Caty Zamora, JOSE) Pitocin (milliunit): Pitocin Remains (milliunits) @ (Annotations: 2) (Caty Zamora, JOSE)
[2017-01-08] MEDS: FAMOTIDINE 20 MG TABLET PO SCH (21:30)
--- NOTE | 2017-01-09 06:01 | L&D General Admission ---
General Admit Datetime Report Generated by CPN: 01/09/2017 06:00 INFORMATION Patient Age: 21 (11/08/2016 08:25:QS system process) EDC: 01/05/2017 00:00 (11/08/2016 08:28:Mallory Grimaldo RN) : 2 (11/08/2016 08:28:Mallory Grimaldo RN) Para: 0 (01/07/2017 19:38:Carmina Omer RN) Term: 0 (11/08/2016 08:28:Mallory Grimaldo RN) : 0 (11/08/2016 08:28:Mallory Grimaldo RN) Spontaneous Abortions: 1 (11/08/2016 08:28:Mallory Grimaldo RN) Induced Abortions: 0 (11/08/2016 08:28:Mallory Grimaldo RN) Livin (11/08/2016 08:28:Mallory Grimaldo RN) Cesareans: 0 (11/08/2016 08:28:Mallory Grimaldo RN) VBACs: 0 (11/08/2016 08:28:Mallory Grimaldo RN) Ectopic: 0 (11/08/2016 08:28:Mallory Grimaldo RN) Multiple Births: 0 (11/08/2016 08:28:Mallory Grimaldo RN) Baby, Number in Womb: 1 (01/07/2017 19:38:Carmina Omer RN) CARE Primary Director Transportation: [facility] (11/08/2016 08:28:Mallory Grimaldo RN) Month of 1st Visit: April (11/08/2016 08:28:Mallory Grimaldo RN) Adequate Care: Yes (11/08/2016 08:28:Mallory Grimaldo RN) Height (in): 67 (01/08/2017 15:51:QS system process) ALLERGIES Medication Allergy: No (11/08/2016 08:28:Mallory Grimaldo RN) Medication Allergies: No Known Allergies (01/07/2017) (01/07/2017 10:40:QS system process) Latex Allergy: No Latex Allergies (11/08/2016 08:28:Mallory Grimaldo RN) Food Allergies: None (11/08/2016 08:28:Mallory Grimaldo RN) Environmental Allergies: None (11/08/2016 08:28:Mallory Grimaldo RN) COMMUNICATION Primary Language: Congolese (11/08/2016 08:28:Mallory Grimaldo RN) Medical Tx Preferred Language: Congolese (Annotations: Data stored by N on behalf of user) (11/08/2016 08:28:Rosemarie Vega RN) Communication Barrier(s): None (11/08/2016 08:28:Mallory Grimaldo RN) DEMOGRAPHICS Address: [address] [place] [id number] (11/08/2016 08:25:QS system process) Zipcode: [address] (11/08/2016 08:25:QS system process) Home (11/08/2016 08:25:QS system process) N: [phone] (11/08/2016 08:25:QS system process) Next of Kin Name: MANUEL OLIVAREZ (11/08/2016 08:25:QS system process) Next of Kin (11/08/2016 08:25:QS system process) Next of Kin Relationship: OR (11/08/2016 08:25:QS system process) Date of : 1995 (11/08/2016 08:25:QS system process) Marital Status: Single (11/08/2016 08:25:QS system process) Sex: Female (11/08/2016 08:25:QS system process) Race: (11/08/2016 08:25:QS system process) Ethnicity: Non- or (11/08/2016 08:25:QS system process) Adventism: None (11/08/2016 08:25:QS system process) DRUG AND ALCOHOL USE Alcohol: No (11/08/2016 08:28:Mallory Grimaldo RN) Cigarettes: Never Smoker. [phone] (11/08/2016 08:28:Mallory Grimaldo RN) Marijuana: No (11/08/2016 08:28:Mallory Grimaldo RN) Cocaine: No (11/08/2016 08:28:Mallory Grimaldo RN) Other Illicit Drugs: No (11/08/2016 08:28:Shweta Rogers RN) VACCINE HISTORY Influenza Vaccine: No (11/08/2016 08:28:Mallory Grimaldo RN) Pneumococcal Vaccine: No (11/08/2016 08:28:Mallory Grimaldo RN) Tetanus Vaccine: Yes (11/08/2016 08:28:Mallory Grimaldo RN) Tetanus Date: 11/02/2016 (11/08/2016 08:28:Mallory Grimaldo RN) Tdap Vaccine: Yes (11/08/2016 08:28:Mallory Grimaldo RN) Tdap Date: 11/02/2016 (11/08/2016 08:28:Mallory Grimaldo RN) Hepatitis B Vaccine: No (11/08/2016 08:28:Mallory Grimaldo RN) Stationary Engineer Supervisor: [facility] (11/08/2016 08:28:Mallory Grimaldo RN) Feeding Preference: Breast (11/08/2016 08:28:Mallory Grimaldo RN) Benefit of Breast Feed Discussed: Yes (11/08/2016 08:28:Mallory Grimaldo RN) Circumcision: N/A (11/08/2016 08:28:Mallory Grimaldo RN) Classes Attended: No (11/08/2016 08:28:Mallory Grimaldo RN) Tubal Ligation: No (11/08/2016 08:28:Mallory Grimaldo RN) Tubal Authorization Signed: N/A (11/08/2016 08:28:Mallory Grimaldo RN) Consent: N/A (11/08/2016 08:28:Mallory Grimaldo RN) Consent Signed: N/A (11/08/2016 08:28:Mallory Grimaldo RN) Pain Management Plans: Natural; Medications (11/08/2016 08:28:Mallory Grimaldo RN) Plans for Labor and Delivery: None (11/08/2016 08:28:Mallory Grimaldo RN) Support Person: Manuel Olivarez (11/08/2016 08:28:Mallory Grimaldo RN) Support Person Relationship: (11/08/2016 08:28:Mallory Grimaldo RN) Cultural/Spritual Practice: No (11/08/2016 08:28:Mallory Grimaldo RN) Spir/Cult Dietary Needs: No (11/08/2016 08:28:Mallory Grimaldo RN) LIVING SITUATION/DISCHARGE PLAN Living Arrangements: House (11/08/2016 08:28:Mallory Grimaldo RN) Adequate Access to:: Electric; Heat; Refrigeration; Plumbing/Running water; Phone; Transportation (11/08/2016 08:28:Mallory Grimaldo RN) WIC Program: No (11/08/2016 08:28:Mallory Grimaldo RN) Discharge Product Engineer Person: Manuel Olivarez (11/08/2016 08:28:Mallory Grimaldo RN) Person to Help after Discharge: Manuel Olivarez (11/08/2016 08:28:Mallory Grimaldo RN) Currently Using Commun Resources: Mariya (11/08/2016 08:28:Mallory Grimaldo RN) Outside Agency/Developmental Therapist: Mariya (11/08/2016 08:28:Mallory Grimaldo RN) Car Seat for Discharge: Yes (11/08/2016 08:28:Mallory Grimaldo RN) Adoption Requested: No (11/08/2016 08:28:Mallory Grimaldo RN) Pt Contact w/ Post : N/A (11/08/2016 08:28:Mallory Grimaldo RN) LABS Blood Type: O Positive (11/08/2016 08:28:Mallory Grimaldo RN) Antibody Screen: negative (11/08/2016 08:28:Radha Resendiz RN) Hemoglobin: 9.4 L (01/07/2017 23:22:QS system process) Hematocrit: 29.6 L (01/07/2017 23:22:QS system process) MCV: 70 L (01/07/2017 23:22:QS system process) Group Beta Strep: negative (11/08/2016 08:28:Radha Resendiz RN) Gonorrhea: Negative (11/08/2016 08:28:Radha Resendiz RN) Chlamydia: Negative (11/08/2016 08:28:Radha Resendiz RN) RPR/VDRL: Nonreactive (11/08/2016 08:28:Mallory Grimaldo RN) HIV Exposure Test: Negative (11/08/2016 08:28:Mallory Grimaldo RN) Hepatitis B: Negative (11/08/2016 08:28:Radha Resendiz RN) Rubella: Immune (11/08/2016 08:28:Radha Resendiz RN) Varicella: Susceptible (11/08/2016 08:28:Radha Resendiz RN) OB/PREVIOUS HISTORY Previous Procedures: None (11/08/2016 08:28:Mallory Grimaldo RN) Current Procedures: Ultrasound; NST (11/08/2016 08:28:Mallory Grimaldo RN) History of Previous : No (11/08/2016 08:28:Mallory Grimaldo RN) History of Gestational Diabetes: No (11/08/2016 08:28:Mallory Grimaldo RN) History of PIH: No (11/08/2016 08:28:Mallory Grimaldo RN) History of Incompetent Cervix: No (11/08/2016 08:28:Mallory Grimaldo RN) History of Placenta Previa/Abrup: No (11/08/2016 08:28:Mallory Grimaldo RN) History of Macrosomia: No (11/08/2016 08:28:Mallory Grimaldo RN) History of IUGR: No (11/08/2016 08:28:Mallory Grimaldo RN) History of Hemorrhage: No (11/08/2016 08:28:Mallory Grimaldo RN) History of Loss/Stillborn: No (11/08/2016 08:28:Mallory Grimaldo RN) History of : No (11/08/2016 08:28:Mallory Grimaldo RN) History of D (Rh) Sensitization: No (11/08/2016 08:28:Mallory Grimaldo RN) History Recurrent Loss/Stillborn: No (11/08/2016 08:28:Mallory Grimaldo RN) History Depression/PP Depression: No (11/08/2016 08:28:Mallory Grimaldo RN) History of Uterine Anomaly/VALENTIN: No (11/08/2016 08:28:Mallory Grimaldo RN) History of Infertility: No (11/08/2016 08:28:Mallory Grimaldo RN) History of ART Treatment: No (11/08/2016 08:28:Mallory Grimaldo RN) History of VALENTIN: No (11/08/2016 08:28:Mallory Grimaldo RN) Comments Obstetrical History: G1 - SAB with D_C in 2013 (8 weeks) G2: current (11/08/2016 08:28:Yessi Hargrove RN) MEDICAL HISTORY Med Hx Diabetes: No (11/08/2016 08:28:Mallory Grimaldo RN) Med Hx Hypertension: No (11/08/2016 08:28:Mallory Grimaldo RN) Med Hx Heart Disease: No (11/08/2016 08:28:Mallory Grimaldo RN) Med Hx Autoimmune Disorder: No (11/08/2016 08:28:Mallory Grimaldo RN) Med Hx Kidney Disease/UTI: No (11/08/2016 08:28:Mallory Grimaldo RN) Med Hx Neurologic/Epilepsy: No (11/08/2016 08:28:Mallory Grimaldo RN) Med Hx Psychiatric Disorders: No (11/08/2016 08:28:Mallory Grimaldo RN) Med Hx Hepatitis/Liver Disease: No (11/08/2016 08:28:Mallory Grimaldo RN) Med Hx Varicosities/Phlebitis: No (11/08/2016 08:28:Mallory Grimaldo RN) Med Hx Thyroid Dysfunction: No (11/08/2016 08:28:Mallory Grimaldo RN) Med Hx Trauma/Violence: No (11/08/2016 08:28:Mallory Grimaldo RN) Med Hx Blood Transfusion: No (11/08/2016 08:28:Mallory Grimaldo RN) Med Hx Pulmonary (Asthma,TB): No (11/08/2016 08:28:Mallory Grimaldo RN) Med Hx Breast: No (11/08/2016 08:28:Mallory Grimaldo RN) Med Hx ALLERGY PHYSICIAN Surgery: No (11/08/2016 08:28:Mallory Grimaldo RN) Med Hx Hospitalization/Surgery: No (11/08/2016 08:28:Mallory Grimaldo RN) Med Hx Anesthetic Complications: No (11/08/2016 08:28:Mallory Grimaldo RN) Med Hx Abnormal Pap Smear: Yes (11/08/2016 08:28:Mallory Grimaldo RN) Other Medical Diseases: No (11/08/2016 08:28:Mallory Grimaldo RN) Med Hx Significant Family Hx: No (11/08/2016 08:28:Mallory Grimaldo RN) Details of Med/Surg Hx: LGSIL - colpo 6 weeks pp (11/08/2016 08:28:Mallory Grimaldo RN) INFECTIOUS HISTORY Inf Hx Gonorrhea: No (11/08/2016 08:28:Mallory Grimaldo RN) Inf Hx Chlamydia: Yes (11/08/2016 08:28:Mallory Grimaldo RN) Inf Hx Syphilis: No (11/08/2016 08:28:Mallory Grimaldo RN) Inf Hx HIV/AIDS: No (11/08/2016 08:28:Mallory Grimaldo RN) Inf Hx Human Papilloma Virus: Yes (11/08/2016 08:28:Mallory Grimaldo RN) Inf Hx Pt/Partner Genital Herpes: No (11/08/2016 08:28:Mallory Grimaldo RN) Inf Hx Tuberculosis/Exposure: No (11/08/2016 08:28:Mallory Grimaldo RN) Inf Hx Hepatitis B,C: No (11/08/2016 08:28:Mallory Grimaldo RN) Inf Hx Rash or Viral Illness: No (11/08/2016 08:28:Mallory Grimaldo RN) Details of Infectious Hx: Hx of Chlamydia. MEHDI on 07/13/2016 (11/08/2016 08:28:Mallory Grimaldo RN) GENETIC HISTORY Gen Hx Age >=35 at SHAMIR: No (11/08/2016 08:28:Mallory Grimaldo RN) Gen Hx Thalassemia: No (11/08/2016 08:28:Mallory Grimaldo RN) Gen Hx Congenital Heart Defect: No (11/08/2016 08:28:Mallory Grimlado RN) Gen Hx Neural Tube Defect: No (11/08/2016 08:28:Mallory Grimaldo RN) Gen Hx Down's Syndrome: No (11/08/2016 08:28:Mallory Grimaldo RN) Gen Hx Chinmay-Sachs: No (11/08/2016 08:28:Mallory Grimaldo RN) Gen Hx Jalil: No (11/08/2016 08:28:Mallory Grimaldo RN) Gen Hx Familial Dysautonomia: No (11/08/2016 08:28:Mallory Grimaldo RN) Gen Hx Sickle Cell Disease/Trait: No (11/08/2016 08:28:Mallory Grimaldo RN) Gen Hx Hemophilia/Blood Disorder: No (11/08/2016 08:28:Mallory Grimaldo RN) Gen Hx Muscular Dystrophy: No (11/08/2016 08:28:Mallory Grimaldo RN) Gen Hx Cystic Fibrosis: No (11/08/2016 08:28:Mallory Grimaldo RN) Gen Hx Huntingtons Chorea: No (11/08/2016 08:28:Mallory Grimaldo RN) Gen Hx Mental Retardation/Autism: No (11/08/2016 08:28:Mallory Grimaldo RN) Gen Hx Tested for Fragile X: No (11/08/2016 08:28:Mallory Grimaldo RN) Gen Hx Other Inher/Chromosomal: No (11/08/2016 08:28:Mallory Grimaldo RN) Gen Hx Maternal Metabolic DO: No (11/08/2016 08:28:Mallory Grimaldo RN) Gen Hx Pt Father or FOB Defect: No (11/08/2016 08:28:Mallory Grimaldo RN) Gen Hx Other Genetic History: No (11/08/2016 08:28:Mallory Grimaldo RN) Gen Hx Drugs/Meds since LMP: Yes (11/08/2016 08:28:Yessi Hargrove RN) Gen Hx Medications: PNV, tylenol (11/08/2016 08:28:Yessi Hargrove RN)
--- NOTE | 2017-01-09 06:01 | L&D Current Admission ---
Current Admit Datetime Report Generated by CPN: 01/09/2017 06:00 ADMISSION INFORMATION Current Admit Date/Time: 01/07/2017 23:20 (01/07/2017 23:20:Caty Zamora RN) Reason for Admission: Onset of Labor (01/07/2017 23:20:Caty Zamora RN) Chief Complaint: Contractions (01/07/2017 23:11:Caty Zamora RN) EGA per Dates: 40.2 (01/07/2017 23:20:QS system process) Method of Arrival: Wheelchair (01/07/2017 23:20:Caty Zamora RN) Reason for Induction: Not Applicable (01/07/2017 23:20:Caty Zamora RN) Records Available: Yes (01/07/2017 23:20:Caty Zamora RN) General Admission Information: Reviewed (01/07/2017 23:20:Caty Zamora RN) BELONGINGS/ADVANCED DIRECTIVES Other Belongings: see belongings consent (01/07/2017 23:20:Caty Zamora RN) Disposition of Belongings: Kept with Patient (01/07/2017 23:20:Caty Zamora RN) Advance Direct for Healthcare: No, and Wants No Information (01/07/2017 23:20:Caty Zamora RN) Durable Power of Brick Washer: No (01/07/2017 23:20:Caty Zamora RN) Living Will: No (01/07/2017 23:20:Caty Zamora RN) Organ Donor: Yes (01/07/2017 23:20:Caty Zamora RN) Pt Rights Information Given: Yes (01/07/2017 23:20:Caty Zamora RN) Pt Understands Pt Rights: Yes (01/07/2017 23:20:Caty Zamora RN) LEARNING ASSESSMENT Knowledge Level: Understands L_D Process; Understands Care Activities; Understands Diagnosis (01/07/2017 23:20:Caty Zamora RN) Barriers to Learning: None (01/07/2017 23:20:Caty Zamora RN) Learning Readiness: Motivated (01/07/2017 23:20:Caty Zamora RN) Learns Best By: 1 to 1 Instruction (01/07/2017 23:20:Caty Zamora RN) Learning Needs: Labor and Delivery Process; Pain Management; Symptoms to Report; Treatment Plan; Medication; Diagnosis; Nutrition; Equipment; Care; Community Resources (01/07/2017 23:20:Caty Zamora RN) DOMESTIC VIOLANCE SCREENING Dom Viol Threatened/Hurt: No (01/07/2017 23:20:Caty Zamora RN) Hx of Abuse/Neglect past 2yrs: No (01/07/2017 23:20:Caty Zamora RN) Feel Unsafe Going Home: No (01/07/2017 23:20:Caty Zamora RN) Addt'l Observ Indicating Abuse: No (01/07/2017 23:20:Caty Zamora RN) Reason Unable to Complete Screen: N/A, Screen Completed (01/07/2017 23:20:Caty Zamora RN) Considered Personal Harm/Suicide: No (01/07/2017 23:20:Caty Zamora RN) NUTRITIONAL/FUNCTIONAL SCREENING Problem with Appetite >5 Days: No (01/07/2017 23:20:Caty Zamora RN) Chew/Swallow Difficulties: No (01/07/2017 23:20:Caty Zamora RN) Inappropriate Wt Gain/Loss: No (01/07/2017 23:20:Caty Zamora RN) Presence Skin Breakdown/Ulcer: No (01/07/2017 23:20:Caty Zamora RN) Special Diet: No (01/07/2017 23:20:Caty Zamora RN) Pt Requests X Ray Consultant Visit: No (01/07/2017 23:20:Caty Zamora RN) Hx of Any of the Following?: N/A (01/07/2017 23:20:Caty Zamora RN) New Diagnosis of: N/A (01/07/2017 23:20:Caty Zamora RN) Requires Assist w/Ambulation: No (01/07/2017 23:20:Caty Zamora RN) Uses Assist Device to Ambulate: No (01/07/2017 23:20:Caty Zamora RN) Pt Requires Help w/ADL's: No (01/07/2017 23:20:Caty Zamora RN)
--- NOTE | 2017-01-09 06:16 | L&D Care Plan ---
LD CARE PLANS Datetime Report Generated by CPN: 01/09/2017 06:15 Datetime: 01/07/2017 23:38 State: Actual (Elli Medina RN) Related To: Labor and Delivery Process; Treatment and Procedures (Elli Medina RN) Goal(s): Patients Pain will be Assessed and Managed; Patient will Verbalize Adequate Relief of Pain or the Ability to [place] with Current Pain (Elli Medina RN) Interventions: Assess Pain Severity on Scale of 0 (None) to 5 (Severe); Assess Type, Location and Intensity of Pain Each Time Client Reports Discomfort and Notify Provider if Unusal Pain Develops; Encourage Proper Breathing and Relaxation Techniques; Offer Alternatives Such as Repositioning, Calm Environment, Massages, Diversional Activities, Ice Pack, Splinting, and Ambulation; Administer Analgesics as Ordered; Assist with Epidural Placement as Appropriate; Evaluate Therapeutic Effectiveness of Medication and Treatments (Elli Medina RN) Outcome: Patient will Report Absence or Relief of Pain Consistent with Established Pain Goal (Elli Medina RN) Status: Ongoing (Elli Medina RN) Outcome: Patient will have a Decrease in Signs and Symptoms of Discomfort (Elli Medina RN) Status: Ongoing (Elli Medina RN) Outcome: Pain will be Controlled During Procedures (Elli Medina RN) Status: Ongoing (Elli Medina RN) State: Risk For (Elli Medina RN) Related To: Labor and Delivery Process; Perceived or Actual Threat to ; Fear of Unknown; Situational Crisis; Medical Interventions; Significant Life Event (Elli Medina RN) Goal(s): Patient will have Decreased Anxiety and be able to Function at Acceptable Levels (Elli Medina RN) Interventions: Assess Verbal and Nonverbal Behavioral Indicators of Anxiety; Assist Patient to Identify and Verbalize Symptoms of Anxiety; Identify and Demonstrate Techniques to Control Anxiety; Assist Patient with Coping Mechanisms to Manage Anxiety; Provide Theraputic Touch for the Patient; Explain to Patient, Using a Calm Reassuring Approach and Nonmedical Terms, All Activities, Procedures, and Concerns; Instruct Patient and Family about Post Discharge Care, Limitations, Symptoms to Report and Resources Available (Elli Medina RN) Outcome: Patient will Identify, Verbalize and Demonstrate Techniques to Control Anxiety (Elli Medina RN) Status: Ongoing (Elli Medina RN) Outcome: Patient's Posture, Facial Expressions, Gestures and Activity Level will Reflect Decreased Anxiety (Elli Medina RN) Status: Ongoing (Elli Medina RN) Outcome: Patient will Verbalize a Sense of Control and/or Acceptance of the Situation (Elli Medina RN) Status: Ongoing (Elli Medina RN) Outcome: Patient will Identify and Utilize Support Person (Elli Medina RN) Status: Ongoing (Elli Medina RN) State: Actual (Elli Medina RN) Related To: Labor and Delivery Process; Surgical Procedures; Treatment and Procedures; Impending Alterations in Family Dynamics; Feeding and Care (Elli Medina RN) Goal(s): Patient will Accurately Verbalize Understanding of Plan of Care and Treatment; Patient and Family will Accurately Verbalize Understanding of the Disease Process (Elli Medina RN) Interventions: Assess Motivation and Willingness of Patient/Family to Learn; Assess Preferred Learning Mode: One to One Instruction, Reading, Videos, Group Discussion or Demonstration; Assess Barriers to Learning: Pain, Emotional State, Language Barrier, Cognitive Impairment, Visual or Hearing Deficits; Assess Patient and Family Knowledge of Disease Process, Medications and Treatment; Discuss Therapy and/or Treatment Options, Describe Rationale Behind Management, Therapy and Treatment Recommendations; Instruct Patient and Family on Signs and Symptoms to Report; Instruct Patient and Family on Medication Effects and Side Effects; Provide Appropriate and Timely Education Using Multiple Techniques; Provide Patient and Family with Support Group Information and Resources; Give Clear and Thorough Explanations and Demonstrations (Elli Medina RN) Outcome: Patient and Family will Verbalize Understanding of Condition, Treatment and Signs and Symptoms to Report (Elli Medina RN) Status: Ongoing (Elli Medina RN) Outcome: Patient will Identify Perceived Learning Needs and Express Motivation to Learn (Elli Medina RN) Status: Ongoing (Elli Medina RN) Outcome: Patient will Verbalize Understanding of Desired Content, and/or Performs Desired Skill Prior to Discharge (Elli Medina RN) Status: Ongoing (Elli Medina RN) State: Risk For (Elli Medina RN) Related To: Invasive Procedures (Elli Medina RN) Goal(s): The Patient will be Free of Infection, Vital Signs Stable and Lab Work within Normal Parameters (Elli Medina RN) Interventions: Instruct and Reinforce Proper Handwashing, Hygiene, and Care Techniques to Patient and Family; Monitor Vital Signs; Monitor Patient for the Following Signs of Infection: Fever, Abdominal Tenderness, Unusual Discharge; Monitor Aminiotic Fluid, Urine and Lochia for Color and Odor; Observe Wounds, Incisions and Invasive Line Sites for Redness, Drainage and Edema; Assess IV Sites per Hospital Policy; Monitor Lab and Test Results and Notify Provider of Abnormal Findings; Assess Nutritional Status and Promote Good Nutrition (Elli Medina RN) Outcome: Patient will Remain Free of Infection (Elli Medina RN) Status: Ongoing (Elli Medina RN) Outcome: Infection will be Recognized Early to Allow for Prompt Treatment (Elli Medina RN) Status: Ongoing (Elli Medina RN) Outcome: Patient will have Vital Signs Within Expected Range (Elli Medina RN) Status: Ongoing (Elli Medina RN) State: Risk For (Elli Medina RN) Related To: Labor and Delivery Process (Elli Medina RN) Goal(s): Patient will Remain Free from Injury (Elli Medina RN) Interventions: Monitoring as per Hospital Protocol; Assess Neurological Status; Perform Risk Assessment of Patients with Induction and ; Perform Fall Risk Assessment and Prevention per Hospital Protocol; Perform DVT Risk Assessment and Prophylaxis per Hospital Protocol; Ensure that Oxygen, Suction, and Resuscitation Medications and Equipment are Readily Available; Confirm Patient ID Prior to Procedure(s) and Medication Administration per Hospital Policy (Elli Medina RN) Outcome: Successful Fall Risk Prevention (Elli Medina RN) Status: Ongoing (Elli Medina RN) Outcome: Patient will Deliver without Adverse Sequela (Elli Medina RN) Status: Ongoing (Elli Medina RN) Outcome: Patient's Neurological Status will Remain Stable (Elli Medina RN) Status: Ongoing (Elli Medina RN)
[2017-01-09] MEDS: IBUPROFEN 800 MG TABLET PO SCH ×3 (06:28→21:03)
[2017-01-09 07:42] LABS: HEMATOCRIT 18.1 % (36.0-47.0); HGB HCT DIFFERENCE -0.7; MEAN CORPUSCULAR HEMOGLOBIN 22.3 pg (27.0-33.4); MEAN CORPUSCULAR HGB CONC 31.9 g/dL (32.0-36.0); MEAN CORPUSCULAR VOLUME 70 fl (80-97); RED BLOOD COUNT 2.58 10^6/uL (3.72-5.28); RED CELL DISTRIBUTION WIDTH 17.7 % (11.5-14.0); WHITE BLOOD COUNT 12.8 10^3/uL (4.0-10.5)
[2017-01-09 07:56] LABS: HEMOGLOBIN 5.8 g/dL (12.0-15.5)
[2017-01-09] MEDS ORDERED: NORMAL SALINE 250 ML IV PRN (08:39)
--- NOTE | 2017-01-09 08:50 | PDOC PROGRESS REPORT ---
Subjective-OB Subjective: Post Delivery Day: 21 year old. Denies any needs at this time Sitting up in bed, feeling weak and dizzy when getting OOB, eating well, voiding , hsb at BS, vs normal, scant lochia Physical Exam (OB) Vital Signs: Temp Pulse Resp BP Pulse Ox 98.6 F 98 16 115/58 L 99 01/09/17 08:05 01/09/17 08:05 01/09/17 08:05 01/09/17 08:05 01/09/17 08:05 Intake & Output 01/08/17 01/09/17 01/10/17 06:59 06:59 06:59 Weight 76.204 kg - Lochia Lochia Amount: Small 10-25 ml Lochia Color: Rubra/Red - Abdomen Description: Soft, Round Hernia Present: No Fundal Description: Firm, Midline Fundal Height: u/u - u/2 Objective-Diagnostic Laboratory: 01/09/17 06:40 01/07/17 01/07/17 01/08/17 23:22 23:22 11:20 WBC 13.4 H RBC 4.21 Hgb 9.4 L Hct 29.6 L MCV 70 L MCH 22.3 L MCHC 31.7 L RDW 17.5 H Plt Count 125 L Seg Neutrophils % 87.4 H Lymphocytes % 6.4 L Monocytes % 5.6 Eosinophils % 0.3 Basophils % 0.3 Absolute Neutrophils 11.7 H Absolute Lymphocytes 0.9 Absolute Monocytes 0.8 Absolute Eosinophils 0.0 Absolute Basophils 0.0 Carbonic Acid 1.23 HCO3/H2CO3 Ratio 15:1 ABG pH 7.30 L ABG pCO2 40.7 ABG pO2 19.0 L* ABG HCO3 19.6 L ABG O2 Saturation 25.5 L ABG Base Excess -6.4 FiO2 CORD BLOOD Blood Type O POSITIVE Antibody Screen NEGATIVE 01/09/17 06:40 WBC 12.8 H RBC 2.58 L Hgb 5.8 L D Hct 18.1 L MCV 70 L MCH 22.3 L MCHC 31.9 L RDW 17.7 H Plt Count 103 L Seg Neutrophils % Lymphocytes % Monocytes % Eosinophils % Basophils % Absolute Neutrophils Absolute Lymphocytes Absolute Monocytes Absolute Eosinophils Absolute Basophils Carbonic Acid HCO3/H2CO3 Ratio ABG pH ABG pCO2 ABG pO2 ABG HCO3 ABG O2 Saturation ABG Base Excess FiO2 Blood Type Antibody Screen Assessment and Plan(PN) - Assessment and Plan (1) (normal spontaneous vaginal delivery) Is this a current diagnosis for this admission?: Yes (2) Anemia affecting Is this a current diagnosis for this admission?: Yes - Time Spent with Patient Time with patient: Less than 15 minutes Smoking Education Provided: Over 3 minutes Medications reviewed and adjusted accordingly: Yes - Disposition Anticipated Discharge: Home Within: within 24 hours - H&H 5.8, discussed with Dr. Ramirez and will transfuse 2 units of blood pt aware and accepts blood transfusion
[2017-01-09] MEDS: SENNOSIDES/DOCUSATE 8.6-50 MG 1 EACH TABLET PO SCH (10:16)
[2017-01-09] MEDS: PRENATAL VITAMIN W-O CA NO5/FE FUMARATE/FA CAPSULE PO SCH (10:16)
[2017-01-09] MEDS: DOCUSATE SODIUM 100 MG CAPSULE PO SCH ×2 (10:16→17:47)
[2017-01-09] MEDS: FAMOTIDINE 20 MG TABLET PO SCH ×2 (10:17→21:06)
[2017-01-09] MEDS: FERROUS SULFATE 325 MG TABLET PO SCH ×2 (10:17→17:46)
[2017-01-09 19:59] LABS: HEMATOCRIT 25.9 % (36.0-47.0); MEAN CORPUSCULAR HEMOGLOBIN 23.6 pg (27.0-33.4); MEAN CORPUSCULAR HGB CONC 32.1 g/dL (32.0-36.0); RED BLOOD COUNT 3.53 10^6/uL (3.72-5.28); RED CELL DISTRIBUTION WIDTH 19.2 % (11.5-14.0); WHITE BLOOD COUNT 12.6 10^3/uL (4.0-10.5)
[2017-01-09 20:07] LABS: HEMOGLOBIN 8.3 g/dL (12.0-15.5)
[2017-01-09 20:08] LABS: MEAN CORPUSCULAR VOLUME 74 fl (80-97)
[2017-01-10] MEDS: IBUPROFEN 800 MG TABLET PO SCH (05:35)
[2017-01-10 08:13] VITALS: BP 115/71
--- NOTE | 2017-01-10 09:09 | PDOC PROGRESS REPORT ---
Subjective-OB Subjective: Post Delivery Day: 21 year old. Denies any needs at this time Doing well, feeling alot better after blood, ready to go home, scant bleeding, eating well, ambulating, no dizziness Physical Exam (OB) Vital Signs: Temp Pulse Resp BP Pulse Ox 98.1 F 77 16 115/71 99 01/10/17 08:09 01/10/17 08:09 01/10/17 08:09 01/10/17 08:09 01/10/17 08:09 Intake & Output 01/09/17 01/10/17 01/11/17 06:59 06:59 06:59 Intake Total 600 Balance 600 Weight 76.204 kg - Lochia Lochia Amount: Scant < 10 ml Lochia Color: Rubra/Red - Abdomen Description: Soft, Round Hernia Present: No Fundal Description: Firm, Midline Fundal Height: u/u - u/2 Objective-Diagnostic Laboratory: 01/09/17 19:50 01/07/17 01/09/17 23:22 19:50 WBC 12.6 H RBC 3.53 L Hgb 8.3 L D Hct 25.9 L MCV 74 L D MCH 23.6 L MCHC 32.1 RDW 19.2 H Plt Count 129 L Blood Type O POSITIVE Antibody Screen NEGATIVE Assessment and Plan(PN) - Assessment and Plan (1) (normal spontaneous vaginal delivery) Is this a current diagnosis for this admission?: Yes (2) Anemia affecting Is this a current diagnosis for this admission?: Yes - Time Spent with Patient Smoking Education Provided: Over 3 minutes Medications reviewed and adjusted accordingly: Yes - Disposition Anticipated Discharge: Home Within: Other - home today
--- NOTE | 2017-01-10 09:15 | PDOC DISCHARGE SUMMARY ---
Final Diagnosis Discharge Date: 01/10/17 - Final Diagnosis (1) (normal spontaneous vaginal delivery) Is this a current diagnosis for this admission?: Yes (2) Anemia affecting Is this a current diagnosis for this admission?: Yes Discharge Data - Discharge Medication Home Medications: Vit/Iron Fumarate/FA [ Tablet] 1 tab PO DAILY 11/08/16 Ferrous Sulfate [Feosol 325 mg Tablet] 325 mg PO BID #60 tablet 01/10/17 Gestational Age: 40.3 Procedures: NST, Ultrasound Complication(s): Laceration-Vaginal, Laceration-Periurethral Laceration-Degree: 1st - [place] Data Baby 1 Female at 1 minute: 8 at 5 minutes: 9 Weight: 4.224 kg Home with Mother: Yes Complications: No - Diagnosis Test Laboratory: Temp Pulse Resp BP Pulse Ox 98.1 F 77 16 115/71 99 01/10/17 08:09 01/10/17 08:09 01/10/17 08:09 01/10/17 08:09 01/10/17 08:09 01/07/17 01/09/17 01/09/17 23:22 06:40 19:50 RBC 4.21 2.58 L 3.53 L Hgb 9.4 L 5.8 L D 8.3 L D Hct 29.6 L 18.1 L 25.9 L - Discharge information/Instructions Discharge Activity: Activity As Tolerated, Pelvic Rest, Slowly Increase Activity , No tub bath Discharge Diet: As Tolerated, Regular Disposition: HOME, SELF-CARE Follow up with: [facility] in: 4, Weeks
[2017-01-10] MEDS: DOCUSATE SODIUM 100 MG CAPSULE PO SCH (09:55)
[2017-01-10] MEDS: FERROUS SULFATE 325 MG TABLET PO SCH (09:55)
[2017-01-10] MEDS: PRENATAL VITAMIN W-O CA NO5/FE FUMARATE/FA CAPSULE PO SCH (09:55)
[2017-01-10] MEDS: SENNOSIDES/DOCUSATE 8.6-50 MG 1 EACH TABLET PO SCH (09:55)
[2017-01-10] MEDS: FAMOTIDINE 20 MG TABLET PO SCH (09:56)
== END 2017-01-10 11:05 | disposition home or self-care (01) | DRG 775 ==
LOC: LC 22:49 → LR 23:08 → 2S 01-08 15:50
PROVIDERS: ADMIT Obstetrics & Gynecology; ATTEND Obstetrics & Gynecology
PROC: 10E0XZZ Delivery of Products of Conception, External Approach (ICD-10-PCS; principal; 2017-01-08)
PROC: 0UQMXZZ Repair Vulva, External Approach (ICD-10-PCS; 2017-01-08)
PROC: 4A1HXCZ Monitoring of Products of Conception, Cardiac Rate, External Approach (ICD-10-PCS; 2017-01-08)
PROC: 30233N1 Transfusion of Nonautologous Red Blood Cells into Peripheral Vein, Percutaneous Approach (ICD-10-PCS; 2017-01-09)
DX: O41.1230 Chorioamnionitis, third trimester, not applicable or unspecified (principal); O77.0 Labor and delivery complicated by meconium in amniotic fluid; O71.82 Other specified trauma to perineum and vulva; O99.02 Anemia complicating childbirth; D64.9 Anemia, unspecified; Z3A.40 40 weeks gestation of pregnancy; Z37.0 Single live birth
CPT/HCPCS: 36415; 36430; 82803; 85025; 85027; 86592; 86850; 86900; 86901; 86920; 88307; 94760; J2210; J2590; J3490; P9016